=== PATIENT | female | born 1955 | race Caucasian/White ===

== ENCOUNTER → 2020-11-27 13:17 | Outpatient (CLI) | payer MEDICARE, SELFPAY ==
--- NOTE | ~2020-11-27 | MM_ITS ---
EXAMINATION: MM screening [facility] BI w kael HISTORY: Screening mammogram TECHNIQUE: Craniocaudal and mediolateral oblique 3-D tomosynthesis images were obtained and synthetic 2-D images were generated. CAD analysis was submitted and interpreted. COMPARISON: 12/20/2018, 10/01/2012 BREAST PARENCHYMAL COMPOSITION: There are scattered areas of fibroglandular density. FINDINGS: There is no evidence of suspicious mass, calcification, or architectural distortion to sugg est malignancy in either breast. There has been no suspicious interval change. IMPRESSION: 1. No mammographic evidence of malignancy. 2. Recommend routine screening mammography in one year. BI-RADS Category 1: Negative Reviewed, dictated and finalized at location A.
== END ==
PROVIDERS: PCP Family Medicine Adolescent Medicine; Visit Provider Family Medicine Adolescent Medicine
DX: Z12.31 Encounter for screening mammogram for malignant neoplasm of breast (principal)
CPT/HCPCS: 77063; 77067

== ENCOUNTER 2022-04-15 07:52 | Emergency (ER) | payer MEDICARE, SELFPAY ==
[2022-04-15] VITALS (19 sets, daily range): BP systolic 134–153; BP diastolic 65–85; PULSE 57–76; RESP 13–22; TEMP 36.6–36.7; O2SAT 93–100
--- NOTE | ~2022-04-15 | XR_ITS ---
XR chest 2V DATE: 04/15/2022 08:15 INDICATION: Midline chest pain. History of hypertension. TECHNIQUE: PA and lateral views COMPARISON: 12/07/2018 PA and lateral chest FINDINGS: Borderline heart size. No hilar or mediastinal enlargement. No pulmonary infiltrate or cons olidation, pleural effusion or pulmonary vascular congestion or pneumothorax. Calcified primary compl ex on the left consistent with old pulmonary granulomatous disease. Osteopenia. IMPRESSION: No active disease or significant change since 12/07/2018 Reviewed, dictated and finalized at location A.
--- NOTE | 2022-04-15 07:53 | ECG_ITS ---
Measurements Intervals [place] Rate: 72 P: 46 VT: 130 QRS: 5 QRSD: 89 T: 14 QT: 378 QTc: 416 Interpretive Statements SINUS RHYTHM MINIMAL ST DEPRESSION [0.025+ mV ST DEPRESSION] ABNORMAL ECG NO PREVIOUS ECG AVAILABLE FOR COMPARISON Electronically Signed On 04-15-2022 10:47:54 CDT by Johnie Aguilar M.D.
--- NOTE | 2022-04-15 08:01 | ED.CHESTPAIN ---
HPI - Chest Pain General Chief Complaint: Chest Pain Stated Complaint: chest pain, nauseated Time Seen by Provider: 04/15/22 07:54 History of Present Illness HPI narrative: 58-year-old female with a history of GERD presents here with midsternal chest pressure that seems to come up to her neck that started after she ate [place] food last night around 8 PM, accompanied by nausea, denies any difficulty breathing, no focal numbness or weakness. Feels similar to reflux except symptoms lasted all night. No family or personal history of heart problems. Related Data Allergies Allergy/AdvReac Type Severity Reaction Status Date / Time No Known Allergies Allergy Verified 04/15/22 08:04 Review of Systems Review of Systems: CONST: No fever. HEENT: No sore throat C/V: Chest pressure RESP: No difficulty breathing GI: Nausea, epigastric discomfort : No dysuria. M/S: No joint pain. SKIN: No rash. NEURO: [No headache or focal numbness or weakness] PSYCH: [No depression] [facility] Past Medical History Medical History (Updated 04/15/22 @ 11:53 by Tere Tabor MD) GERD (gastroesophageal reflux disease) Surgical History Surgical History (Updated 04/15/22 @ 11:52 by Tere Tabor MD) H/O endoscopy Exam Narrative: EXAMINATION OF ORGAN SYSTEMS/BODY AREAS: Constitutional: Vital signs per nursing GENERAL:Appears uncomfortable in bed HEAD: Normal with no signs of head trauma. EYES: EOMI, conjunctiva normal ENT: Hearing grossly intact LUNGS: Nonlabored breathing. HEART: [Regular rate and rhythm] ABD: [Soft], [mildly tender to palpation epigastric] EXT: Normal range of motion, normal pulses bilateral radial/DP SKIN: [No rashes or lesions.] NEURO: [Alert and oriented x 3. No gross focal sensory or strength deficits.] PSYCH: Normal affect Course Vital Signs Vital signs: Vital Signs Temperature 98.1 F 04/15/22 07:55 Pulse Rate 72 04/15/22 07:55 Respiratory Rate 20 04/15/22 07:55 Blood Pressure 150/85 H 04/15/22 07:55 Pulse Oximetry 99 04/15/22 07:55 Oxygen Delivery Room Air 04/15/22 07:55 Temperature 97.8 F 04/15/22 12:44 Pulse Rate 76 04/15/22 12:44 Respiratory Rate 20 04/15/22 12:44 Blood Pressure 144/77 H 04/15/22 12:44 Pulse Oximetry 94 04/15/22 12:44 Oxygen Delivery Room Air 04/15/22 07:55 MDM - Chest Pain MDM Narrative Medical decision making narrative: ED COURSE AND MEDICAL DECISION MAKIN-year-old female presenting with chest /epigastric pain, I suspect likely GI (gastritis vs PUD), though with her symptoms/risk factors, cardiac workup is initiated. EKG does show some minimal ST depressions in multiple leads; two troponin levels therefore obtained, and both are negative. She is treated with famotidine/zofran. On repeat evaluation, her symptoms resolving, she is no acute distress, I have lower concern for cardiac cause of her symptoms, especially with symptom onset after eating which is similar to her usual heartburn, and nonexertional discomfort, which improved with GI cocktail. I had a long discussion with the patient and with shared decision making, she is comfortable with outpatient management with her own GI doctor and cardiology. She was given clear return instructions by myself in person as well as on discharge paperwork. Procedures: Pulse oximetry interpretation - not hypoxic. EKG interpretation. Review of medical records. Lab Data Result diagrams: 04/15/22 08:05 04/15/22 08:05 Labs: Lab Results 04/15/22 04/15/22 04/15/22 Range/Units 08:05 08:05 08:05 WBC 9.2 (4.5-10.0) K/mm3 RBC 4.77 (4.2-5.4) M/mm3 Hgb 15.4 H (12.0-15.0) g/dL Hct 45.3 (37.0-47.0) % MCV 95.0 (80-100) fl MCH 32.3 (26-34) pg MCHC 34.0 (32-36) g/dl RDW 12.7 (11.5-14.5) % Plt Count 211 (150-375) k/mm3 MPV 9.3 (7.4-10.4) fl Immature Gran % (Auto) 0.2 (0-0.5) % Neut % (Auto) 79.6 H (45.5-73.1
[2022-04-15] MEDS: ONDANSETRON INJ 4 MG/2 ML VIAL IV PUSH (08:06)
[2022-04-15] MEDS: FAMOTIDINE 20 MG/2 ML VIAL IV PUSH (08:06)
[2022-04-15] MEDS: PANTOPRAZOLE SODIUM IV 40 MG VIAL IV PUSH (08:06)
[2022-04-15 08:10] LABS: Basophils Percent Auto 0.4 % (0.2-1.2); Eosinophils Percent Auto 0.4 % (0-4.4); Hematocrit 45.3 % (37.0-47.0); Hemoglobin 15.4 g/dL (12.0-15.0); Immature Granulocyte Absolute 0.02 K/mm3 (0.00-0.031); Immature Granulocyte Percent A 0.2 % (0-0.5); Lymphocytes Absolute Auto 1.18 K/mm3 (0.9-3.2); Lymphocytes Percent Auto 12.8 % (18.3-44.2); Mean Corpuscular Hemoglobin 32.3 pg (26-34); Mean Platelet Volume 9.3 fl (7.4-10.4); Monocytes Absolute Auto 0.6 K/mm3 (0.1-0.6); Monocytes Percent Auto 6.6 % (2.6-8.5); Neutrophils Absolute Auto 7.3 K/mm3 (1.3-6.7); Neutrophils Percent Auto 79.6 % (45.5-73.1); Platelet Count Result 211 k/mm3 (150-375); Red Blood Count 4.77 M/mm3 (4.2-5.4); Red Cell Distribution Width 12.7 % (11.5-14.5); White Blood Count 9.2 K/mm3 (4.5-10.0)
[2022-04-15 08:22] LABS: Alanine Aminotransferase 17 U/L (6-35); Albumin Level 4.8 g/dL (3.5-5.1); Alkaline Phosphatase 74 U/L (38-126); Anion Gap 9 mmol/L (8-16); Aspartate Amino Transferase 22 U/L (14-36); Bilirubin,Total 1.3 mg/dL (0.2-1.3); Blood Urea Nitrogen 10 mg/dL (7-17); Carbon Dioxide 29 mmol/L (22-30); Chloride 100 mmol/L (98-107); Estimated CRCL calculation 80 ml/min; Estimated Glomerular Filt Rate > 60; Glucose 121 mg/dL (65-110); Lipase 51 U/L (23-300); Potassium 3.9 mmol/L (3.4-5.0); Sodium 138 mmol/L (137-145)
[2022-04-15 08:26] LABS: INR 1.1; Prothrombin Time 13.7 Seconds (11.1-14.7)
[2022-04-15 08:27] LABS: Partial Thromboplastin Time 27.4 SECONDS (22.3-36.8)
[2022-04-15 08:33] LABS: Troponin I 0.033 ng/mL (0.000-0.034)
[2022-04-15 11:28] LABS: Troponin I 0.029 ng/mL (0.000-0.034)
== END 2022-04-15 12:44 | disposition home or self-care (01) ==
PROVIDERS: Emergency Provider Emergency Medicine; PCP Family Medicine Adolescent Medicine
DX: R07.89 Other chest pain (principal); K21.9 Gastro-esophageal reflux disease without esophagitis; R94.31 Abnormal electrocardiogram [ECG] [EKG]
CPT/HCPCS: 36415; 71046; 80053; 83690; 84484; 85025; 85610; 85730; 93005; 96374; 96375; 99284; C9113; J2405

== ENCOUNTER 2022-11-24 10:34 | Outpatient (CLI) | payer MEDICARE, SELFPAY ==
[2022-11-24 11:09] LABS: Alanine Aminotransferase 17 U/L (6-35); Albumin Level 4.3 g/dL (3.5-5.1); Alkaline Phosphatase 66 U/L (38-126); Anion Gap 7 mmol/L (8-16); Aspartate Amino Transferase 22 U/L (14-36); Bilirubin,Total 1.4 mg/dL (0.2-1.3); Blood Urea Nitrogen 14 mg/dL (7-17); Calcium 8.8 mg/dL (8.4-10.2); Carbon Dioxide 29 mmol/L (22-30); Chloride 104 mmol/L (98-107); Cholesterol 182 mg/dL (0-200); Estimated Glomerular Filt Rate > 60; Glucose 92 mg/dL (65-110); HDL Direct 71 mg/dL; Potassium 3.9 mmol/L (3.4-5.0); Sodium 140 mmol/L (137-145); Triglycerides 76 mg/dL (<150); Uric Acid 4.7 mg/dL (2.5-7.5)
[2022-11-24 11:20] LABS: LDL Cholesterol Direct 84 mg/dL
== END 2022-11-24 10:35 | disposition home or self-care (01) ==
PROVIDERS: PCP Family Medicine Adolescent Medicine; Visit Provider Physician Assistant
DX: M10.9 Gout, unspecified (principal); Z13.220 Encounter for screening for lipoid disorders; I12.9 Hypertensive chronic kidney disease with stage 1 through stage 4 chronic kidney disease, or unspecified chronic kidney disease; N18.30 Chronic kidney disease, stage 3 unspecified
CPT/HCPCS: 36415; 80053; 80061; 84550

== ENCOUNTER 2022-12-16 06:49 | Emergency (ER) | payer MEDICARE, SELFPAY ==
[2022-12-16 07:01] VITALS: BP 134/79; PULSE 59; RESP 18; TEMP 36.6; O2SAT 100
[2022-12-16] MEDS: KETOROLAC 30 MG/ML VIAL (*BKC) IM (08:11)
--- NOTE | 2022-12-16 08:25 | ED.GENADULT ---
HPI - General Adult General Chief complaint: Neck Pain/Injury Stated complaint: Neck pain Time Seen by Provider: 12/16/22 07:30 History of Present Illness HPI narrative: Patient is a 67-year-old female who presents to the ER with neck pain. Located over the right trapezius. Ongoing since yesterday. Has point tenderness. No known injury. Was sent home from work today. Reports this happens to her several times a year. She has been taking some baclofen without improvement. No focal weakness of her arm. She does occasionally get some tingling that will go into her arm. She reports usually this is improved with massage but her masseuse is currently booked. No fevers or chills or sweats. No redness. No additional concern. Pain worse with direct pressure, turning the head, and occasional movements of the arm. Related Data Home Medications Medication Instructions Recorded Confirmed biotin 5,000 mcg sublingual tablet 5,000 mcg sublingual DAILY 11/18/22 11/18/22 Allergies Allergy/AdvReac Type Severity Reaction Status Date / Time No Known Allergies Allergy Verified 11/18/22 14:52 Review of Systems Constitutional: Constitutional: Denies chills and Denies fever(s) Musculoskeletal: Musculoskeletal: Denies arthralgias, Denies joint swelling and Reports muscle cramps Integumentary/Breasts: Skin/Breast: Denies erythema and Denies rash Neurologic: Denies focal weakness and Denies numbness Comments: Right arm tingling intermittent PMFSH Past Medical History Medical History (Updated 12/16/22 @ 08:26 by Max Marie MD) GERD (gastroesophageal reflux disease) Surgical History Surgical History (Updated 11/18/22 @ 17:36 by Kathy Sheets, CHELSIE) H/O endoscopy History of foot surgery Bilateral - 1988 History of total knee arthroplasty Bilateral 2012 History of tubal ligation Family History Family History (Updated 11/18/22 @ 17:37 by Kathy Sheets, CHELSIE) Father Hypertension Mother , Age 51 Ovarian cancer Social History Social History (Updated 11/18/22 @ 17:36 by Kathy Sheets, CHELSIE) Smoking status: Former smoker Alcohol intake: current Alcohol use details: Beer a couple of nights per week. Occupation/Education: occupation Gender identity (if verbalized by the patient): Female Exam Narrative: GENERAL: Well-appearing, well-nourished, and in no acute distress. HEAD: Normocephalic, atraumatic. ENT: Mucous membranes moist. EXTREMITIES: Normal range of motion. No edema. Tender palpation of the right trapezius musculature with palpable knotting at location of maximal tenderness. SKIN: Warm, dry, no rash. NEURO: Alert and oriented x3. PSYCH: Normal mood and affect. Course Course Emergency Course: Discussed diagnosis and treatment plan with the patient. She verbalized understanding. 1 dose of Toradol here. Continue baclofen at home in conjunction with anti-inflammatories. Recommend massage and hydration. Vital Signs Vital signs: Vital Signs Temperature 97.8 F 12/16/22 07:01 Pulse Rate 59 L 12/16/22 07:01 Respiratory Rate 18 12/16/22 07:01 Blood Pressure 134/79 12/16/22 07:01 Pulse Oximetry 100 12/16/22 07:01 Temperature 97.8 F 12/16/22 07:01 Pulse Rate 59 L 12/16/22 07:01 Respiratory Rate 18 12/16/22 07:01 Blood Pressure 134/79 12/16/22 07:01 Pulse Oximetry 100 12/16/22 07:01 Medical Decision Making Vital Signs Vital Signs: Vital Signs Temperature 97.8 F 12/16/22 07:01 Pulse Rate 59 L 12/16/22 07:01 Respiratory Rate 18 12/16/22 07:01 Blood Pressure 134/79 12/16/22 07:01 Pulse Oximetry 100 12/16/22 07:01 Temperature 97.8 F 12/16/22 07:01 Pulse Rate 59 L 12/16/22 07:01 Respiratory Rate 18 12/16/22 07:01 Blood Pressure 134/79 12/16/22 07:01 Pulse Oximetry 100 12/16/22 07:01 Discharge Plan Discharge Clinical Impression: Strain of trapezius muscle Patient
== END 2022-12-16 08:55 | disposition home or self-care (01) ==
PROVIDERS: Emergency Provider Emergency Medicine; PCP Family Medicine Adolescent Medicine
DX: S46.811A Strain of other muscles, fascia and tendons at shoulder and upper arm level, right arm, initial encounter (principal); K21.9 Gastro-esophageal reflux disease without esophagitis; Z96.653 Presence of artificial knee joint, bilateral; Z87.891 Personal history of nicotine dependence; X58.XXXA Exposure to other specified factors, initial encounter
CPT/HCPCS: 96372; 99283; J1885

== ENCOUNTER 2023-02-24 10:35 | Outpatient (CLI) | payer MEDICARE, SELFPAY ==
--- NOTE | 2023-02-24 | ECG_ITS ---
Measurements Intervals [place] Rate: 63 P: 62 [place]: 107 QRS: 17 QRSD: 104 T: 32 QT: 405 QTc: 417 Interpretive Statements SINUS RHYTHM WITH SHORT [place] INTERVAL NONSPECIFIC ST ABNORMALITY ABNORMAL ECG COMPARED TO ECG 04/15/2022 07:59:16 NO SIGNIFICANT CHANGES Electronically Signed On 02-24-2023 12:02:06 CDT by Johnie Aguilar M.D.
[2023-02-24 11:44] LABS: Alanine Aminotransferase 17 U/L (6-35); Albumin Level 4.1 g/dL (3.5-5.1); Alkaline Phosphatase 53 U/L (38-126); Anion Gap 0 mmol/L (8-16); Aspartate Amino Transferase 24 U/L (14-36); Bilirubin,Total 1.2 mg/dL (0.2-1.3); Blood Urea Nitrogen 17 mg/dL (7-17); Calcium 9.2 mg/dL (8.4-10.2); Carbon Dioxide 34 mmol/L (22-30); Chloride 105 mmol/L (98-107); Estimated Glomerular Filt Rate > 60; Glucose 97 mg/dL (65-110); Potassium 4.4 mmol/L (3.4-5.0); Sodium 139 mmol/L (137-145)
== END 2023-02-24 10:36 | disposition home or self-care (01) ==
LOC: ANHLAB 10:38
PROVIDERS: PCP Family Medicine Adolescent Medicine; Visit Provider Podiatrist Foot & Ankle Surgery
DX: Z01.818 Encounter for other preprocedural examination (principal); R94.31 Abnormal electrocardiogram [ECG] [EKG]
CPT/HCPCS: 36415; 80053; 93005

== ENCOUNTER 2024-10-05 00:48 | Day surgery (SDC) | payer MEDICARE, SELFPAY ==
[2024-09-21 11:19] VITALS: BMI 27.4
--- OUTSIDE RECORDS SUMMARY | 2024-10-05 00:51 | XMS_ITS | Clinical Summary ---
Author Organization [facility] Address [address] [place] [id number] Care Team Providers Care Collar Stitcher Name Role Phone Thong Landaverde MD Primary Care Provider [phone] Social History Tobacco Use Types Packs/Day Years Used Date Smoking Tobacco: Never Assessed Comments Unknown Sex and Gender Information Value Date Recorded Sex Assigned at Not on file Legal Sex Female 8:08 PM CDT Gender Identity Not on file Sexual Orientation Not on file Plan of Treatment Health Maintenance Due Date Last Done Comments Colorectal Cancer Screening Colonoscopy (10 Years) 1953 Hepatitis C 1971 DTaP, Tdap and Td Vaccines ( 1 - Tdap) 1972 Mammogram Screening 1993 Zoster Vaccines (1 of 2) 2003 Dexa Scan (General) 2018 Pneumococcal Vaccine: 65+ Ye ars (1 of 1 - PCV) 2018 COVID-19 Vaccine ( - 2023-2 5 season) 2024 Influenza Adult (#1) 2024 RSV Immunization or 60+ Years (1 - 1-dose 75+ series) 2028 Meningococcal B Vaccine Aged Out No l onger eligible based on patient's age to complete this topic Meningococcal Vaccine Aged Out No machelle kyle eligible based on patient's age to complete this topic RSV Immunizations Under 20 Months Aged Out No longer eligible based on patient's age to complete this topic Care Teams Collar Stitcher Relationship Specialty Start Date End Date Thong Landaverde MD [address] [address] PCP - General 06/09/10
[2024-10-05 11:07] VITALS: BP 140/82; PULSE 140; RESP 16; TEMP 36.8; O2SAT 98
[2024-10-05] MEDS: LACTATED RINGERS 1,000 ML 150 ML IV CONT (11:18)
--- NOTE | 2024-10-05 11:32 | P.PNAN_ITS ---
Anes - Initial Pre Proc Eval Procedure: Operation Date: 10/05/24 12:30 Proposed Procedures p Esophagogastroduodenoscopy - Roshan Jones MD Date/Time: 10/05/24 11:32 Surgeon: Roshan Jones MD Pre Op Diagnosis: GERD Patient Data Age: 69 Gender: F Height: 1.68 m Weight: 80.3 kg Last Vital Signs Temp 36.8 C 10/05/24 11:07 Pulse 140 H 10/05/24 11:07 Resp 16 10/05/24 11:07 BP 140/82 10/05/24 11:07 Pulse Ox 98 10/05/24 11:07 O2 Del Method Room Air 10/05/24 11:07 Allergies Allergy/AdvReac Type Severity Reaction Status Date / Time No Known Allergies Allergy Verified 10/05/24 11:01 Home Medications ?Medication ?Instructions ?Recorded ?Confirmed ?Type losartan 50 mg-hydrochlorothiazide See Rx Instructions .Route 12/25/23 10/05/24 Rx 12.5 mg tablet .COMPLEX #30 tabs dicyclomine 10 mg capsule 10 mg PO BID PRN diarrhea #30 caps 08/02/24 09/21/24 Rx Patient hx anesthesia problems: none Family hx anesthesia problems: none Results Review: All pre-operative results and documents have been reviewed as part of the pre- operative evaluation. [facility] Past Medical History Medical History (Updated 10/05/24 @ 11:33 by Tam Hernandez MD) Hypertension Difficulty swallowing GERD (gastroesophageal reflux disease) Surgical History Surgical History History of total knee arthroplasty (2012) Bilateral 2012 History of foot surgery (1988) Bilateral - 1988 History of tubal ligation (1991) H/O endoscopy Family History Family History Father Hypertension Mother , Age 51 Ovarian cancer Social History Social History Smoking status: Former smoker Alcohol intake: current Alcohol use details: Beer a couple of nights per week. Substance use: current Substance use type: marijuana Other substance usage details: smokes Do You Feel Safe in your Home?: Yes Lack of Transportation: No Lack of Food: Never True Current Housing: I Have Housing Concerned About Future Housing: No Difficulty Paying Gas/Electric Bills: No Difficulty Paying for Meds: No Currently Unemployed: No Education: High School Diploma/GED Difficulty w/ Childcare or Family Care: No Occupation/Education: occupation Gender identity (if verbalized by the patient): Female Anes - Evponcho Final PreProcedure Day of Procedure 10/05/24 11:32 Patient weight: overweight Heart: regular rate and rhythm Lungs: clear to auscultation Airway: Mallampati scale class II Neurological: alert and oriented Last oral intake: >/= 8 hours ASA classification: II Emergent: no Anesthetic plan: proceed Anesthesia type and monitoring: general GIVS and standard monitoring Results Review: All pre-operative results and documents have been reviewed as part of the pre- operative evaluation. Informed Consent: The patient's anesthetic plan and its attendant risks and benefits were discussed with the patient/family/POA. Questions were solicited and answers provided to the satisfaction of the patient/family/POA.
--- NOTE | 2024-10-05 12:39 | PM.IMHP ---
H&P: HPI History of Present Illness Date/Time: 10/05/24 12:39 Chief Complaint: Dysphagia Narrative: the patient has a history of chronic GERD, and at least 15 years of intermittent dysphagia. She has undergone several sessions of endoscopic dilatation, approximately every 3 years. she is currently experiencing intermittent dysphagia to solid foods again. She is here for EGD. Review of Systems Review of Systems: All systems reviewed & are unremarkable except as noted in HPI and below PMFSH Past Medical History Medical History (Updated 10/05/24 @ 12:41 by Roshan Jones MD) Difficulty swallowing Hypertension GERD (gastroesophageal reflux disease) Surgical History Surgical History History of total knee arthroplasty (2012) Bilateral 2012 History of foot surgery (1988) Bilateral - 1988 History of tubal ligation (1991) H/O endoscopy Family History Family History Father Hypertension Mother , Age 51 Ovarian cancer Social History Social History Smoking status: Former smoker Alcohol intake: current Alcohol use details: Beer a couple of nights per week. Substance use: current Substance use type: marijuana Other substance usage details: smokes Do You Feel Safe in your Home?: Yes Lack of Transportation: No Lack of Food: Never True Current Housing: I Have Housing Concerned About Future Housing: No Difficulty Paying Gas/Electric Bills: No Difficulty Paying for Meds: No Currently Unemployed: No Education: High School Diploma/GED Difficulty w/ Childcare or Family Care: No Occupation/Education: occupation Gender identity (if verbalized by the patient): Female Meds Home Medications and Allergies Home Medications ?Medication ?Instructions ?Recorded ?Confirmed ?Type losartan 50 mg-hydrochlorothiazide See Rx Instructions .Route 12/25/23 10/05/24 Rx 12.5 mg tablet .COMPLEX #30 tabs dicyclomine 10 mg capsule 10 mg PO BID PRN diarrhea #30 caps 08/02/24 09/21/24 Rx Allergies Allergy/AdvReac Type Severity Reaction Status Date / Time No Known Allergies Allergy Verified 10/05/24 11:01 Vital Signs Vital Signs - 24 hr 10/05/24 11:07 Temperature 98.3 F Pulse Rate 140 H Respiratory Rate 16 Blood Pressure 140/82 Pulse Oximetry 98 Oxygen Delivery Room Air Exam Const: General: cooperative and healthy appearing Resp: Effort & Inspection: normal respiratory effort and able to speak in complete sentences Auscultation: clear to auscultation bilaterally Cardio: Rate: regular rate Rhythm: regular rhythm GI: Inspection: normal to inspection GI Palp: No No hepatosplenomegaly present Auscultation: normal bowel sounds Rectal Exam: deferred Skin: General skin exam: normal color Psych: Appearance: grossly normal Mental Status: mental status grossly normal Assessment and Plan Assessment and plan (1) GERD (gastroesophageal reflux disease): Code(s): K21.9 - Gastro-esophageal reflux disease without esophagitis Status: Acute (2) Difficulty swallowing: Code(s): R13.10 - Dysphagia, unspecified Status: Acute Assessment and Plan: The patient is deemed a good candidate for the procedure. differential diagnosis includes peptic stricture versus Schatzki ring. Consent signed. Will proceed. Will perform dilatation if needed.
[2024-10-05 13:02] VITALS: BP 138/82; PULSE 90; RESP 20; O2SAT 98
[2024-10-05 13:12] VITALS: BP 131/81; PULSE 69; RESP 20; O2SAT 100
[2024-10-05 13:22] VITALS: BP 134/79; PULSE 68; RESP 22; O2SAT 98
== END 2024-10-05 13:32 | disposition home or self-care (01) ==
PROVIDERS: PCP Family Medicine Adolescent Medicine; Referring Provider Nurse Practitioner Family; Visit Provider Internal Medicine Gastroenterology
PROC: 0DJ08ZZ Inspection of Upper Intestinal Tract, Via Natural or Artificial Opening Endoscopic (ICD-10-PCS; CPT 43249; principal; 2024-10-05 12:30)
DX: K22.2 Esophageal obstruction (principal); K21.9 Gastro-esophageal reflux disease without esophagitis; K44.9 Diaphragmatic hernia without obstruction or gangrene; I10 Essential (primary) hypertension; F12.90 Cannabis use, unspecified, uncomplicated; Z98.890 Other specified postprocedural states; Z98.51 Tubal ligation status; Z87.891 Personal history of nicotine dependence; Z80.41 Family history of malignant neoplasm of ovary
CPT/HCPCS: 43249; C1726; J7120

== ENCOUNTER 2025-03-27 12:02 | Outpatient (CLI) | payer MEDICARE, SELFPAY ==
--- OUTSIDE RECORDS SUMMARY | 2025-03-27 12:08 | XMS_ITS | Clinical Summary ---
Author Organization [facility] Address [address] [place] [address] Phone Care Team Providers Care Product Marketing Engineer Name Role Phone Unavailable Primary Care Provider Unavailabl e Allergies No known active allergies Medications amoxicillin-cla vulanate (AUGMENTIN) 875-125 mg tablet Take 1 Tablet by mouth every 12 hours for 10 days. Take all doses with food to minimize upset stomach/nause a. 20 Tablet 03/26/2025 8:09 PM CDT 03/26/2025 04/05/20 25 Active ondansetron (ZOFRAN ODT) 4 mg Tablet, Rapid Dissolve Dissolve 1 Tablet (4 mg) on top of tongue and swallow with saliva every 8 hours as needed for nausea/vomiti ng. 10 Tablet 03/26/2025 8:09 PM CDT 03/26/2025 Active Encounters Date Type Department Care Team Description 03/26/2025 2:19 PM CDT - 03/26/2025 8:14 PM CDT Emergency [facility] Emergency Department [address] [place] [address] Luis Armando Mejia MD Enteritis (Primary Dx) Discharge Disposition: Home or Self Care 03/26/2025 Travel from Last 3 Months Social History Tobacco Use Types Packs/Day Years Used Date Smoking Tobacco: Never Smokeless Tobacco: Never Tobacco Cessation:Counseling Given: Not Answered Alcohol Use Standard Drinks/Week Comments Yes 30 (1 standard drink = 0.6 oz pu re alcohol) Comments Unknown Sex and Gender Information Value Date Recorded Sex Assigned at Not on file Legal Sex Female 9:38 AM CDT Gender Identity Not on file Sexual Orientation Not on file Last Filed Vital Signs Vital Sign Reading Time Taken Comments Blood Pressure 106/82 03/26/2025 7:50 PM CDT Pulse 69 03/26/2025 7:50 PM CDT Temperature 36.2 C (97.2 F) 03/26/2025 1:07 PM CDT Respiratory Rate 14 03/26/2025 7:50 PM CDT Oxygen Saturation 98% 03/26/2025 7:50 PM CDT Inhaled Oxygen Concentration - - Weight 79.4 kg (175 lb) 03/26/2025 2:53 PM CDT Height 165.1 cm (5' 5) 03/26/2025 2:53 PM CDT Body Mass Index 29.12 03/26/2025 2:53 PM CDT Plan of Treatment Health Maintenance Due Date Last Done Comments DTAP/TDAP/TD VACCINES (1 - Tdap) 1972 BREAST CANCER SCREENING 1993 COLORECTAL SCREENING 1998 Colorectal Cancer Screening 1998 FIT-DNA Q 3 years 1998 FIT/FOBT Q 1 year 1998 Flex Sig/CT Colonography Q 5 years 1998 PNEUMOCOCCAL VACCINE 50+ YEARS (1 of 1 - PCV) 09/22/19 04 ZOSTER VACCINE (1 of 2) 2003 OSTEOPOROSIS SCREENING 2018 Medicare Advantage ([place]) Prev entative Visit/Annual Wellness Visit 08/30/2024 INFLUENZA VACCINE (#1) 2025 RSV VACCINE (60+ or ) (1 - 1-dose 75+ series) 2028 Procedures Procedure Name Priority Date/Time Associated Diagnosis Comments GI PATHOGEN PCR PANEL Stat 03/26/2025 8:[address] ABDOMEN PELVIS W CONTRAST Stat 03/26/2025 6:47 PM CDT EXTRA TUBE (URINE WOODARD) Stat 03/26/2025 5:48 PM CDT URINALYSIS W/REFLEX MICROSCOPIC Stat 03/26/2025 5:48 PM CDT ETHANOL LEVEL Stat 03/26/2025 2:14 PM CDT LIPASE Stat 03/26/2025 2:14 PM CDT TROPONIN 2 HR, 5TH GEN Timed Study 03/26/2025 2:14 PM CDT XR CHEST PA OR AP 1 VW Stat 03/26/2025 12:12 PM CDT EXTRA TUBE (BLUE) Stat 03/26/2025 10: 03 AM CDT EXTRA TUBE Stat 03/26/2025 10:03 AM CDT COMPREHENSIVE METABOLIC PANEL Stat 03/26/2025 10:03 AM CDT CBC WITH DIFFERENTIAL Stat 03/26/2025 10:03 AM CDT TROPONIN BASELINE, 5TH GEN Stat 03/26/2025 10:03 AM CDT EKG 12-LEAD Stat 03/26/2025 9:53 AM CDT from Last 3 Months Results * GI PATHOGEN PCR PANEL (03/26/2025 8:03 PM CDT) [facility] GI Pathogen PCR panel NOT DETECTED No nucleic acids detected. 03/26/2025 9:36 PM CDT [facility] Stool STOOL SPECIMEN / Unknown Collection / Unknown 03/26/2025 8:03 PM CDT 03/26/2025 8:06 PM CDT Narrative [facility] - 03/26/2025 9:36 PM CDT The Film Array GI Panel is a multiplexed nucleic acid detection test for 22 targets of bacteria, viruses, and parasites in stool that cause infectious diarrhea. Bacteria: Campylobacter C. difficile Plesiomonas shigelloides Salmonella Vibrio Vibrio cholerae Yersinia enterocolitica Enteroaggregative E. Coli (EAEC) Enteropathogenic E. Coli (EPEC) Enterotoxigenic E. Coli (ETEC) Shiga-like toxin-producing E. Coli (STEC) E. Coli O157 Shigella/Enteroinvasive E. Coli (EIEC) Viruses: Adenovirus F 40/41 Astrovirus Norovirus GI/GII Rotavirus A Sapovirus Parasites: Cryptosporidium Cyclospora cayetanensis Entamoeba histolytica Giardia duodenalis us Luis Armando Mejia MD MICROBIOLOGY - GENERAL ORDERABLES Final Result [facility] [id number] [place] [address] * CT ABDOMEN PELVIS W CONTRAST (03/26/2025 6:47 PM CDT) Anatomical Region Laterality Modality Abdomen Computed Tomogra phy 03/26/2025 5:27 PM CDT Impressions 03/26/2025 6:59 PM CDT IMPRESSION: 1. Wall thickening and adjacent stranding along loops of small bowel with fluid-filled loops of small bowel and colon likely represents enteritis. Small volume ascites. 2. Colonic diverticulosis. Uterine fibroids. Cholelithiasis. 3. Mild thickening distal esophagus may represent esophagitis. DICTATION LOCATION: Location 7 - [facility] 03/26/2025 6:59 PM CDT EXAMINATION: CT ABDOMEN PELVIS W CONTRAST DATE: 03/26/2025 6:54 PM HISTORY: Acute abdominal pain TECHNIQUE: Transaxial computed tomographic images of the abdomen and pelvis were obtained following the uneventful administration of 80 ml Isovue 370 according to standard protocol. The examination was performed with the adjustment of mA according to the patient size and/or the use of Iterative Reconstruction Technique. COMPARISON: None available. FINDINGS: Mild left lower lobe atelectasis. Heart is mildly enlarged. Mild wall thickening in the distal esophagus may represent esophagitis. The liver is normal. Gallstones are seen within otherwise normal gallbladder. Adrenal glands are normal. Renal cysts are seen. No hydronephrosis. Spleen and pancreas are normal. Celiac and superior mesenteric arteries are patent. Portal and splenic veins are patent. Small volume ascites. Urinary bladder is partially decompressed. Urinary fibroids are seen. No adnexal masses seen. Colonic diverticulosis is seen without evidence of diverticulitis. No gastrointestinal tract obstruction. Mild small bowel thickening is seen. Fluid-filled loops of small bowel and colon are seen. Mild stranding is seen along the mesentery. Appendix is normal. No free air. No abdominal pelvic lymphadenopathy. Multilevel degenerative changes are seen in the spine. No suspicious osseous lesion. No acute fracture. Degenerative changes are seen in the spine. Procedure Note Mary Chaney MD - 03/26/2025 EXAMINATION: CT ABDOMEN PELVIS W CONTRAST DATE: 03/26/2025 6:54 PM HISTORY: Acute abdominal pain TECHNIQUE: Transaxial computed tomographic images of the abdomen and pelvis were obtained following the uneventful administration of 80 ml Isovue 370 according to standard protocol. The examination was performed with the adjustment of mA according to the patient size and/or the use of Iterative Reconstruction Technique. COMPARISON: None available. FINDINGS: Mild left lower lobe atelectasis. Heart is mildly enlarged. Mild wall thickening in the distal esophagus may represent esophagitis. The liver is normal. Gallstones are seen within otherwise normal gallbladder. Adrenal glands are normal. Renal cysts are seen. No hydronephrosis. Spleen and pancreas are normal. Celiac and superior mesenteric arteries are patent. Portal and splenic veins are patent. Small volume ascites. Urinary bladder is partially decompressed. Urinary fibroids are seen. No adnexal masses seen. Colonic diverticulosis is seen without evidence of diverticulitis. No gastrointestinal tract obstruction. Mild small bowel thickening is seen. Fluid-filled loops of small bowel and colon are seen. Mild stranding is seen along the mesentery. Appendix is normal. No free air. No abdominal pelvic lymphadenopathy. Multilevel degenerative changes are seen in the spine. No suspicious osseous lesion. No acute fracture. Degenerative changes are seen in the spine. IMPRESSION: 1. Wall thickening and adjacent stranding along loops of small bowel with fluid-filled loops of small bowel and colon likely represents enteritis. Small volume ascites. 2. Colonic diverticulosis. Uterine fibroids. Cholelithiasis. 3. Mild thickening distal esophagus may represent esophagitis. DICTATION LOCATION: [address] Luis Armando Mejia MD CT ORDERABLES Final Result * EXTRA TUBE (URINE WOODARD) (03/26/2025 5:48 PM CDT) Urine URINE SPECIMEN OBTAINED BY CLEAN CATCH PROCEDURE / Unknown Collection / Unknown 03/26/2025 5:48 PM CDT 03/26/2025 5:58 PM CDT Luis Armando Mejia MD URINE ORDERABLES Final Result [facility] CLIA# [id number] [place] [address] * (ABNORMAL) URINALYSIS WITH REFLEX MICROSCOPIC (03/26/2025 5:48 PM CDT) COLOR UA Yellow Pale to Dark Yellow 03/26/2025 6:19 PM CDT [facility] CLARITY UA Clear Clear 03/26/2025 6:19 PM CDT [facility] SPECIFIC GRAVITY UA >1.035(H) 1.003 - 1.035 03/26/2025 6:19 PM CDT [facility] PH UA 5.0 5.0 - 8.0 03/26/2025 6:19 PM CDT [facility] LEUKOCYTE ESTERASE UA Negative Negative 03/26/2025 6:19 PM CDT [facility] NITRITE UA Negative Negative 03/26/2025 6:19 PM CDT [facility] PROTEIN UA Negative Negative 03/26/2025 6:19 PM CDT [facility] GLUCOSE UA Negative Negative 03/26/2025 6:19 PM CDT [facility] KETONES UA 2+(A) Negative 03/26/2025 6:19 PM CDT [facility] UROBILINOGEN UA Normal <2.0 mg/dL 6:19 PM CDT [facility] BILIRUBIN UA Negative Negative 03/26/2025 6:19 PM CDT [facility] BLOOD UA 2+(A) Negative 03/26/2025 6:19 PM CDT [facility] WBC UA 0-2 0 - 2 /hpf 03/26/2025 6:19 PM CDT [facility] RBC UA 11-25(A) 0 - 2 /hpf 03/26/2025 6:19 PM CDT [facility] BACTERIA UA Negative Negative /hpf 03/26/2025 6:19 PM CDT [facility] EPITHELIAL CELLS, URINE 0-5 0 - 5 /hpf 03/26/2025 6:19 PM CDT [facility] HYALINE CAST None Seen None Seen, 0-2 /lpf 03/26/2025 6:19 PM CDT [facility] Urine URINE SPECIMEN OBTAINED BY CLEAN CATCH PROCEDURE / Unknown Collection / Unknown 03/26/2025 5:48 PM CDT 03/26/2025 5:58 PM CDT Luis Armando Mejia MD URINE ORDERABLES Final Result [facility] [id number] [place] [address] * TROPONIN 2 HR, 5TH GEN (03/26/2025 2:14 PM CDT) TROPONIN T, 2 HR 5TH GEN <6 <=10 ng/L 03/26/2025 3:21 PM CDT [facility] Blood Venipuncture / Unknown 03/26/2025 2:14 PM CDT 03/26/2025 2:50 PM CDT Narrative [facility] - 03/26/2025 3:21 PM CDT Troponin Undetectable Delay in collection of timed specimen beyond recommended collection interval. Results must be interpreted in clinical context. Unable to calculate delta. Luis Armando Mejia MD CHEMISTRY ORDERABLES F inal Result [facility] [id number] [place] [address] * LIPASE (03/26/2025 2:14 PM CDT) LIPASE 19 13 - 60 U/L 03/26/2025 3:21 PM CDT [facility] Blood Venipuncture / Unknown 03/26/2025 2:14 PM CDT 03/26/2025 2:50 PM CDT Luis Armando Mejia MD CHEMISTRY ORDERABLES F inal Result Performing Organization Address [facility]/ZIP Co de Phone Number [facility] CLIA# [id number] [address] [place] [address] * ETHANOL LEVEL (03/26/2025 2:14 PM CDT) ETHANOL <10.10 No Ref Range Estab mg/dL 03/26/2025 3:21 PM CDT [facility] ETHANOL % <0.01 %w/v 03/26/2025 3:21 PM CDT [facility] Blood Venipuncture / Unknown 03/26/2025 2:14 PM CDT 03/26/2025 2:50 PM CDT Luis Armando Mejia MD CHEMISTRY ORDERABLES F inal Result Performing Organization Address [facility]/ZIP Co de Phone Number [facility]# [id number] [place] [address] * XR CHEST PA OR AP 1 VW (03/26/2025 12:12 PM CDT) Anatomical Region Laterality Modality Chest Computed Radiogr aphy 03/26/2025 12:1 3 PM CDT Impressions 03/26/2025 12:21 PM CDT FINDINGS/IMPRESSION: The lungs are clear without focal consolidation. There is no pleural effusion. No pneumothorax. The cardiomediastinal silhouette is normal. DICTATION LOCATION: Location [address] [place] [address] Narrative 03/26/2025 12:21 PM CDT EXAMINATION: XR CHEST PA OR AP 1 VW DATE: 03/26/2025 12:12 PM HISTORY: Chest Pain; See Reason for Exam COMPARISON: No prior study is available for comparison at the time of this dictation. Procedure Note Jarocho Stover MD - 03/26/2025 EXAMINATION: XR CHEST PA OR AP 1 VW DATE: 03/26/2025 12:12 PM HISTORY: Chest Pain; See Reason for Exam COMPARISON: No prior study is available for comparison at the time of this dictation. FINDINGS/IMPRESSION: The lungs are clear without focal consolidation. There is no pleural effusion. No pneumothorax. The cardiomediastinal silhouette is normal. DICTATION LOCATION: Location [address] [place] [address] Luis Armando Mejia MD DIAGNOSTIC IMAGING ORD ERABLES Final Result * EXTRA TUBE (BLUE) (03/26/2025 10:03 AM CDT) Blood Venipuncture / Unknown 03/26/2025 10:03 AM CDT 03/26/2025 10:16 AM CDT Luis Armando Mejia MD HEMATOLOGY ORDERABLES Final Result Performing Organization Address City/[facility]/ZIP Co de Phone Number [facility]# [id number] [place] [address] * TROPONIN BASELINE, 5TH GEN (03/26/2025 10:03 AM CDT) TROPONIN T, BASELINE 5TH GEN <6 <=10 ng/L 03/26/2025 11:35 AM CDT [facility] Blood Venipuncture / Unknown 03/26/2025 10:03 AM CDT 03/26/2025 10:19 AM CDT Narrative [facility] - 03/26/2025 11:35 AM CDT Troponin Undetectable Luis Armando Mejia MD CHEMISTRY ORDERABLES F inal Result Performing Organization Address City/[facility]/ZIP Co de Phone Number [facility] CLIA# [id number] [place] [address] * (ABNORMAL) CBC WITH DIFFERENTIAL (03/26/2025 10:03 AM CDT) [facility] WBC 12.4(H) 4.0 - 9.8 K/uL 03/26/2025 10:27 AM CDT [facility] RBC 5.33(H) 3.90 - 4.90 M/uL 03/26/2025 10:27 AM CDT [facility] HEMOGLOBIN 17.3(H) 11.8 - 14.8 g/dL 03/26/2025 10:27 AM CDT [facility] HEMATOCRIT 46.7(H) 35.5 - 44.0 % 03/26/2025 10:27 AM CDT [facility] MCV 87.6 82.0 - 99.0 fL 03/26/2025 10:27 AM CDT [facility] MCH 32.5 27.2 - 32.6 pg 03/26/2025 10:27 AM CDT [facility] MCHC 37.0(H) 31.5 - 35.5 g/dL 03/26/2025 10:27 AM CDT [facility] RDW 11.9 11.5 - 14.5 % 03/26/2025 10:27 AM CDT [facility] RDW-STDEV 38.3 37.1 - 48.7 fL 03/26/2025 10:27 AM CDT [facility] PLATELETS 287 140 - 350 K/uL 03/26/2025 10:27 AM CDT [facility] MPV 9.7 9.3 - 12.4 fL 03/26/2025 10:27 AM CDT [facility] NEUTROPHILS 84 % 03/26/2025 10:27 AM CDT [facility] LYMPHOCYTES 10 % 03/26/2025 10:27 AM CDT [facility] MONOCYTES 6 % 03/26/2025 10:27 AM CDT [facility] EOSINOPHILS 0 % 03/26/2025 10:27 AM CDT [facility] BASOPHILS 0 % 03/26/2025 10:27 AM CDT [facility] IMMATURE GRANULOCYTES 0 % 03/26/2025 10:27 AM CDT [facility] NEUTROPHIL ABSOLUTE 10.45(H) 1.90 - 7.00 K/uL 03/26/2025 10:27 AM CDT [facility] LYMPHOCYTE ABSOLUTE 1.20 0.70 - 4.50 K/uL 03/26/2025 10:27 AM CDT [facility] MONOCYTE ABSOLUTE 0.68 0.10 - 1.30 K/uL 03/26/2025 10:27 AM CDT [facility] EOSINOPHIL ABSOLUTE 0.03 0.00 - 0.70 K/uL 03/26/2025 10:27 AM CDT [facility] BASOPHILS ABSOLUTE 0.02 0.00 - 0.20 K/uL 03/26/2025 10:27 AM CDT [facility] IMMATURE GRANULOCYTES ABSOLUTE 0.05(H) 0.00 - 0.03 K/uL 03/26/2025 10:27 AM CDT [facility] Blood Venipuncture / Unknown 03/26/2025 10:03 AM CDT 03/26/2025 10:25 AM CDT Luis Armando Mejia MD HEMATOLOGY ORDERABLES Final Result [facility] CLIA# [id number] [place] [address] * (ABNORMAL) COMPREHENSIVE METABOLIC PANEL (03/26/2025 10:03 AM CDT) SODIUM 135(L) 136 - 145 mmol/L 03/26/2025 11:35 AM CDT [facility] POTASSIUM 3.7 3.4 - 5.1 mmol/L 03/26/2025 11:35 AM CDT [facility] CHLORIDE 97(L) 98 - 107 mmol/L 03/26/2025 11:35 AM CDT [facility] CO2 20(L) 22 - 29 mmol/L 03/26/2025 11:35 AM [facility] CALCIUM 10.0 8.6 - 10.4 mg/dL 03/26/2025 11:35 AM [facility] BUN 17 6 - 20 mg/dL 03/26/2025 11:35 AM [facility] CREATININE 0.64 0.51 - 0.95 mg/dL 03/26/2025 11:35 AM [facility] Comment:The GFR result is no t clinically significant on patients <18 or >70 years of age. GLUCOSE 141(H) 74 - 99 mg/dL 03/26/2025 11:35 AM [facility] TOTAL PROTEIN 7.4 6.3 - 8.7 g/dL 03/26/2025 11:35 AM [facility] ALBUMIN 4.4 3.5 - 5.2 g/dL 03/26/2025 11:35 AM [facility] BILIRUBIN TOTAL 2.8(H) 0.0 - 1.1 mg/dL 03/26/2025 11:35 AM [facility] ALKALINE PHOSPHATASE 67 40 - 150 U/L 03/26/2025 11:35 AM [facility] AST 22 0 - 33 U/L 03/26/2025 11:35 AM [facility] ALT 19 0 - 33 U/L 03/26/2025 11:35 AM [facility] GFR >60 mL/min/1.7 3 sq meter 03/26/2025 11:35 AM [facility] Comment:eGFR calculated with 2020 CKD-EPI equation. Vegetarian diet, extremely high or low muscle mass, and may affect results. Cystatin C with Glomerular Filtration Rate is a suitable alternative for these patients. ANION GAP 18(H) 8 - 16 mmol/L 03/26/2025 11:35 AM [facility] Blood Venipuncture / Unknown 03/26/2025 10:03 AM CDT 03/26/2025 10:19 AM CDT us Luis Armando Mejia MD CHEMISTRY ORDERABLES F inal Result [facility] CLIA# [id number] [address] [place] [address] * EKG 12-LEAD (03/26/2025 9:53 AM CDT) 03/26/2025 9:53 AM CDT Narrative INTERFACE SYSTEM - 03/26/2025 11:38 [place] [address] Test Date: 2025-03-26 Pat Name: KIARA MICHAEL Department: 92 Room: Gender: Female Clammer: CC : 1955 Requested By: Order Number: [id number] Reading MD: Isaiah Snow Measurements Intervals [place] Rate: 91 P: -19 SD: 116 QRS: -15 QRSD: 74 T: -9 QT: 346 QTc: 425 Interpretive Statements Normal sinus rhythm Inferior infarct, age undetermined Cannot rule out Anterior infarct, age undetermined Nonspecific ST changes Abnormal ECG No previous ECG available for comparison Electronically Signed On 03-26-2025 11:38:03 CDT by Isaiah Snow Procedure Note Isaiah Snow MD - 03/26/2025 [place] [address] Test Date: 2025-03-26 Pat Name: KIARA RODRIGUEZ Department: 92 Room: Gender: Female Clammer: CC : [id number] Requested By: Order Number: [id number] Reading : Isaiah Snow Measurements Intervals [place] Rate: 91 P: -19 SD: 116 QRS: -15 QRSD: 74 T: -9 QT: 346 QTc: 425 Interpretive Statements Normal sinus rhythm Inferior infarct, age undetermined Cannot rule out Anterior infarct, age undetermined Nonspecific ST changes Abnormal ECG No previous ECG available for comparison Electronically Signed On 03-26-2025 11:38:03 CDT by Isaiah Snow us Luis Armando Mejia MD ECG ORDERABLES Final Result INTERFACE SYSTEM Refer to clinic/hospital department from Last 3 Months Insurance [facility] [id number] RX [employer] Member Subscriber Plan / Payer (Ef fective 2018-Present) Name:Kiara Rodriguez Relation to Subscriber:Self Name:Kiara Rodriguez Payer ID:Not on file Group ID:[id number] Type:RX Medicare Part D Address: [address] [employer] [place] [employer] (INTERNAL) [facility]
--- OUTSIDE RECORDS SUMMARY | 2025-03-27 12:08 | XMS_ITS | Encounter Summary ---
Author Organization [facility] Address [address] [place] [address] Care Team Providers Care Fitter Up Name Role Phone Unavailable Primary Care Provider Unavailabl e Reason for Visit * Reason Comments Shortness of Breath Pt arrived to ED wit h complaint of diarrhea and shortness of breath/ chest pain for over 1 week. Diarrhea started on WednesdayVomiting about 5x Diarrhea non stopChest pain intermitted in upper abdomin areaDenies abdominal surgeries or cardiac hx Encounter Details Date Type Department Care Team (Late st Contact Info) Description 03/26/2025 2:19 PM CDT - 03/26/2025 8:14 PM CDT Emergency [facility] Emergency Department [address] [place] [address] [place] [address] [place] [address] Enteritis (Primary Dx) Discharge Disposition: Home or Self Care Social History Tobacco Use Types Packs/Day Years [...] on file Sexual Orientation Not on file documented as of this encounter Last Filed Vital Signs Vital Sign Reading [...] Mass Index 29.12 03/26/2025 2:53 PM CDT documented in this encounter Discharge Instructions * Discharge Instructions* Luis Armando Mejia MD - 03/26/2025 7:45 PM CDT Please follow up with your GI doctor tomorrow as scheduled. Return to the ER for any new concerningor worsening symptoms, or for any other concerns. documented in this encounter Medications at Time of Discharge amoxicillin-clav ulanate (AUGMENTIN) 875-125 mg tablet Take 1 Tablet by mouth every 12 hours for 10 days. Take all doses with food to minimize upset stomach/nausea . 20 Tablet 03/26/2025 8:09 PM CDT 03/26/2025 04/05/2025 ondansetron (ZOFRAN ODT) 4 mg Tablet, Rapid Dissolve Dissolve 1 Tablet (4 mg) on top of tongue and swallow with saliva every 8 hours as needed for nausea/vomitin g. 10 Tablet 03/26/2025 8:09 PM CDT 03/26/2025 documented as of this encounter Progress Notes * Joslyn Mcdonald, - 03/26/2025 5:35 PM CDT Computed Tomography Medication and Flush Protocol - Imaging Services [facility] THIS PROTOCOL IS IMPLEMENTED WHEN AN APPROVED PROVIDER ORDERS A CT SCAN WITH CONTRAST BY PAPER OR ELECTRONIC ORDER. ORDERS ARE ENTERED ???PER PROTOCOL OR STANDING - COSIGN REQUIRED.?? Enter the protocol in the patient's electronic health record using smartphrase:.[facility] Communication Orders: For ordered imaging procedures requiring intravenous access: Initiate a peripheral IV, if not already in place, and discontinue IV prior to discharge. Medication Orders: *Any exception to these contrast protocols must be approved by a Radiologist and documented in the EHR Progress notes. When multiple medications are listed with the comment ???OR?? them, select the first option until challenges from product availability make this option unavailable Local anesthetic for use to initiate IV: ADULT Lidocaine 4% topical cream (L.M.X.4) applied topically ONE TIME prior to IV catheter insertion PRN (L.M.X.4 % should be applied 15 minutes prior to procedure) PEDIATRIC Lidocaine 4% topical cream (L.M.X.4) applied topically ONE TIME prior to IV catheter insertion PRN (apply 30 minutes prior to procedure) Sucrose 24% (Squirts) given PO prior to IV catheter insertion (administer 1 - 2 minutes prior to procedure) OR Sucrose 24% (Tootsweet; Sweet-Ease) oral solution 0.2 mL oral (apply to tongue on pacifier or clean, gloved finger), ONE TIME 2 minutes prior to painful procedure. May repeat dose x1 PRN to complete procedure. Sodium chloride 0.9% (normal saline) flush up to 10 mLs PRN for IV evaluation, saline lock, or medication administration. Sodium chloride 0.9% (normal saline) bolus up to 200 mLs PRN for power injection IV evaluation and IV Contrast flush. For all invasive procedures: obtain Lidocaine 1% for intra-procedure administration. If Lidocaine 1% unavailable, may substitute Lidocaine 2%. Procedure Specific Medications: When multiple medications are listed with the comment ???OR?? them, select the first option until challenges from product availability make this option unavailable. CT ORAL CONTRAST PROTOCOLS FOR ADULTS Use Iopamidol 76% (Isovue 370) [370 mg/mL organically bound iodine] OR Iopamidol 61% (Isovue 300) [300 mg/mL organically bound iodine] OR Iohexol (Omnipaque) [240 mg/ml organically bound iodine] (SUBJECT TO AVAILABILITY) for CT scan unless patient has a documented allergy to contrast dye. If allergy present, use Barium Sulfate (Creamy Vanilla Smoothie Readi-Cat 2 OR EZ Paque) for procedure. If at any time the Legal Records Manager has a question about which option to administer, seek clarification from a Radiologist. Iopamidol 76% (Isovue 370) [370 mg/mL organically bound iodine]: 15ml added to 900mL of clear liquid of patient's choice. Preferred route is oral. May use nasoenteric tube if needed. Administer 900mLof the diluted Iopamidol (Isovue- 370), orally, one time only. Iopamidol 61% (Isovue 300) [300 mg/mL organically bound iodine]: 300mg/ml: 30ml added to 960mL of clear liquid of patient's choice. Preferred route is oral. May use nasoenteric tube if needed. Administer 960mL of the diluted Isovue 300, orally, one time only. Iohexol (Omnipaque) [240 mg/ml organically bound iodine]: 50ml added to 960mL of clear liquid of patient's choice. Preferred route is oral. May use nasoenteric tube if needed. (SUBJECT TO AVAILABILITY). Administer 960mL of the diluted Omipaque, orally, one time only. Barium Sulfate (Creamy Vanilla Smoothie Readi-Cat 2) oral suspension: Preferred route is oral. May use nasoenteric tube if needed. Administer 450mL of barium sulfate, orally, one time only. OR Barium Sulfate (EZ Paque /Vanilla Silq) 96% oral suspension: Preferred route is oral. May use nasoenteric tube if needed. Administer 900mL of barium sulfate, orally, one time only. Bariatric Patient: Post-Surgery to 1 year - 50 mL total volume. NO carbonated liquids lopamidol 61% (Isovue 300) [300 mg/mL organically bound iodine]: mixed with water. Draw 50 mL of mixed solution for patient. Preferred route is orally. May use nasoenteric tube if needed. OR lohexol (Omnipaque) 240 mg/mL [organically bound iodine]: mixed with water. Draw 50mL of mixed solution for patient. Preferred route is orally. May use nasoenteric tube if needed. (SUBJECT TO AVAILABILITY) After 1 year - no more than 236 mL (8oz) total volume. NO carbonated liquids. lopamidol 61% (Isovue 300) 300 mg/mL [organically bound iodine]: mixed with water OR lohexol (Omnipaque) 240 mg/mL organically bound iodine: mixed with water (SUBJECT TO AVAILABILITY) For Enterography, give patient 450ml Breeza, a flavored beverage. For Cystogram (CT Pelvis): Iopamidol 61% (Isovue 300) 300 mg/mL [organically bound iodine] 50mL, diluted with 250mL of sterileNS. Inject Isovue into 250mL bag of NS. Clamp bajwa catheter prior to instilling solution via catheter. Instill up to 300mL of Isovue and NS solution into bladder via catheter, one time CT ORAL CONTRAST PROTOCOLS FOR PEDIATRICS When multiple medications are listed with the comment ???OR?? them, select the first option until challenges from product availability make this option unavailable. Pediatrics = up to age 18 Pediatric Radiologist will approve of one of the following products selected for procedure. Barium Sulfate (Creamy Vanilla Smoothie Readi-Cat 2 OR EZ Paque 96% oral suspension: preferred route is oral. May use nasoenteric tube if needed. [place] to 3 months Administer up to 90mL of Barium Sulfate, orally, one time only 4 months to 1 year old Administer up to 240mL of Barium sulfate, orally, one time only 1 year old to 5 years old Administer up to 360mL of Barium sulfate, orally, one time only 5 years old to 10 years old Administer up to 480mL of Barium sulfate, orally, one time only Over 10 years old Administer up to 600mL of Barium sulfate, orally, one time only Iopamidol 76% (Isovue 370) [370 mg/mL organically bound iodine] oral solution OR Iohexol (Omnipaque) [240 mg/ml organically bound iodine]: oral solution (SUBJECT TO AVAILABILITY) Dilute 25mL of Iopamidol with 480mL of clear liquid of patient's choice. Administer the diluted solution per age as follows: Preferred route is orally. May use nasoenteric tube if needed. Send any remaining diluted Iopamidol (Isovue 370) OR Iohexol (Omnipaque) solution with the patient to CT. [place] Administer 45mL of diluted Iopamidol (Isovue 370) OR Iohexol (Omnipaque) oral solution, orally every 30 minutes x 2 doses. 1 month to 1 year old Administer 120mL of diluted Iopamidol (Isovue 370) OR Iohexol (Omnipaque) oral solution, orally every 30 min x 2 doses. 1 year old to 5 years old Administer 180mL of diluted Iopamidol (Isovue 370) OR Iohexol (Omnipaque)orally every 30 min x 2 doses. 5 years old to 10 years old Administer 240mL of diluted Iopamidol (Isovue 370) OR Iohexol (Omnipaque) orally every 30 min x 2 doses. Over 10 years old Administer 300mL of diluted Iopamidol (Isovue 370) OR Iohexol (Omnipaque) orally every 30 min x [address] RECTAL CONTRAST PROTOCOLS When multiple medications are listed with the comment ???OR?? them, select the first option until challenges from product availability make this option unavailable. ADULTS: Iopamidol 61% (Isovue 300) [300 mg/mL organically bound iodine]: Dilute 30mL of Isovue with 900mL of warm water in an enema bag. Administer the diluted solution rectally via gravity per patient's tolerance, up to 950mLs, one time only. OR Iohexol (Omnipaque) [240 mg/ml organically bound iodine]: Dilute 50mL of Omnipaque with 900mL of warm water in an enema bag. Administer the diluted solution rectally via gravity per patient's tolerance, up to 950mLs, one time only. (SUBJECT TO AVAILABILITY) CT IV CONTRAST PROTOCOLS When multiple medications are listed with the comment ???OR?? them, select the first option until challenges from product availability make this option unavailable. Multiple doses of iodine contrast within a 24-hour period are a risk factor for NELLIE and should be avoided if possible. Emergent or other unusual circumstances where multiple doses of contrast are required in a short interval time should prompt consideration by the referring professional and radiologist to discuss the risks and benefits of contrast media administration. ADULTS: (If patient is less than 55kg and confirm dose with radiologist) Iopamidol Injection 76% (Isovue 370) [370 mg/mL organically bound iodine]: Administer up to 2.2mL/kg (to MAX of 200mL) of Iopamidol 76%, intravenously, one time only. OR Iopamidol Injection 61% (Isovue 300) [300 mg/mL organically bound iodine]: Administer 2.2mL/kg of Iopamidol 61%, intravenously, one time only. If the exam has been completed before the entire dose has been administered, stop the injection. PEDIATRICS: Use weight-based dosing if patient is less than 55kg and confirm dose with radiologist. to 15 years old Administer up to 2.2mL/kg (to MAX of 80 mL) of Iopamidol Injection 76% (Isovue 370) [370 mg/mL organically bound iodine] intravenously, one time only. 15 years old and older Administer up to 2.2mL/kg (to MAX of 125mL) of Iopamidol Injection 76% (Isovue 370) [370 mg/mL organically bound iodine] intravenously, one time only. Initiating Department: Imaging Services - CT Approved by: P&T Committee 05.04.2024 Approved by: [facility] Committee 05.04.2024 Approved by: Logan Zhao MD 05.04.2024 Approved by: Umm Hicks RN [facility] 05.04.2024 Approved by: Ray Guadalupe [facility] 05.04.2024 documented in this encounter ED Notes * Shelton Borja RN - 03/26/2025 2:36 PM CDT RN unable to find stretcher for pt 1445 Stretcher found. * Luis Armando Mejia MD - 03/26/2025 9:40 AM CDT HISTORY OF PRESENT ILLNESS History of Present Illness This is a patient with a history of intermittent chest pain and gastrointestinal issues presenting with recent exacerbation of symptoms. She is accompanied by her friend. The patient reports experiencing chest pain last week, prompting her to visit her primary care physician at [facility]. Labs and a stress test were ordered but have not yet been completed. She has an appointment with a compatibility test engineer at [facility] tomorrow. The chest pain has been intermittent for several years. She underwent an EKG last week. She has not had any abdominal surgeries. On 03/24/2025, the patient began experiencing diarrhea and vomiting, which she believes is related to consuming corn on the cob. This is the third occurrence of illness following corn consumption, with this episode being more severe than the previous ones. She also experienced severe stomach pain, causing her to double over. She has not eaten or drunk anything since 03/23/2025. She reports no fever. [place], [place] and feeling unwell. She felt better after vomiting and using the bathroom a few times, but her condition worsened the following morning. She has not felt well since then. She has been monitoring her blood pressure at home. The patient experiences nausea upon standing or moving, and her friend suspects she may be dehydrated. Her friend notes that the patient has been vomiting frequently and had watery diarrhea 4 to 5 times today. She resumed taking losartan/hydrochlorothiazide 50/12.5 about 2 weeks ago. SOCIAL HISTORY She drinks alcohol daily, consuming approximately a six-pack per day, five days a week. She has nothad any withdrawal symptoms. PAST MEDICAL HISTORY REVIEWED MEDICAL: Patient has no past medical history on file. SURGICAL: Patient has no past surgical history on file. ALLERGIES Patient has no known allergies. PHYSICAL EXAM INITIAL VS BP: 126/76 (03/26/25 0942), Heart Rate: 90 bpm (03/26/25 09), Resp: 17 (03/26/25 09), Pulse: 79(03/26/25 1307), Temp: 97.5 ??F (36.4 ??C) (03/26/25 09), Temp src: Oral (03/26/25941), SpO2: 100 % (03/26/25 09), Height: 5' 5 (165.1 cm) (03/26/25 1453), Weight: 79.4 kg (175 lb) (03/26/25 1453), BMI (Calculated): (!) 29.13 (03/26/25 145) No LMP recorded. Blood pressure 118/75, pulse 72, temperature 97.2 ??F (36.2 ??C), temperature source Oral, resp. rate 17, height 5' 5 (1.651 m), weight 79.4 kg (175 lb), SpO2 100%. Physical Exam Vitals and nursing note reviewed. Constitutional: General: She is not in acute distress. Appearance: She is not ill-appearing or toxic-appearing. HENT: Head: Atraumatic. Mouth/Throat: Mouth: Mucous membranes are moist. Cardiovascular: Rate and Rhythm: Normal rate and regular rhythm. Pulmonary: Effort: Pulmonary effort is normal. No respiratory distress. Breath sounds: No wheezing or rales. Abdominal: General: There is no distension. Tenderness: There is no abdominal tenderness. Musculoskeletal: Cervical back: Normal range of motion. Skin: General: Skin is warm and dry. Neurological: General: No focal deficit present. Mental Status: She is alert and oriented to person, place, and time. Physical Exam DIAGNOSTICS LAB: CBC WITH DIFFERENTIAL - Abnormal Result Value WBC 12.4 (*) RBC 5.33 (*) HEMOGLOBIN 17.3 (*) HEMATOCRIT 46.7 (*) MCV 87.6 MCH 32.5 MCHC 37.0 (*) RDW 11.9 RDW-STDEV 38.3 PLATELETS 287 MPV 9.7 NEUTROPHILS 84 LYMPHOCYTES 10 MONOCYTES 6 EOSINOPHILS 0 BASOPHILS 0 IMMATURE GRANULOCYTES 0 NEUTROPHIL ABSOLUTE 10.45 (*) LYMPHOCYTE ABSOLUTE 1.20 MONOCYTE ABSOLUTE 0.68 EOSINOPHIL ABSOLUTE 0.03 BASOPHILS ABSOLUTE 0.02 IMMATURE GRANULOCYTES ABSOLUTE 0.05 (*) COMPREHENSIVE METABOLIC PANEL - Abnormal SODIUM 135 (*) POTASSIUM 3.7 CHLORIDE 97 (*) CO2 20 (*) CALCIUM 10.0 BUN 17 CREATININE 0.64 GLUCOSE 141 (*) TOTAL PROTEIN 7.4 ALBUMIN 4.4 BILIRUBIN TOTAL 2.8 (*) ALKALINE PHOSPHATASE 67 AST 22 ALT 19 GFR >60 ANION GAP 18 (*) URINALYSIS WITH REFLEX MICROSCOPIC - Abnormal COLOR UA Yellow CLARITY UA Clear SPECIFIC GRAVITY UA >1.035 (*) PH UA 5.0 LEUKOCYTE ESTERASE UA Negative NITRITE UA Negative PROTEIN UA Negative GLUCOSE UA Negative KETONES UA 2+ (*) UROBILINOGEN UA Normal BILIRUBIN UA Negative BLOOD UA 2+ (*) WBC UA 0-2 RBC UA 11-25 (*) BACTERIA UA Negative EPITHELIAL CELLS, URINE 0-5 HYALINE CAST None Seen TROPONIN BASELINE, 5TH GEN - Normal TROPONIN T, BASELINE 5TH GEN <6 TROPONIN 2 HR, 5TH GEN - Normal TROPONIN T, 2 HR 5TH GEN <6 LIPASE - Normal LIPASE 19 GI PATHOGEN PCR PANEL EXTRA TUBE EXTRA TUBE (BLUE) ETHANOL LEVEL ETHANOL <10.10 ETHANOL % <0.01 EXTRA TUBE (URINE WOODARD) TROPONIN 6 HR, 5TH GEN RADIOLOGY: CT ABDOMEN PELVIS W CONTRAST Radiologist Impression IMPRESSION: 1. Wall thickening and adjacent stranding along loops of small bowel with fluid-filled loops of small bowel and colon likely represents enteritis. Small volume ascites. 2. Colonic diverticulosis. Uterine fibroids. Cholelithiasis. 3. Mild thickening distal esophagus may represent esophagitis. DICTATION LOCATION: Location [address] [place] [address] XR CHEST PA OR AP 1 VW Radiologist Impression FINDINGS/IMPRESSION: The lungs are clear without focal consolidation. There is no pleural effusion. No pneumothorax. The cardiomediastinal silhouette is normal. DICTATION LOCATION: Location [address] [place] [address] EKG: PROCEDURES Procedures MEDICAL DECISION MAKING AND PLAN OF CARE Assessment & Plan I ED Course as of 03/26/251943Mar 26, 2025 1423 ECG shows normal sinus rhythm rate [address] and T wave abnormality [ZR] 1423 Chest x-ray shows no acute findings [ZR] ED Course User Index [ZR] Luis Armando Mejia MD Medical Decision Making Differential dx considered including but not limited to: AAA, dissection, mesenteric ischemia, perforated viscous, SBO, volvulus, appendicitis, cholecystitis, pancreatitis, diverticulitis, UTI, gonadal torsion The patient was unable to provide a stool sample in the ER. On reevaluation prior to discharge I discussed her test results. At this time she said she felt much better after IV fluids. She says I feel fine now and wished to go home. Suspect infectious versus inflammatory enteritis. She has a follow-up with GI tomorrow. Amount and/or Complexity of Data Reviewed Labs: ordered. Decision-making details documented in ED Course. Radiology: ordered. Decision-making details documented in ED Course. ECG/medicine tests: ordered and independent interpretation performed. Decision- making details documented in ED Course. Risk OTC drugs. Prescription drug management. Decision regarding hospitalization. Clinical Scoring & Consults Medications Administered During the ED Stay from 03/26/2025 0940 to 03/26/20251943 Date/Time Order Dose Route Action 03/26/2025 1000 CDT aspirin (ROSI CHEWABLE) chewable tablet 324 mg -- Oral Canceled Entry 03/26/2025 1000 CDT sodium chloride flush injection 10 mL -- IV Canceled Entry 03/26/2025 1445 CDT lactated ringers bolus solution 1,000 mL -- IV Canceled Entry 03/26/2025 1735 CDT iopamidoL (ISOVUE-370) 76% injection (drawn from multi-use bulk pack) 80 mL 80 mL IV Contrast Given . LAST VS BP: 118/75 (03/26/25 1850), Heart Rate: 72 bpm (03/26/25 1850), Resp: 17 (03/26/25 1850), Pulse: 72(03/26/25 1850), Temp: 97.2 ??F (36.2 ??C) (03/26/25 1307), Temp src: Oral (03/26/25 1307), SpO2: 100 % (03/26/251849) CLINICAL IMPRESSION Diagnosis None DISPOSITION, EDUCATION AND MEDICATION RECONCILIATION Medications reconciled. See after visit summary for patient education on discharged patients. documented in this encounter Miscellaneous Notes * ED Bed Hold Comment Note - Damon Reynolds, RN - 03/26/2025 2:19 PM CDT Bed: 2421 Expected date: 03/26/25 Expected time: 2:13 PM Means of arrival: Comments: Looking for bed documented in this encounter Plan of Treatment Not on file documented as of this encounter Procedures Procedure Name Priority Date/Time Associated Diagnosis Comments GI PATHOGEN PCR PANEL Stat 03/26/2025 8:[address] ABDOMEN PELVIS W CONTRAST Stat 03/26/2025 6:47 PM CDT EXTRA TUBE (URINE WOODARD) Stat 03/26/2025 5:48 PM CDT URINALYSIS W/REFLEX MICROSCOPIC Stat 03/26/2025 5:48 PM CDT TROPONIN 2 HR, 5TH GEN Timed Study 03/26/2025 2:14 PM CDT LIPASE Stat 03/26/2025 2:14 PM CDT ETHANOL LEVEL Stat 03/26/2025 2:14 PM CDT XR CHEST PA OR AP 1 VW Stat 03/26/2025 12:12 PM CDT EXTRA TUBE (BLUE) Stat 03/26/2025 10: 03 AM CDT EXTRA TUBE Stat 03/26/2025 10:03 AM CDT TROPONIN BASELINE, 5TH GEN Stat 03/26/2025 10:03 AM CDT CBC WITH DIFFERENTIAL Stat 03/26/2025 10:03 AM CDT COMPREHENSIVE METABOLIC PANEL Stat 03/26/2025 10:03 AM CDT EKG 12-LEAD Stat 03/26/2025 9:53 AM CDT documented in this encounter Results * GI PATHOGEN PCR PANEL (03/26/2025 8:03 PM CDT) [facility] GI Pathogen PCR panel NOT DETECTED No nucleic acids detected. 03/26/2025 9:36 PM CDT [facility] Stool STOOL SPECIMEN / Unknown Collection / Unknown 03/26/2025 8:03 PM CDT 03/26/2025 8:06 PM CDT [facility] - 03/26/2025 9:36 PM CDT The Film [...] Cryptosporidium Cyclospora cayetanensis Entamoeba histolytica Giardia duodenalis Luis Armando Mejia MD MICROBIOLOGY - GENERAL ORDERABLES Final Result [facility] - [facility] HELEN# [id number] [place] [address] * CT ABDOMEN PELVIS W CONTRAST (03/26/2025 [...] esophagus may represent esophagitis. DICTATION LOCATION: Location [address] [place] [address] 03/26/2025 6:59 PM CDT EXAMINATION: CT ABDOMEN [...] distal esophagus may represent esophagitis. DICTATION LOCATION: [address] [place] Luis Armando Mejia MD CT ORDERABLES Final Result * EXTRA TUBE (URINE WOODARD) (03/26/2025 5:48 PM CDT) Urine URINE SPECIMEN OBTAINED BY CLEAN CATCH PROCEDURE / Unknown Collection / Unknown 03/26/2025 5:48 PM CDT 03/26/2025 5:58 PM CDT Luis Armando Mejia MD URINE ORDERABLES Final Result [facility] CLIA# [id number] [place] [address] * (ABNORMAL) URINALYSIS WITH REFLEX MICROSCOPIC (03/26/2025 5:48 PM CDT) COLOR UA Yellow Pale to Dark Yellow 03/26/2025 6:19 PM CDT [facility] CLARITY UA Clear Clear 03/26/2025 6:19 PM CDT [facility] SPECIFIC GRAVITY UA >1.035(H) 1.003 - 1.035 03/26/2025 6:19 PM CDT [facility] PH UA 5.0 5.0 - 8.0 03/26/2025 6:19 PM CDT [facility] LEUKOCYTE ESTERASE UA Negative Negative 03/26/2025 6:19 PM CDT [facility] NITRITE UA Negative Negative 03/26/2025 6:19 PM CDT [facility] PROTEIN UA Negative Negative 03/26/2025 6:19 PM CDT [facility] GLUCOSE UA Negative Negative 03/26/2025 6:19 PM CDT [facility] KETONES UA 2+(A) Negative 03/26/2025 6:19 PM CDT [facility] UROBILINOGEN UA Normal <2.0 mg/dL 6:19 PM CDT [facility] BILIRUBIN UA Negative Negative 03/26/2025 6:19 PM CDT [facility] BLOOD UA 2+(A) Negative 03/26/2025 6:19 PM CDT [facility] WBC UA 0-2 0 - 2 /hpf 03/26/2025 6:19 PM CDT [facility] RBC UA 11-25(A) 0 - 2 /hpf 03/26/2025 6:19 PM CDT [facility] BACTERIA UA Negative Negative /hpf 03/26/2025 6:19 PM CDT [facility] EPITHELIAL CELLS, URINE 0-5 0 - 5 /hpf 03/26/2025 6:19 PM CDT [facility] HYALINE CAST None Seen None Seen, 0-2 /lpf 03/26/2025 6:19 PM CDT [facility] Urine URINE SPECIMEN OBTAINED BY CLEAN CATCH PROCEDURE / Unknown Collection / Unknown 03/26/2025 5:48 PM CDT 03/26/2025 5:58 PM CDT Luis Armando Mejia MD URINE ORDERABLES Final Result [facility] CLIA# [id number] [place] [address] * ETHANOL LEVEL (03/26/2025 2:14 PM CDT) ETHANOL <10.10 No Ref Range Estab mg/dL 03/26/2025 3:21 PM CDT [facility] ETHANOL % <0.01 %w/v 03/26/2025 3:21 PM CDT [facility] Blood Venipuncture / Unknown 03/26/2025 2:14 PM CDT 03/26/2025 2:50 PM CDT Luis Armando Mejia MD CHEMISTRY ORDERABLES F inal Result [facility] CLIA# [id number] [place] [address] * LIPASE (03/26/2025 2:14 PM CDT) LIPASE 19 13 - 60 U/L 03/26/2025 3:21 PM CDT [facility] Blood Venipuncture / Unknown 03/26/2025 2:14 PM CDT 03/26/2025 2:50 PM CDT Luis Armando Mejia MD CHEMISTRY ORDERABLES F inal Result Performing Organization Address [facility] Co de Phone Number [facility] CLIA# [id number] [place] [address] * TROPONIN 2 HR, 5TH GEN (03/26/2025 2:14 PM CDT) TROPONIN T, 2 HR 5TH GEN <6 <=10 ng/L 03/26/2025 3:21 PM CDT [facility] Blood Venipuncture / Unknown 03/26/2025 2:14 PM CDT 03/26/2025 2:50 PM CDT Narrative [facility] - 03/26/2025 3:21 PM CDT Troponin Undetectable Delay in collection of timed specimen beyond recommended collection interval. Results must be interpreted in clinical context. Unable to calculate delta. Luis Armando Mejia MD CHEMISTRY ORDERABLES F inal Result Performing Organization Address [facility] Co de Phone Number [facility] [id number] [place] [address] * XR CHEST PA OR AP 1 VW (03/26/2025 12:12 PM CDT) Anatomical Region Laterality Modality Chest Computed Radiogr aphy 03/26/2025 12:1 3 PM CDT Impressions 03/26/2025 12:21 PM CDT FINDINGS/IMPRESSION: The lungs are clear without focal consolidation. There is no pleural effusion. No pneumothorax. The cardiomediastinal silhouette is normal. DICTATION LOCATION: Location [address] [place] [address] Narrative 03/26/2025 12:21 PM CDT EXAMINATION: XR [...] cardiomediastinal silhouette is normal. DICTATION LOCATION: Location [address] [place] [address] Luis Armando Mejia MD DIAGNOSTIC IMAGING ORD ERABLES Final Result * EXTRA TUBE (BLUE) (03/26/2025 10:03 AM CDT) Blood Venipuncture / Unknown 03/26/2025 10:03 AM CDT 03/26/2025 10:16 AM CDT Luis Armando Mejia MD HEMATOLOGY ORDERABLES Final Result [facility] CLIA# [id number] [place] [address] * (ABNORMAL) COMPREHENSIVE METABOLIC PANEL (03/26/2025 10:03 AM CDT) SODIUM 135(L) 136 - 145 mmol/L 03/26/2025 11:35 AM CDT [facility] POTASSIUM 3.7 3.4 - 5.1 mmol/L 03/26/2025 11:35 AM CDT [facility] CHLORIDE 97(L) 98 - 107 mmol/L 03/26/2025 11:35 AM CDT [facility] CO2 20(L) 22 - 29 mmol/L 03/26/2025 11:35 AM CDT [facility] CALCIUM 10.0 8.6 - 10.4 mg/dL 03/26/2025 11:35 AM CDT [facility] BUN 17 6 - 20 mg/dL 03/26/2025 11:35 AM [facility] CREATININE 0.64 0.51 - 0.95 mg/dL 03/26/2025 11:35 AM [facility] Comment:The GFR result is no t clinically significant on patients <18 or >70 years of age. GLUCOSE 141(H) 74 - 99 mg/dL 03/26/2025 11:35 AM [facility] TOTAL PROTEIN 7.4 6.3 - 8.7 g/dL 03/26/2025 11:35 AM [facility] ALBUMIN 4.4 3.5 - 5.2 g/dL 03/26/2025 11:35 AM [facility] BILIRUBIN TOTAL 2.8(H) 0.0 - 1.1 mg/dL 03/26/2025 11:35 AM [facility] ALKALINE PHOSPHATASE 67 40 - 150 U/L 03/26/2025 11:35 AM [facility] AST 22 0 - 33 U/L 03/26/2025 11:35 AM [facility] ALT 19 0 - 33 U/L 03/26/2025 11:35 AM [facility] GFR >60 mL/min/1.7 3 sq meter 03/26/2025 11:35 AM [facility] Comment:eGFR calculated with 2020 CKD-EPI equation. Vegetarian diet, extremely high or low muscle mass, and may affect results. Cystatin C with Glomerular Filtration Rate is a suitable alternative for these patients. ANION GAP 18(H) 8 - 16 mmol/L 03/26/2025 11:35 AM [facility] Blood Venipuncture / Unknown 03/26/2025 10:03 AM CDT 03/26/2025 10:19 AM CDT us Luis Armando Mejia MD CHEMISTRY ORDERABLES F inal Result [facility] CLIA# [id number] [place] [address] * (ABNORMAL) CBC WITH DIFFERENTIAL (03/26/2025 10:03 AM CDT) [facility] Signature WBC 12.4(H) 4.0 - 9.8 K/uL 03/26/2025 10:27 AM CDT [facility] RBC 5.33(H) 3.90 - 4.90 M/uL 03/26/2025 10:27 AM CDT [facility] HEMOGLOBIN 17.3(H) 11.8 - 14.8 g/dL 03/26/2025 10:27 AM CDT [facility] HEMATOCRIT 46.7(H) 35.5 - 44.0 % 03/26/2025 10:27 AM CDT [facility] MCV 87.6 82.0 - 99.0 fL 03/26/2025 10:27 AM CDT [facility] [employer] [facility] MCH 32.5 27.2 - 32.6 pg 03/26/2025 10:27 AM CDT [facility] MCHC 37.0(H) 31.5 - 35.5 g/dL 03/26/2025 10:27 AM CDT [facility] RDW 11.9 11.5 - 14.5 % 03/26/2025 10:27 AM CDT [facility] [employer] [facility] RDW-STDEV 38.3 37.1 - 48.7 fL 03/26/2025 10:27 AM CDT [facility] PLATELETS 287 140 - 350 K/uL 03/26/2025 10:27 AM CDT [facility] MPV 9.7 9.3 - 12.4 fL 03/26/2025 10:27 AM CDT [facility] NEUTROPHILS 84 % 03/26/2025 10:27 AM CDT [facility] LYMPHOCYTES 10 % 03/26/2025 10:27 AM CDT [facility] MONOCYTES 6 % 03/26/2025 10:27 AM CDT [facility] EOSINOPHILS 0 % 03/26/2025 10:27 AM CDT [facility] BASOPHILS 0 % 03/26/2025 10:27 AM CDT [facility] IMMATURE GRANULOCYTES 0 % 03/26/2025 10:27 AM CDT [facility] NEUTROPHIL ABSOLUTE 10.45(H) 1.90 - 7.00 K/uL 03/26/2025 10:27 AM CDT [facility] LYMPHOCYTE ABSOLUTE 1.20 0.70 - 4.50 K/uL 03/26/2025 10:27 AM CDT [facility] MONOCYTE ABSOLUTE 0.68 0.10 - 1.30 K/uL 03/26/2025 10:27 AM CDT [facility] EOSINOPHIL ABSOLUTE 0.03 0.00 - 0.70 K/uL 03/26/2025 10:27 AM CDT [facility] BASOPHILS ABSOLUTE 0.02 0.00 - 0.20 K/uL 03/26/2025 10:27 AM CDT [facility] IMMATURE GRANULOCYTES ABSOLUTE 0.05(H) 0.00 - 0.03 K/uL 03/26/2025 10:27 AM CDT [facility] Blood Venipuncture / Unknown 03/26/2025 10:03 AM CDT 03/26/2025 10:25 AM CDT Luis Armando Mejia MD HEMATOLOGY ORDERABLES Final Result [facility] CLIA# [id number] [place] [address] * TROPONIN BASELINE, 5TH GEN (03/26/2025 10:03 AM CDT) TROPONIN T, BASELINE 5TH GEN <6 <=10 ng/L 03/26/2025 11:35 AM CDT [facility] [employer] [facility] Blood Venipuncture / Unknown 03/26/2025 10:03 AM CDT 03/26/2025 10:19 AM CDT Narrative [facility] - 03/26/2025 11:35 AM CDT Troponin Undetectable us Luis Armando Mejia MD CHEMISTRY ORDERABLES F inal Result [facility] CLIA# [id number] [address] [place] [address] * EKG 12-LEAD (03/26/2025 9:53 AM CDT) 03/26/2025 9:53 AM CDT Narrative INTERFACE SYSTEM - 03/26/2025 11:38 [place] [address] Test Date: 2025-03-26 Pat Name: MERCED TREJO Department: 92 Room: Gender: Female Process Checker: CC : 1955 Requested By: Order Number: [id number] Reading MD: Isaiah Snow Measurements Intervals [place] Rate: 91 P: -19 MI: 116 QRS: -15 QRSD: 74 T: -9 QT: 346 QTc: 425 Interpretive Statements Normal sinus rhythm Inferior infarct, age undetermined Cannot rule out Anterior infarct, age undetermined Nonspecific ST changes Abnormal ECG No previous ECG available for comparison Electronically Signed On 03-26-2025 11:38:03 CDT by Isaiah Snow Procedure Note Isaiah Snow MD - 03/26/2025 [place] [address] Test Date: 2025-03-26 Pat Name: MERCED TREJO Department: 92 Room: Gender: Female Process Checker: CC : 1955 Requested By: Order Number: [id number] Reading : Isaiah Snow Measurements Intervals [place] Rate: 91 P: -19 MI: 116 QRS: -15 QRSD: 74 T: -9 QT: 346 QTc: 425 Interpretive Statements Normal sinus rhythm Inferior infarct, age undetermined Cannot rule out Anterior infarct, age undetermined Nonspecific ST changes Abnormal ECG No previous ECG available for comparison Electronically Signed On 03-26-2025 11:38:03 CDT by Isaiah Snow Luis Armando Mejia MD ECG ORDERABLES Final Result INTERFACE SYSTEM Refer to clinic/hospital department documented in this encounter Visit Diagnoses Diagnosis Enteritis- Primary Other and unspecified noninfectious gastroenteritis and colitis documented in this encounter Administered Medications Inactive Administered Medications - up to 3 most recent administrations Medication Order MAR Action Action Date Dose Rate Site dextrose 5 % in water 250 mL flush bag 25 mL 25 mL, IV, SEE ADMIN INSTRUCTIONS, Starting on Wed03/26/25 at 0950, Until Wed03/26/25 at 2214, Routine iopamidoL (ISOVUE-370) 76% injection (drawn from multi-use bulk pack) 80 mL 80 mL, IV, INTRA-PROCEDURE ONCE, 1 dose, Starting on Wed03/26/25 at 1734, Until Wed03/26/25 at 1735, Routine Contrast Given 03/26/2025 5:35 PM CDT 80 mL sodium chloride 0.9 % flush bag 25 mL 25 mL, IV, SEE ADMIN INSTRUCTIONS, Starting on Wed03/26/25 at 0950, Until Wed03/26/25 at 2214, Routine sodium chloride flush injection 10 mL 10 mL, IV, EVERY 12 HOURS (BlD), First dose on Wed03/26/25 at 1000, Until Discontinued, Routine sodium chloride flush injection 10 mL 10 mL, IV, SEE ADMIN INSTRUCTIONS, Starting on Wed03/26/25 at 0950, Until Wed03/26/25 at 221, Routine documented in this encounter Active and Recently Administered Medications Times are shown in CDT. Scheduled Medication Order 03/24/2025 03/25/2025 03/26/2025 aspirin (ROSI CHEWABLE) chewable tablet 324 mg 324 mg, Oral, ONE TIME ONLY, 1 dose, On Wed03/26/25 at 1000, Routine 1000 (Canceled Entry - Provider: Shelton Borja RN) dextrose 5 % in water 250 mL flush bag 25 mL 25 mL, IV, SEE ADMIN INSTRUCTIONS, Starting on Wed03/26/25 at 0950, Until Wed03/26/25 at 2214, Routine iopamidoL (ISOVUE-370) 76% injection (drawn from multi-use bulk pack) 80 mL (COMPLETED) 80 mL, IV, INTRA-PROCEDURE ONCE, 1 dose, Starting on Wed03/26/25 at 1734, Until Wed03/26/25 at 1735, Routine 1735 (Contrast Given - Provider: Joslyn Mcdonald, RT) lactated ringers bolus solution 1,000 mL 1,000 mL, IV, ONE TIME ONLY, 1 dose, On Wed03/26/25 at 1445, at 2,000 mL/hr, Administer over 30 Minutes, Routine 1445 (Canceled Entry - Provider: Shelton Borja, [place]) sodium chloride 0.9 % flush bag 25 mL 25 mL, IV, SEE ADMIN INSTRUCTIONS, Starting on Wed03/26/25 at 0950, Until Wed03/26/25 at 2214, Routine sodium chloride flush injection 10 mL 10 mL, IV, EVERY 12 HOURS (BlD), First dose on Wed03/26/25 at 1000, Until Discontinued, Routine 1000 (Canceled Entry - Provider: Shelton Borja, [place])2100 (Canceled Entry - Provider: Shelton Borja, [place]) sodium chloride flush injection 10 mL 10 mL, IV, SEE ADMIN INSTRUCTIONS, Starting on Wed03/26/25 at 0950, Until Wed03/26/25 at 2214, Routine documented in this encounter Additional Health Concerns Infection Onset Date Last Indicated Resolved Time R/O GI Pathogen 03/26/2025 03/26/2025 03/26/2025 9 :36 PM CDT documented as of this encounter
--- OUTSIDE RECORDS SUMMARY | 2025-03-27 12:08 | XMS_ITS | Encounter Summary ---
[facility] Organization [email or web address] Address [address] [facility] Attn: Epic Prelude ADT LEOLA DSOUZA [id number] Care Team Providers Care [employer] Teacher Name Role Phone Unavailable Primary Care Provider Unavailabl e Encounter Details Date Type Department Care Team (Latest Contact Info) Description 03/26/2025 Travel Social History Tobacco Use Types Packs/Day Years Used Date Smoking Tobacco: Never Smokeless Tobacco: Never Alcohol Use Standard Drinks/Week Comments Yes 30 (1 standard drink = 0.6 oz pu re alcohol) Comments Unknown Sex and Gender Information Value Date Recorded Sex Assigned at Not on file Legal Sex Female 9:38 AM CDT Gender Identity Not on file Sexual Orientation Not on file documented as of this encounter Plan of Treatment Not on file documented as of this encounter Visit Diagnoses Not on filedocumented in this encounter Additional Health Concerns Infection Onset Date Last Indicated Resolved Time R/O GI Pathogen 03/26/2025 03/26/2025 03/26/2025 9 :36 PM CDT documented as of this encounter
--- OUTSIDE RECORDS SUMMARY | 2025-03-27 12:08 | XMS_ITS | Clinical Summary ---
Author Organization [facility] Address [address] [place] [address] Care Team Providers Care Fleet Maintenance Manager Name Role Phone Thong Landaverde MD Primary Care Provider [phone]- [phone] Social History Tobacco Use Types Packs/Day Years [...] 1 - Tdap) 1972 Mammogram Screening 1993 Pneumococcal Vaccine: 50+ Ye ars (1 of 1 - PCV) 2003 Zoster Vaccines (1 of 2) 2003 Dexa Scan (General) 2018 COVID-19 Vaccine ( - 2023-2 5 season) 2024 RSV Immunization or 60+ Years (1 [...] age to complete this topic Care Teams Fleet Maintenance Manager Relationship Specialty Start Date End Date Thong Landaverde MD [address] [place] [id number] PCP - General 06/09/10
[2025-03-27 12:37] LABS: Hemoglobin A1C 5.0 % (<5.7)
[2025-03-27 12:58] LABS: Alanine Aminotransferase 23 U/L (6-35); Albumin Level 4.1 g/dL (3.5-5.1); Alkaline Phosphatase 54 U/L (38-126); Anion Gap 9 mmol/L (4-12); Aspartate Amino Transferase 30 U/L (14-36); Bilirubin,Total 1.9 mg/dL (0.2-1.3); Blood Urea Nitrogen 16 mg/dL (7-17); Calcium 9.3 mg/dL (8.4-10.2); Carbon Dioxide 26 mmol/L (22-30); Chloride 100 mmol/L (98-107); Cholesterol 151 mg/dL (0-200); Estimated Glomerular Filt Rate > 60; Glucose 105 mg/dL (65-110); HDL Direct 52 mg/dL; Potassium 3.1 mmol/L (3.4-5.0); Sodium 135 mmol/L (137-145); Total Protein 7.1 g/dL (6.3-8.2); Triglycerides 102 mg/dL (<150)
== END 2025-03-27 12:03 | disposition home or self-care (01) ==
PROVIDERS: PCP Family Medicine Adolescent Medicine; Visit Provider Family Medicine
DX: R07.9 Chest pain, unspecified (principal); Z13.1 Encounter for screening for diabetes mellitus
CPT/HCPCS: 36415; 80053; 80061; 83036

== ENCOUNTER 2025-04-05 12:58 | Outpatient (CLI) | payer MEDICARE, SELFPAY ==
--- OUTSIDE RECORDS SUMMARY | 2025-04-05 13:05 | XMS_ITS | Clinical Summary ---
Author Organization [facility] Address [address] [place] [address] Care Team Providers Care Pump Servicer Helper Name Role Phone Thong Landaverde MD Primary Care Provider +1- [phone] Social History Tobacco Use Types Packs/Day Years [...] age to complete this topic Care Teams Pump Servicer Helper Relationship Specialty Start Date End Date Thong Landaverde MD [address] [place] [id number] PCP - General 06/09/10
--- OUTSIDE RECORDS SUMMARY | 2025-04-05 13:05 | XMS_ITS | Clinical Summary ---
Author Organization [facility] Address [address] [place] [address] Phone Care Team Providers Care [employer] Analyst Name Role Phone Unavailable Primary Care Provider [...] Encounters Date Type Department Care Team Description 03/27/2025 External Device Data ST[facility] ABSTRACTION Provider, Abstract 03/27/2025 External Device Data [facility] ABSTRACTION Provider, Abstract 03/27/2025 External Device Data [facility] ABSTRACTION Provider, Abstract 03/26/2025 2:19 PM CDT - 03/26/2025 8:14 PM CDT Emergency [facility] Emergency Department [address] [place] [address] Luis Armando Mejia MD Enteritis [...] (1 of 2) 2003 OSTEOPOROSIS SCREENING 2018 INFLUENZA VACCINE (#1) 2025 RSV VACCINE (60+ [...] PATHOGEN PCR PANEL (03/26/2025 8:03 PM CDT) [facility] GI Pathogen PCR panel NOT DETECTED No nucleic acids detected. 03/26/2025 9:36 PM CDT [facility] Stool STOOL SPECIMEN / Unknown Collection / Unknown 03/26/2025 8:03 PM CDT 03/26/2025 8:06 PM CDT [facility] - 03/26/2025 9:36 PM CDT The Film [...] MD MICROBIOLOGY - GENERAL ORDERABLES Final Result [facility] [id number] [id number] [place] [address] * CT ABDOMEN PELVIS W CONTRAST (03/26/2025 [...] esophagus may represent esophagitis. DICTATION LOCATION: Location [address] [place] [address] Narrative 03/26/2025 6:59 PM CDT EXAMINATION: CT ABDOMEN [...] esophagus may represent esophagitis. DICTATION LOCATION: Location [address] [place] [address] ORDERABLES Final Result * EXTRA TUBE (URINE WOODARD) (03/26/2025 5:48 PM CDT) Urine URINE SPECIMEN OBTAINED BY CLEAN CATCH PROCEDURE / Unknown Collection / Unknown 03/26/2025 5:48 PM CDT 03/26/2025 5:58 PM CDT Luis Armando Mejia MD URINE ORDERABLES Final Result [facility] CLIA# [id number] [place] [address] * (ABNORMAL) URINALYSIS WITH REFLEX MICROSCOPIC (03/26/2025 5:48 PM CDT) COLOR UA Yellow Pale to Dark Yellow 03/26/2025 6:19 PM CDT [facility] CLARITY UA Clear Clear 03/26/2025 6:19 PM CDT [facility] SPECIFIC GRAVITY UA >1.035(H) 1.003 - 1.035 03/26/2025 6:19 PM CDT [facility] PH UA 5.0 5.0 - 8.0 03/26/2025 6:19 PM CDT [facility] LEUKOCYTE ESTERASE UA Negative Negative 03/26/2025 6:19 PM CDT [facility] NITRITE UA Negative Negative 03/26/2025 6:19 PM CDT [facility] PROTEIN UA Negative Negative 03/26/2025 6:19 PM CDT [facility] GLUCOSE UA Negative Negative 03/26/2025 6:19 PM CDT [facility] KETONES UA 2+(A) Negative 03/26/2025 6:19 PM CDT [facility] UROBILINOGEN UA Normal <2.0 mg/dL 6:19 PM CDT [facility] BILIRUBIN UA Negative Negative 03/26/2025 6:19 PM CDT [facility] BLOOD UA 2+(A) Negative 03/26/2025 6:19 PM CDT [facility] WBC UA 0-2 0 - 2 /hpf 03/26/2025 6:19 PM CDT [facility] RBC UA 11-25(A) 0 - 2 /hpf 03/26/2025 6:19 PM CDT [facility] BACTERIA UA Negative Negative /hpf 03/26/2025 6:19 PM CDT [facility] EPITHELIAL CELLS, URINE 0-5 0 - 5 /hpf 03/26/2025 6:19 PM CDT [facility] HYALINE CAST None Seen None Seen, 0-2 /lpf 03/26/2025 6:19 PM CDT [facility] Urine URINE SPECIMEN OBTAINED BY CLEAN CATCH PROCEDURE / Unknown Collection / Unknown 03/26/2025 5:48 PM CDT 03/26/2025 5:58 PM CDT Luis Armando Mejia MD URINE ORDERABLES Final Result Performing Organization Address [facility]/ZIP Co de Phone Number [facility]# [id number] [place] [address] * TROPONIN 2 HR, 5TH GEN (03/26/2025 2:14 PM CDT) Pathologist [facility] TROPONIN T, 2 HR 5TH GEN <6 <=10 ng/L 03/26/2025 3:21 PM CDT [facility] Blood Venipuncture / Unknown 03/26/2025 2:14 PM CDT 03/26/2025 2:50 PM CDT Narrative [facility] - 03/26/2025 3:21 PM CDT Troponin Undetectable Delay in collection of timed specimen beyond recommended collection interval. Results must be interpreted in clinical context. Unable to calculate delta. Luis Armando Mejia MD CHEMISTRY ORDERABLES F inal Result [facility]# [id number] [place] [address] * LIPASE (03/26/2025 2:14 PM CDT) Pathologist [facility] LIPASE 19 13 - 60 U/L 03/26/2025 3:21 PM CDT [facility] Blood Venipuncture / Unknown 03/26/2025 2:14 PM CDT 03/26/2025 2:50 PM CDT Luis Armando Mejia MD CHEMISTRY ORDERABLES F inal Result Performing Organization Address City/[facility]/ZIP Co de Phone Number [facility]# [id number] [address] [place] [address] * ETHANOL LEVEL (03/26/2025 2:14 PM CDT) ETHANOL <10.10 No Ref Range Estab mg/dL 03/26/2025 3:21 PM CDT [facility] ETHANOL % <0.01 %w/v 03/26/2025 3:21 PM CDT [facility] Blood Venipuncture / Unknown 03/26/2025 2:14 PM CDT 03/26/2025 2:50 PM CDT Luis Armando Mejia MD CHEMISTRY ORDERABLES F inal Result Performing Organization Address [facility] Co de Phone Number [facility]# [id number] [place] [address] * XR CHEST PA OR AP 1 VW (03/26/2025 12:12 PM CDT) Anatomical Region Laterality Modality Chest Computed Radiogr aphy 03/26/2025 12:1 3 PM CDT Impressions 03/26/2025 12:21 PM CDT FINDINGS/IMPRESSION: The lungs are clear without focal consolidation. There is no pleural effusion. No pneumothorax. The cardiomediastinal silhouette is normal. DICTATION LOCATION: Location [address] [place] [address] Narrative 03/26/2025 12:21 PM CDT EXAMINATION: XR [...] cardiomediastinal silhouette is normal. DICTATION LOCATION: Location [address] [place] [address] Luis Armando Mejia MD DIAGNOSTIC IMAGING ORD ERABLES Final Result * EXTRA TUBE (BLUE) (03/26/2025 10:03 AM CDT) Blood Venipuncture / Unknown 03/26/2025 10:03 AM CDT 03/26/2025 10:16 AM CDT Luis Armando Mejia MD HEMATOLOGY ORDERABLES Final Result Performing Organization Address [facility]/ZIP Co de Phone Number [facility] CLIA# [id number] [place] [address] * TROPONIN BASELINE, 5TH GEN (03/26/2025 10:03 AM CDT) TROPONIN T, BASELINE 5TH GEN <6 <=10 ng/L 03/26/2025 11:35 AM CDT [facility] Blood Venipuncture / Unknown 03/26/2025 10:03 AM CDT 03/26/2025 10:19 AM CDT Narrative [facility] - 03/26/2025 11:35 AM CDT Troponin Undetectable Luis Armando Mejia MD CHEMISTRY ORDERABLES F inal Result Performing Organization Address City/[facility]/ZIP Co de Phone Number [id number] [place] [address] * (ABNORMAL) CBC WITH DIFFERENTIAL (03/26/2025 10:03 AM CDT) [facility] WBC 12.4(H) 4.0 - 9.8 K/uL 03/26/2025 10:27 AM CDT [facility] RBC 5.33(H) 3.90 - 4.90 M/uL 03/26/2025 10:27 AM CDT [facility] HEMOGLOBIN 17.3(H) 11.8 - 14.8 g/dL 03/26/2025 10:27 AM CDT [facility] HEMATOCRIT 46.7(H) 35.5 - 44.0 % 03/26/2025 10:27 AM CDT [facility] MCV 87.6 82.0 - 99.0 fL 03/26/2025 10:27 AM CDT [facility] MCH 32.5 27.2 - 32.6 pg 03/26/2025 10:27 AM CDT [facility] MCHC 37.0(H) 31.5 - 35.5 g/dL 03/26/2025 10:27 AM CDT [facility] RDW 11.9 11.5 - 14.5 % 03/26/2025 10:27 AM CDT [facility] RDW-STDEV 38.3 37.1 - 48.7 fL 03/26/2025 10:27 AM CDT [facility] PLATELETS 287 140 - 350 K/uL 03/26/2025 10:27 AM CDT [facility] MPV 9.7 9.3 - 12.4 fL 03/26/2025 10:27 AM CDT [facility] SERVICES [facility] NEUTROPHILS 84 % 03/26/2025 10:27 AM CDT [facility] LYMPHOCYTES 10 % 03/26/2025 10:27 AM CDT [facility] MONOCYTES 6 % 03/26/2025 10:27 AM CDT [facility] EOSINOPHILS 0 % 03/26/2025 10:27 AM CDT [facility] BASOPHILS 0 % 03/26/2025 10:27 AM CDT [facility] IMMATURE GRANULOCYTES 0 % 03/26/2025 10:27 AM CDT [facility] NEUTROPHIL ABSOLUTE 10.45(H) 1.90 - 7.00 K/uL 03/26/2025 10:27 AM CDT [facility] LYMPHOCYTE ABSOLUTE 1.20 0.70 - 4.50 K/uL 03/26/2025 10:27 AM CDT [facility] MONOCYTE ABSOLUTE 0.68 0.10 - 1.30 K/uL 03/26/2025 10:27 AM CDT [facility] SERVICES [facility] EOSINOPHIL ABSOLUTE 0.03 0.00 - 0.70 K/uL 03/26/2025 10:27 AM CDT [facility] BASOPHILS ABSOLUTE 0.02 0.00 - 0.20 K/uL 03/26/2025 10:27 AM CDT [facility] IMMATURE GRANULOCYTES ABSOLUTE 0.05(H) 0.00 - 0.03 K/uL 03/26/2025 10:27 AM CDT [facility] Blood Venipuncture / Unknown 03/26/2025 10:03 AM CDT 03/26/2025 10:25 AM CDT Luis Armando Mejia MD HEMATOLOGY ORDERABLES Final Result [facility] CLIA# [id number] [place] [address] * (ABNORMAL) COMPREHENSIVE METABOLIC PANEL (03/26/2025 10:03 AM CDT) SODIUM 135(L) 136 - 145 mmol/L 03/26/2025 11:35 AM CDT [facility] POTASSIUM 3.7 3.4 - 5.1 mmol/L 03/26/2025 11:35 AM CDT [facility] CHLORIDE 97(L) 98 - 107 mmol/L 03/26/2025 11:35 AM [facility] CO2 20(L) 22 - 29 mmol/L 03/26/2025 11:35 AM [facility] CALCIUM 10.0 8.6 - 10.4 mg/dL 03/26/2025 11:35 AM [facility] BUN 17 6 - 20 mg/dL 03/26/2025 11:35 AM [facility] CREATININE 0.64 0.51 - 0.95 mg/dL 03/26/2025 11:35 AM [facility] Comment:The GFR result is no t clinically significant on patients <18 or >70 years of age. GLUCOSE 141(H) 74 - 99 mg/dL 03/26/2025 11:35 AM [facility] TOTAL PROTEIN 7.4 6.3 - 8.7 g/dL 03/26/2025 11:35 AM [facility] ALBUMIN 4.4 3.5 - 5.2 g/dL 03/26/2025 11:35 AM [facility] BILIRUBIN TOTAL 2.8(H) 0.0 - 1.1 mg/dL 03/26/2025 11:35 AM [facility] ALKALINE PHOSPHATASE 67 40 - 150 U/L 03/26/2025 11:35 AM [facility] AST 22 0 - 33 U/L 03/26/2025 11:35 AM [facility] ALT 19 0 - 33 U/L 03/26/2025 11:35 AM [facility] GFR >60 mL/min/1.7 3 sq meter 03/26/2025 11:35 AM [facility] Comment:eGFR calculated with 2020 CKD-EPI equation. Vegetarian diet, extremely high or low muscle mass, and may affect results. Cystatin C with Glomerular Filtration Rate is a suitable alternative for these patients. ANION GAP 18(H) 8 - 16 mmol/L 03/26/2025 11:35 AM [facility] Blood Venipuncture / Unknown 03/26/2025 10:03 AM CDT 03/26/2025 10:19 AM CDT Luis Armando Mejia MD CHEMISTRY ORDERABLES F inal Result [facility]# [id number] [address] [place] [address] * EKG 12-LEAD (03/26/2025 9:53 AM CDT) 03/26/2025 9:53 AM CDT Narrative INTERFACE SYSTEM - 03/26/2025 11:38 [place] [address] Test Date: 2025-03-26 Pat Name: KIARA RODRIGUEZ Department: 92 Room: Gender: Female Quality Assurance Assessor: CC : 1955 Requested By: Order Number: [id number] Reading MD: Isaiah Snow Measurements Intervals [place] Rate: 91 P: -19 CO: 116 QRS: -15 QRSD: 74 T: -9 QT: 346 QTc: 425 Interpretive Statements Normal sinus rhythm Inferior infarct, age undetermined Cannot rule out Anterior infarct, age undetermined Nonspecific ST changes Abnormal ECG No previous ECG available for comparison Electronically Signed On 03-26-2025 11:38:03 CDT by Isaiah Snow Procedure Note Isaiah Snow MD - 03/26/2025 [place] [address] Test Date: 2025-03-26 Pat Name: KIARA RODRIGUEZ Department: 92 Room: Gender: Female Quality Assurance Assessor: CC : 1955 Requested By: Order Number: [id number] Reading MD: Isaiah Snow Measurements Intervals [place] Rate: 91 P: -19 CO: 116 QRS: -15 QRSD: 74 T: -9 [...] clinic/hospital department from Last 3 Months Insurance [facility] [id number] RX [employer] Member Subscriber Plan / Payer (Ef fective 2018-Present) Name:Kiara Rodriguez Relation to Subscriber:Self Name:Kiara Rodriguez Payer ID:Not on file Group ID:[id number] Type:RX Medicare Part D Address: [address] [employer] [place] [employer] (INTERNAL) [facility] [employer]
[2025-04-05 13:29] LABS: Alanine Aminotransferase 22 U/L (6-35); Albumin Level 3.9 g/dL (3.5-5.1); Alkaline Phosphatase 56 U/L (38-126); Anion Gap 5 mmol/L (4-12); Aspartate Amino Transferase 27 U/L (14-36); Bilirubin,Total 1.0 mg/dL (0.2-1.3); Blood Urea Nitrogen 8 mg/dL (7-17); Calcium 9.0 mg/dL (8.4-10.2); Carbon Dioxide 30 mmol/L (22-30); Chloride 102 mmol/L (98-107); Estimated Glomerular Filt Rate > 60; Glucose 90 mg/dL (65-110); Potassium 4.0 mmol/L (3.4-5.0); Sodium 137 mmol/L (137-145); Total Protein 6.7 g/dL (6.3-8.2)
== END 2025-04-05 12:59 | disposition home or self-care (01) ==
PROVIDERS: PCP Family Medicine Adolescent Medicine; Visit Provider Family Medicine
DX: E87.6 Hypokalemia (principal); R17 Unspecified jaundice
CPT/HCPCS: 36415; 80053

== ENCOUNTER 2025-04-09 07:58 | Outpatient (CLI) | payer MEDICARE, SELFPAY ==
--- NOTE | ~2025-04-09 | NM_ITS ---
EXAMINATION: NM tara stress w perfusion DATE: 04/09/2025 11:48 CDT INDICATION: Chest pain TECHNIQUE: Rest images were obtained following intravenous administration of 10.3 mCi Tc99m tetrofosm in (Myoview). The patient was infused intravenously with Lexiscan (regadenoson). Then, 32.7 mCi Tc99m tetrofosmin (Myoview) was administered intravenously, and stress images were obtained. Data was ben nstructed into short axis and horizontal and vertical long axis SPECT images. Gated SPECT images were also obtained. COMPARISON: No prior studies for comparison. . FINDINGS: There is no definite reversible or fixed perfusion abnormality to suggest ischemia or infar ction. There is no segmental wall motion abnormality. Left ventricular ejection fraction measures 7 5%. IMPRESSION: 1. No definite ischemia or infarct. 2. Normal left ventricular ejection fraction measuring 75%. Reviewed, dictated and finalized at location A.
--- OUTSIDE RECORDS SUMMARY | 2025-04-09 08:01 | XMS_ITS | Clinical Summary ---
Author Organization [facility] Address [address] [place] [address] Phone Care Team Providers Care Cribber Name Role Phone Unavailable Primary Care Provider Unavailabl e Allergies No known active allergies Medications ondansetron (ZOFRAN ODT) 4 mg Tablet, Rapid Dissolve Dissolve 1 Tablet (4 mg) on top of tongue and swallow with saliva every 8 hours as needed for nausea/vomiti ng. 10 Tablet 03/26/2025 8:09 PM CDT Active amoxicillin-cla vulanate (AUGMENTIN) 875-125 mg tablet Take 1 Tablet by mouth every 12 hours for 10 days. Take all doses with food to minimize upset stomach/nause a. 20 Tablet 03/26/2025 8:09 PM CDT 04/05/20 25 Encounters Date Type Department Care Team Description 03/27/2025 External Device Data [facility] ABSTRACTION Provider, Abstract 03/27/2025 External Device Data [facility] ABSTRACTION Provider, Abstract 03/27/2025 External Device Data [facility] ABSTRACTION Provider, Abstract 03/26/2025 2:19 PM CDT - 03/26/2025 8:14 PM CDT Emergency [facility] Emergency Department [address] [place] [address] Luis Armando Mejia MD Enteritis [...] PATHOGEN PCR PANEL (03/26/2025 8:03 PM CDT) [facility] GI Pathogen PCR panel NOT DETECTED No nucleic acids detected. 03/26/2025 9:36 PM CDT [facility] Stool STOOL SPECIMEN / Unknown Collection / Unknown 03/26/2025 8:03 PM CDT 03/26/2025 8:06 PM CDT [facility] - 03/26/2025 9:36 PM CDT [...] MD MICROBIOLOGY - GENERAL ORDERABLES Final Result [id number] [place] [address] * CT ABDOMEN PELVIS W CONTRAST (03/26/2025 [...] esophagus may represent esophagitis. DICTATION LOCATION: Location [address] [place] [address] Narrative 03/26/2025 6:59 PM CDT EXAMINATION: CT [...] esophagus may represent esophagitis. DICTATION LOCATION: Location [address] [place] [address] [address] ORDERABLES Final Result * EXTRA TUBE (URINE WOODARD) (03/26/2025 5:48 PM CDT) Urine URINE SPECIMEN OBTAINED BY CLEAN CATCH PROCEDURE / Unknown Collection / Unknown 03/26/2025 5:48 PM CDT 03/26/2025 5:58 PM CDT Luis Armando Mejia MD URINE ORDERABLES Final Result [facility] CLIA# [id number] [place] [address] * (ABNORMAL) URINALYSIS WITH REFLEX MICROSCOPIC (03/26/2025 5:48 PM CDT) COLOR UA Yellow Pale to Dark Yellow 03/26/2025 6:19 PM CDT [facility] CLARITY UA Clear Clear 03/26/2025 6:19 PM CDT [facility] SPECIFIC GRAVITY UA >1.035(H) 1.003 - 1.035 03/26/2025 6:19 PM CDT [facility] PH UA 5.0 5.0 - 8.0 03/26/2025 6:19 PM CDT [facility] LEUKOCYTE ESTERASE UA Negative Negative 03/26/2025 6:19 PM CDT [facility] NITRITE UA Negative Negative 03/26/2025 6:19 PM CDT [facility] PROTEIN UA Negative Negative 03/26/2025 6:19 PM CDT [facility] GLUCOSE UA Negative Negative 03/26/2025 6:19 PM CDT [facility] KETONES UA 2+(A) Negative 03/26/2025 6:19 PM CDT [facility] UROBILINOGEN UA Normal <2.0 mg/dL 6:19 PM CDT [facility] BILIRUBIN UA Negative Negative 03/26/2025 6:19 PM CDT [facility] BLOOD UA 2+(A) Negative 03/26/2025 6:19 PM CDT [facility] WBC UA 0-2 0 - 2 /hpf 03/26/2025 6:19 PM CDT [facility] RBC UA 11-25(A) 0 - 2 /hpf 03/26/2025 6:19 PM CDT [facility] BACTERIA UA Negative Negative /hpf 03/26/2025 6:19 PM CDT [facility] EPITHELIAL CELLS, URINE 0-5 0 - 5 /hpf 03/26/2025 6:19 PM CDT [facility] HYALINE CAST None Seen None Seen, 0-2 /lpf 03/26/2025 6:19 PM CDT [facility] Urine URINE SPECIMEN OBTAINED BY CLEAN CATCH PROCEDURE / Unknown Collection / Unknown 03/26/2025 5:48 PM CDT 03/26/2025 5:58 PM CDT Luis Armando Mejia MD URINE ORDERABLES Final Result Performing Organization Address [facility]/ZIP Co de Phone Number [facility]# [id number] [place] [address] * TROPONIN 2 HR, 5TH GEN (03/26/2025 2:14 PM CDT) Pathologist [facility] TROPONIN T, 2 HR 5TH GEN <6 <=10 ng/L 03/26/2025 3:21 PM CDT [facility] Blood Venipuncture / Unknown 03/26/2025 2:14 PM CDT 03/26/2025 2:50 PM CDT Narrative [facility] - 03/26/2025 3:21 PM CDT Troponin Undetectable Delay in collection of timed specimen beyond recommended collection interval. Results must be interpreted in clinical context. Unable to calculate delta. Luis Armando Mejia MD CHEMISTRY ORDERABLES F inal Result [facility] CLIA# [id number] [id number] [place] [address] * LIPASE (03/26/2025 2:14 PM CDT) Pathologist [facility] LIPASE 19 13 - 60 U/L 03/26/2025 3:21 PM CDT [facility] Blood Venipuncture / Unknown 03/26/2025 2:14 PM CDT 03/26/2025 2:50 PM CDT Luis Armando Mejia MD CHEMISTRY ORDERABLES F inal Result Performing Organization Address [facility]/ZIP Co de Phone Number [facility]# [id number] [place] [address] * ETHANOL LEVEL (03/26/2025 2:14 PM CDT) ETHANOL <10.10 No Ref Range Estab mg/dL 03/26/2025 3:21 PM CDT [facility] ETHANOL % <0.01 %w/v 03/26/2025 3:21 PM CDT [facility] Blood Venipuncture / Unknown 03/26/2025 2:14 PM CDT 03/26/2025 2:50 PM CDT Luis Armando Mejia MD CHEMISTRY ORDERABLES F inal Result Performing Organization Address [facility] Co de Phone Number [facility]# [id number] [place] [address] * XR CHEST PA OR AP 1 VW (03/26/2025 12:12 PM CDT) Anatomical Region Laterality Modality Chest Computed Radiogr aphy 03/26/2025 12:1 3 PM CDT Impressions 03/26/2025 12:21 PM CDT FINDINGS/IMPRESSION: The lungs are clear without focal consolidation. There is no pleural effusion. No pneumothorax. The cardiomediastinal silhouette is normal. DICTATION LOCATION: Location [address] [place] [address] Narrative 03/26/2025 12:21 PM CDT EXAMINATION: XR [...] cardiomediastinal silhouette is normal. DICTATION LOCATION: Location [address] [place] [address] Luis Armando Mejia MD DIAGNOSTIC IMAGING ORD ERABLES Final Result * EXTRA TUBE (BLUE) (03/26/2025 10:03 AM CDT) Blood Venipuncture / Unknown 03/26/2025 10:03 AM CDT 03/26/2025 10:16 AM CDT Luis Armando Mejia MD HEMATOLOGY ORDERABLES Final Result Performing Organization Address City/[facility]/ZIP Co de Phone Number [facility] CLIA# [id number] [place] [address] * TROPONIN BASELINE, 5TH GEN (03/26/2025 10:03 AM CDT) TROPONIN T, BASELINE 5TH GEN <6 <=10 ng/L 03/26/2025 11:35 AM CDT [facility] Blood Venipuncture / Unknown 03/26/2025 10:03 AM CDT 03/26/2025 10:19 AM CDT Narrative [facility] - 03/26/2025 11:35 AM CDT Troponin Undetectable Luis Armando Mejia MD CHEMISTRY ORDERABLES F inal Result Performing Organization Address City/[facility]/ZIP Co de Phone Number [facility] [employer] [facility] CLIA# [id number] [place] [address] * (ABNORMAL) CBC WITH DIFFERENTIAL (03/26/2025 10:03 AM CDT) [facility] WBC 12.4(H) 4.0 - 9.8 K/uL 03/26/2025 10:27 AM CDT [facility] RBC 5.33(H) 3.90 - 4.90 M/uL 03/26/2025 10:27 AM CDT [facility] HEMOGLOBIN 17.3(H) 11.8 - 14.8 g/dL 03/26/2025 10:27 AM CDT [facility] HEMATOCRIT 46.7(H) 35.5 - 44.0 % 03/26/2025 10:27 AM CDT [facility] MCV 87.6 82.0 - 99.0 fL 03/26/2025 10:27 AM CDT [facility] MCH 32.5 27.2 - 32.6 pg 03/26/2025 10:27 AM CDT [facility] MCHC 37.0(H) 31.5 - 35.5 g/dL 03/26/2025 10:27 AM CDT [facility] RDW 11.9 11.5 - 14.5 % 03/26/2025 10:27 AM CDT [facility] RDW-STDEV 38.3 37.1 - 48.7 fL 03/26/2025 10:27 AM CDT [facility] PLATELETS 287 140 - 350 K/uL 03/26/2025 10:27 AM CDT [facility] MPV 9.7 9.3 - 12.4 fL 03/26/2025 10:27 AM CDT [facility] NEUTROPHILS 84 % 03/26/2025 10:27 AM CDT [facility] LYMPHOCYTES 10 % 03/26/2025 10:27 AM CDT [facility] LABORATORY SERVICES [facility] MONOCYTES 6 % 03/26/2025 10:27 AM CDT [facility] EOSINOPHILS 0 % 03/26/2025 10:27 AM CDT [facility] BASOPHILS 0 % 03/26/2025 10:27 AM CDT [facility] IMMATURE GRANULOCYTES 0 % 03/26/2025 10:27 AM CDT [facility] NEUTROPHIL ABSOLUTE 10.45(H) 1.90 - 7.00 K/uL 03/26/2025 10:27 AM CDT [facility] LYMPHOCYTE ABSOLUTE 1.20 0.70 - 4.50 K/uL 03/26/2025 10:27 AM CDT [facility] MONOCYTE ABSOLUTE 0.68 0.10 - 1.30 K/uL 03/26/2025 10:27 AM CDT [facility] EOSINOPHIL ABSOLUTE 0.03 0.00 - 0.70 K/uL 03/26/2025 10:27 AM CDT [facility] BASOPHILS ABSOLUTE 0.02 0.00 - 0.20 K/uL 03/26/2025 10:27 AM CDT [facility] IMMATURE GRANULOCYTES ABSOLUTE 0.05(H) 0.00 - 0.03 K/uL 03/26/2025 10:27 AM CDT [facility] Blood Venipuncture / Unknown 03/26/2025 10:03 AM CDT 03/26/2025 10:25 AM CDT Luis Armando Mejia MD HEMATOLOGY ORDERABLES Final Result [facility] CLIA# [id number] [place] [address] * (ABNORMAL) COMPREHENSIVE METABOLIC PANEL (03/26/2025 10:03 AM CDT) SODIUM 135(L) 136 - 145 mmol/L 03/26/2025 11:35 AM CDT [facility] POTASSIUM 3.7 3.4 - 5.1 mmol/L 03/26/2025 11:35 AM CDT [facility] CHLORIDE 97(L) 98 - 107 mmol/L 03/26/2025 11:35 AM [facility] CO2 20(L) 22 - 29 mmol/L 03/26/2025 [...] Mejia MD CHEMISTRY ORDERABLES F inal Result [facility] SERVICES [facility]# [id number] [address] [place] [address] * EKG 12-LEAD (03/26/2025 9:53 AM CDT) 03/26/2025 9:53 AM CDT Narrative INTERFACE SYSTEM - 03/26/2025 11:38 [place] [address] Test Date: 2025-03-26 Pat Name: KIARA RODRIGUEZ Department: 92 Room: Gender: Female Supply Aide: CC : 1955 Requested By: Order Number: [id number] Reading MD: Isaiah Snow Measurements Intervals [place] Rate: 91 P: -19 AK: 116 QRS: -15 QRSD: 74 T: -9 QT: 346 QTc: 425 Interpretive Statements Normal sinus rhythm Inferior infarct, age undetermined Cannot rule out Anterior infarct, age undetermined Nonspecific ST changes Abnormal ECG No previous ECG available for comparison Electronically Signed On 03-26-2025 11:38:03 CDT by Isaiah Snow Procedure Note Isaiah Snow MD - 03/26/2025 [place] [address] Test Date: 2025-03-26 Pat Name: KIARA RODRIGUEZ Department: 92 Room: Gender: Female Supply Aide: CC : 1955 Requested By: Order Number: [id number] Reading MD: Isaiah Snow Measurements Intervals [place] Rate: 91 P: -19 AK: 116 QRS: -15 QRSD: 74 T: -9 [...] clinic/hospital department from Last 3 Months Insurance [facility] [id number] RX [employer] RX Member Subscriber Plan / Payer (Ef fective 2018-Present) Name:Kiara Rodriguez Relation to Subscriber:Self Name:Kiara Rodriguez Payer ID:Not on file Group ID:[id number] Type:RX Medicare Part D Address: [address] RX [employer] (INTERNAL) [facility]
--- OUTSIDE RECORDS SUMMARY | 2025-04-09 08:01 | XMS_ITS | Clinical Summary ---
Author Organization [facility] Address [address] [place] [address] Care Team Providers Care Music Executive Name Role Phone Thong Landaverde MD Primary Care Provider +1- [phone] Social History Tobacco Use Types Packs/Day Years [...] age to complete this topic Care Teams Music Executive Relationship Specialty Start Date End Date Thong Landaverde MD [address] [place] [address] PCP - General 06/09/10
--- NOTE | 2025-04-09 08:36 | EST_ITS ---
Patient Info Name: Merced Rodriguez Age: 69 years : 1955 Gender: Female Ht: 66 in Wt: 170 lbs BSA: 1.91 m2 HR: 57 bpm BP: 136 / 86 mmHg Exam Date: 04/09/2025 8:36 AM Patient Status: O Admit Date: 04/09/2025 Exam Type: CA stress tara w NM A regadenoson stress test was performed. Staff Referring Physician: Marley Razo Attending Provider: Marley Razo Exercise Technologist: Margaret Moore Exercise Physician: Donavon Null DO Summary 1. 1. Negative lexiscan stress test for ischemic ST changes by ECG criteria. 2. 2. Stable hemodynamics throughout the test. 3. 3. Nuclear scan to follow and will be reported separately. Please correlate with it. 4. 4. Patient informed of the above results. Protocol: Lexiscan Stress ECG Details Stage: REST Duration (min): 1 min : 7 sec HR (bpm): 57 SBP (mmHg): 136 DBP (mmHg): 86 Stage: REST Duration (min): 7 min : 46 sec HR (bpm): 65 SBP (mmHg): 136 DBP (mmHg): 86 Stage: STAGE 1 Duration (min): 1 min : 0 sec HR (bpm): 76 SBP (mmHg): 136 DBP (mmHg): 78 Stage: RECOVERY Duration (min): 1 min : 0 sec HR (bpm): 93 SBP (mmHg): 136 DBP (mmHg): 78 Stage: RECOVERY Duration (min): 2 min : 0 sec HR (bpm): 87 SBP (mmHg): 136 DBP (mmHg): 78 Stage: RECOVERY Duration (min): 3 min : 0 sec HR (bpm): 87 SBP (mmHg): 119 DBP (mmHg): 75 Stage: RECOVERY Duration (min): 3 min : 12 sec HR (bpm): 84 SBP (mmHg): 119 DBP (mmHg): 75 Rest HR: 65 bpm Peak HR: 93 bpm Rest Sys BP: 136 mmHg Peak Sys BP: 136 mmHg Max Pred HR: 149 bpm % Max Pred HR: 62 % Target HR: 127 bpm Max RPP: 12,648 bpm*mmHg Termination Reason: Completed protocol Cardiac Symptoms: Shortness of breath Total Time: 1 min : 0 sec Rest Bernard BP: 86 mmHg Peak Bernard BP: 78 mmHg Total Dose: 0.4 mg Resting ECG SINUS RHYTHM. Stress ECG No ST changes. Arrhythmias None. Report Signatures
== END 2025-04-09 07:59 | disposition home or self-care (01) ==
PROVIDERS: PCP Family Medicine Adolescent Medicine; Visit Provider Family Medicine
DX: R07.9 Chest pain, unspecified (principal)
CPT/HCPCS: 78452; 93017; A9502; J2785

== ENCOUNTER 2025-07-12 16:42 | Inpatient (IN) | payer MEDICARE, SELFPAY ==
[2025-07-12] VITALS (39 sets, daily range): BP systolic 90–145; BP diastolic 66–111; PULSE 92–182; RESP 16–36; TEMP 36.8–36.9; O2SAT 92–100; BMI 29.0
--- NOTE | ~2025-07-12 | XR_ITS ---
XR chest 1V portable INDICATION:sob . REFERENCE: 04/15/2022 FINDINGS: A single AP of the chest demonstrates enlarged heart. Perihilar and bilateral lower lobe airspace opacities with bilateral pleural effusions are noted. No pneumothorax. IMPRESSION: Cardiomegaly with pulmonary edema suggestive of congestive heart failure. Reviewed, dictated and finalized at location S. AURANT CASHIER
--- NOTE | ~2025-07-12 | CT_ITS ---
CTA chest PE protocol HISTORY:AFib, elevated dimer . COMPARISON: None. TECHNIQUE: Following the noncontrasted electrical controls technician, axial images of the thorax were obtained following infusion of 100 cc of Isovue 370. Post-processing on an independent workstation was performed to reconstruct MIP images for evaluation of the thoracic vasculature. FINDINGS: There is no pulmonary embolism, aortic dissection, or pericardial fluid. Aneurysmal dilatation of the ascending aorta measuring 4 cm.Heart is enlarged. Moderate right pleural effusion and small left pleural effusion is noted. There is groundglass opacities bilaterally. There is left lower lobe consolidation may represent atelectasis. No pneumothorax. There is no axillary, mediastinal or hilar adenopathy. Limited evaluation of the upper abdomen demonstrates no gross abnormalities. Review of bone windows demonstrates no osteoblastic or lytic lesions. IMPRESSION: There is no pulmonary embolism, aortic dissection, pericardial fluid.. Moderate right pleural effusion and small left pleural effusion with groundglass opacity bilaterally suggestive of pulmonary edema. Aneurysmal dilatation of the ascending aorta measuring [address] scans at this facility are performed using low dose modulation techniques as appropriate to perform exam including the following: automated exposure control; use of iterative reconstruction technique; adjustment of the mA and/or kV according to patient size (this includes techniques or standardized protocols for targeted exams where dose is matched to indication/reason for exam). Reviewed, dictated and finalized at location S. PER MACHINE OPERATOR IMPRESSION: There is no pulmonary embolism, aortic dissection, pericardial fluid.. Moderate right pleural effusion and small left pleural effusion with groundglas s opacity bilaterally suggestive of pulmonary edema. Aneurysmal dilatation of the ascending aorta measuring [address] scans at this facility are performed using low dose modulation techniqu es as appropriate to perform exam including the following: automated exposure c ontrol; use of iterative reconstruction technique; adjustment of the mA and/or kV according to patient size (this includes techniques or standardized protocol s for targeted exams where dose is matched to indication/reason for exam).
--- NOTE | 2025-07-12 16:43 | ECG_ITS ---
Test Date: 2025-07-12 17:03:16 Measurements Intervals [place] Rate: 178 P: 0 DE: 0 QRS: 29 QRSD: 83 T: 120 QT: 246 QTc: 423 Interpretive Statements ATRIAL FIBRILLATION WITH RAPID VENTRICULAR RESPONSE LOW QRS VOLTAGE [QRS DEFLECTION < 0.5/1.0 mV IN LIMB/CHEST LEADS] POOR R-WAVE PROGRESSION ABNORMAL ECG No previous ECG available for comparison Electronically Signed On 07-13-2025 13:00:24 FAMILY LAWY[employer] by John Jean M.D.
--- OUTSIDE RECORDS SUMMARY | 2025-07-12 16:44 | XMS_ITS | Clinical Summary ---
Author Organization [facility] Address [address] [place] [address] Phone Care Team Providers Care Safety Person Name Role Phone Unavailable Primary Care Provider Unavailabl e Allergies No known active allergies Medications ondansetron (ZOFRAN ODT) 4 mg Tablet, Rapid Dissolve Dissolve 1 Tablet (4 mg) on top of tongue and swallow with saliva every 8 hours as needed for nausea/vomiti ng. 10 Tablet 03/26/2025 8:09 PM CDT 03/26/2025 Active Encounters Date Type Department Care Team Description 07/03/2025 External Device Data [facility] ABSTRACTION Provider, Abstract 06/26/2025 External Device Data [facility] ABSTRACTION Provider, Abstract 06/26/2025 External Device Data [facility] ABSTRACTION Provider, Abstract 05/22/2025 External Device Data [facility] ABSTRACTION Provider, Abstract 05/22/2025 External Device Data [facility] ABSTRACTION Provider, Abstract 05/22/2025 External Device Data [facility] ABSTRACTION Provider, Abstract 05/15/2025 External Device Data [facility] ABSTRACTION Provider, Abstract 04/25/2025 External Device Data [facility] ABSTRACTION Provider, Abstract 04/24/2025 External Device Data [facility] ABSTRACTION Provider, Abstract 04/24/2025 External Device Data [facility] ABSTRACTION Provider, Abstract from Last 3 Months Social History Tobacco Use Types Packs/Day Years Used Date Smoking Tobacco: Never Smokeless Tobacco: Never Tobacco Cessation:Counseling Given: Not Answered Alcohol Use Standard Drinks/Week Comments Yes 30 (1 standard drink = 0.6 oz pu re alcohol) Feeling Safe Answer Date Recorded Are you in a relationship wi th someone who hurts you emotionally and/or physically? No 03/26/2025 Comments Unknown Sex and Gender Information Value [...] ) (1 - 1-dose 75+ series) 2028 Insurance [facility] [id number] RX [employer] RX Member Subscriber Plan / Payer (Ef fective 2018-Present) Name:Merced Rodriguez Relation to Subscriber:Self Name:Merced Rodriguez Payer ID:Not on file Group ID:[id number] Type:RX Medicare Part D [facility] [place] [employer] (INTERNAL) [facility]
--- OUTSIDE RECORDS SUMMARY | 2025-07-12 16:44 | XMS_ITS | Clinical Summary ---
Author Organization [facility] Address [address] [place] [address] Care Team Providers Care Airplane Electrician Name Role Phone hTong Landaverde MD Primary Care Provider +1- [phone] Social History Tobacco Use Types Packs/Day Years [...] Scan (General) 2018 COVID-19 Vaccine ( - 2024-2 6 season) 2025 Influenza Adult (#1) 2025 RSV Immunization or 60+ Years (1 - 1-dose 75+ series) 2028 Hepatitis A Vaccines Aged Out No long er eligible based on patient's age to complete this topic Meningococcal B Vaccine Aged Out No l onger eligible based on patient's age to complete this topic Meningococcal Vaccine Aged Out No machelle kyle eligible based on patient's age to complete this topic RSV Immunizations Under 20 Months Aged Out No longer eligible based on patient's age to complete this topic Care Teams Airplane Electrician Relationship Specialty Start Date End Date Thong Landaverde MD [address] [address] PCP - General 06/09/10
--- NOTE | 2025-07-12 16:47 | ED.ARRPALP ---
HPI - Arrhythmia/Palpitations General Chief Complaint: Arrhythmia/Palpitations <Sveta Zheng PA-C - Last Filed: 07/21/25 14:55> Stated Complaint: sent by PCP for a fib <Sveta Zheng PA-C - Last Filed: 07/21/25 14:55> Time Seen by Provider: 07/12/25 16:47 <Sveta Zheng PA-C - Last Filed: 07/21/25 14:55> Focused HPI: This is a 69-year-old female that presents to the emergency department for shortness of breath. Ongoing over the last several weeks. Reports she was seen by her PCP today and sent in for further evaluation of AFib with RVR GENERAL: Well-appearing, well-nourished, and in no acute distress. HEAD: Normocephalic, atraumatic. CHEST: Clear to auscultation. ?No respiratory distress. HEART: Irregularly irregular, tachycardic NEURO: ?Alert and oriented x3. Patient screened in triage and initial orders placed.? ?Additional care and disposition to be based upon?diagnostic testing and treatment. <Sveta Zheng PA-C - Last Filed: 07/21/25 14:55> History of Present Illness HPI narrative: I agree with the above HPI <Slim Mata MD - Last Filed: 07/12/25 22:49> Related Data Home Medications: Home Medications ?Medication ?Instructions ?Recorded ?Confirmed ?Last Taken ?Type aspirin 81 mg tablet 81 mg PO DAILY 03/20/25 07/12/25 07/12/25 History omeprazole 20 mg tablet,delayed 20 mg PO DAILY 03/20/25 07/12/25 07/12/25 History release <Sveta Zheng PA-C - Last Filed: 07/21/25 14:55> Allergies/Adverse Reactions: Allergies Allergy/AdvReac Type Severity Reaction Status Date / Time methylprednisolone Allergy Intermediate Hypotension Verified 07/12/25 22:28 <Sveta Zheng PA-C - Last Filed: 07/21/25 14:55> Review of Systems Review of Systems: All systems reviewed & are unremarkable except as noted in HPI and below <Slim Mata MD - Last Filed: 07/12/25 22:49> PMFSH Past Medical History Medical History: Medical History Alcohol use Marijuana use Ascending aortic aneurysm Atrial fibrillation Difficulty swallowing Chest pain Hypertension GERD (gastroesophageal reflux disease) <Sveta Zheng PA-C - Last Filed: 07/21/25 14:55> Surgical History Surgical History: Surgical History History of total knee arthroplasty (2012) Bilateral 2012 History of foot surgery (1988) Bilateral - 1988 History of tubal ligation (1991) H/O endoscopy <Sveta Zheng PA-C - Last Filed: 07/21/25 14:55> Family History Family History: Family History Father Hypertension Lung cancer Mother , Age 51 Ovarian cancer <Sveta Zheng PA-C - Last Filed: 07/21/25 14:55> Social History Social History: Social History Smoking packs per day: 0.5 Smoking cigarettes per day: 10.0 Years smoked: 2 Smoking pack-years: 1.00 Smoking status: Former smoker Tobacco type: cigarettes Alcohol intake: current Drinks per week: 32 Alcohol use details: Beer a couple of nights per week. Substance use: current Substance use type: marijuana Other substance usage details: smokes Do You Feel Safe in your Home?: Yes Lack of Transportation: No Lack of Food: Never True Current Housing: I Have Housing Concerned About Future Housing: No Difficulty Paying Gas/Electric Bills: No Difficulty Paying for Meds: No Currently Unemployed: No Education: High School Diploma/GED Difficulty w/ Childcare or Family Care: No Living arrangements: alone Occupation/Education: occupation Gender identity (if verbalized by the patient): Female Spiritual care concerns: No <Sveta Zheng PA-C - Last Filed: 07/21/25 14:55> Exam Narrative: APPEARANCE: Well appearing, no pain, no distress, well-nourished. HEAD: normocephalic, atraumatic. EYES: PERRLA/EOMI, conjunctivae clear. NOSE: Normal no drainage EARS:TMS clear with good light reflex. THROAT: Pharynx clear, no exudate. NECK: Supple. No adenopathy, no masses. RESPIRATORY: Airway patent, respirations nonlabored. Clear to auscultation bilaterally, no rales, rhonchi, wheezing. CARDIOVASCULAR: AFib with RVR ABDOMINAL: Soft, nontender, nondistended, normal bowel sounds MUSCULOSKELETAL: Moves all extremities. Strength/ROM intact, No edema, No calf tenderness. NEURO: Alert. Cranial nerves II through XII intact. Good gait. Good coordination SKIN: Warm, dry. Normal Color <Slim Mata MD - Last Filed: 07/12/25 22:49> Course Vital Signs Vital signs: Vital Signs Temperature 98.5 F 07/12/25 16:43 Pulse Rate 163 H 07/12/25 16:43 Respiratory Rate 22 H 07/12/25 16:43 Blood Pressure 145/111 H 07/12/25 16:43 Pulse Oximetry 99 07/12/25 16:43 Oxygen Delivery Room Air 07/12/25 16:43 Temperature 98.4 F 07/17/25 13:55 Pulse Rate 72 07/17/25 13:55 Respiratory Rate 20 07/17/25 13:55 Blood Pressure 99/65 L 07/17/25 13:55 Pulse Oximetry 95 07/17/25 13:55 Oxygen Delivery Room Air 07/16/25 20:00 Oxygen Flow Rate 4.0 07/16/25 11:15 <Sveta Zheng PA-C - Last Filed: 07/21/25 14:55> Vital Signs Temperature 98.5 F 07/12/25 16:43 Pulse Rate 163 H 07/12/25 16:43 Respiratory Rate 22 H 07/12/25 16:43 Blood Pressure 145/111 H 07/12/25 16:43 Pulse Oximetry 99 07/12/25 16:43 Oxygen Delivery Room Air 07/12/25 16:43 Temperature 98.4 F 07/17/25 13:55 Pulse Rate 72 07/17/25 13:55 Respiratory Rate 20 07/17/25 13:55 Blood Pressure 99/65 L 07/17/25 13:55 Pulse Oximetry 95 07/17/25 13:55 Oxygen Delivery Room Air 07/16/25 20:00 Oxygen Flow Rate 4.0 07/16/25 11:15 <Slim Mata MD - Last Filed: 07/12/25 22:49> MDM - Arrhythmia/Palpitations [facility] Narrative Medical decision making narrative: 69-year-old female presenting to the emergency department for evaluation for AFib with RVR. Patient's initial heart rate evaluation was AFib with a rate in the 170s. Patient was initially treated with 5 mg of IV Lopressor and this did bring her rate down to the 30s. Patient was then started on a L of lactated Ringer's and Cardizem bolus and infusion. Patient did have some lower extremity edema but this is only +1 pitting. Ultimately patient's chest x-ray did show evidence of pulmonary edema patient's proBNP was significantly elevated. Chest x-ray did show evidence of pulmonary edema. CTA was negative for pulmonary embolism. Patient's blood pressures were stable and IV fluids were held and patient was treated with a dose of IV Lasix. Patient's potassium and magnesium were within normal range. Case was discussed with the hospitalist. Due to the acuity of CHF leading to AFib for AFib leading to CHF hospitalist did request cardiology consult. Cardiology was consulted and they will see the patient. Patient family updated results of the workup and plan for admission. Patient was stable at time of transfer to the floor. Critical Care Procedure Note Authorized and Performed by: Slim Mata Total critical care time: Approximately 36 minutes Due to a high probability of clinically significant, life threatening deterioration, the patient required my highest level of preparedness to intervene emergently and I personally spent this critical care time directly and personally managing the patient. This critical care time included obtaining a history; examining the patient; pulse oximetry; ordering and review of studies; arranging urgent treatment with development of a management plan; evaluation of patient's response to treatment; frequent reassessment; and, discussions with other providers. This critical care time was performed to assess and manage the high probability of imminent, life-threatening deterioration that could result in multi-organ failure. It was exclusive of separately billable procedures and treating other patients and teaching time. Please see MDM section and the rest of the note for further information on patient assessment and treatment. <Sveta Zheng PA-C - Last Filed: 07/21/25 14:55> 69-year-old female presenting to the emergency department for evaluation for AFib with RVR. Patient's initial heart rate evaluation was AFib with a rate in the 70s. Patient was initially treated with 5 mg of IV Lopressor and this did bring her rate down to the 30s. Patient was then started on a L of lactated Ringer's and Cardizem bolus and infusion. Patient did have some lower extremity edema but this is only +1 pitting. Ultimately patient's chest x-ray did show evidence of pulmonary edema patient's proBNP was significantly elevated. Chest x-ray did show evidence of pulmonary edema. CTA was negative for pulmonary embolism. Patient's blood pressures were stable and IV fluids were held and patient was treated with a dose of IV Lasix. Patient's potassium and magnesium were within normal range. Case was discussed with the hospitalist. Due to the acuity of CHF leading to AFib for AFib leading to CHF hospitalist did request cardiology consult. Cardiology was consulted and they will see the patient. Patient family updated results of the workup and plan for admission. Patient was stable at time of transfer to the floor. Critical Care Procedure Note Authorized and Performed by: Slim Mata Total critical care time: Approximately 36 minutes Due to a high probability of clinically significant, life threatening deterioration, the patient required my highest level of preparedness to intervene emergently and I personally spent this critical care time directly and personally managing the patient. This critical care time included obtaining a history; examining the patient; pulse oximetry; ordering and review of studies; arranging urgent treatment with development of a management plan; evaluation of patient's response to treatment; frequent reassessment; and, discussions with other providers. This critical care time was performed to assess and manage the high probability of imminent, life-threatening deterioration that could result in multi-organ failure. It was exclusive of separately billable procedures and treating other patients and teaching time. Please see MDM section and the rest of the note for further information on patient assessment and treatment. <Slim Mata MD - Last Filed: 07/12/25 22:49> Differential Diagnosis Differential diagnosis: Likely palpitations, anxiety, sinus tachycardia, artial fibrillation, artial flutter, supraventricular tachycardia, ventricular tachycardia and WPW <Slim Mata MD - Last Filed: 07/12/25 22:49> Lab Data Attestation: I reviewed the patient's lab results. <Slim Mata MD - Last Filed: 07/12/25 22:49> Result diagrams: 07/13/25 03:40 07/17/25 05:52 <Sveta Zheng PA-C - Last Filed: 07/21/25 14:55> Labs: Lab Results 07/12/25 07/12/25 07/13/25 Range/Units 17:22 17:22 03:40 WBC 7.2 6.1 (4.5-10.0) K/mm3 RBC 4.63 4.24 (4.2-5.4) M/mm3 Hgb 14.6 13.3 (12.0-15.0) g/dL Hct 43.7 42.1 (37.0-47.0) % MCV 94.4 99.3 D (80-100) fl MCH 31.5 31.4 (26-34) pg MCHC 33.4 31.6 L (32-36) g/dl RDW 13.7 13.7 (11.5-14.5) % Plt Count 198 194 (150-375) k/mm3 MPV 9.7 10.0 (7.4-10.4) fl Immature Gran % (Auto) 0.3 0.2 (0-0.5) % Neut % (Auto) 64.1 62.1 (45.5-73.1) % Lymph % (Auto) 25.1 28.1 (18.3-44.2) % [place] % (Auto) 9.0 H 7.9 (2.6-8.5) % Eos % (Auto) 1.1 1.2 (0-4.4) % Baso % (Auto) 0.4 0.5 (0.2-1.2) % Lymph # (Auto) 1.81 1.71 (0.9-3.2) K/mm3 [place] # (Auto) 0.7 H 0.5 (0.1-0.6) K/mm3 Eos # (Auto) 0.1 0.1 (0-0.3) K/mm3 Baso # (Auto) 0.0 0.0 (0.0-0.1) K/mm3 Abs Immat Gran (auto) 0.02 0.01 (0.00-0.031) K/mm3 Absolute Neuts (auto) 4.6 3.8 (1.3-6.7) K/mm3 Absolute Nucleated RBC 0.000 0.000 (0.0-0.012) K/mm3 Nucleated RBC % 0.0 0.0 (0.0-0.2) % PT 14.5 (11.1-14.7) Seconds INR 1.1 APTT 26.9 (22.3-36.8) Seconds D-Dimer 1.21 H (<0.48) ug/mL Sodium 138 136 L (137-145) mmol/L Potassium 3.4 3.7 (3.4-5.0) mmol/L Chloride 105 104 (98-107) mmol/L Carbon Dioxide 24 25 (22-30) mmol/L Anion Gap 9 7 (4-12) mmol/L BUN 12 11 (7-17) mg/dL Creatinine 0.71 0.73 (0.7-1.0) mg/dL Estim Creat Clear Calc 68 68 ml/min Estimated GFR > 60 > 60 (59 - ) Glucose 106 97 (65-110) mg/dL Calcium 9.2 8.7 (8.4-10.2) mg/dL Magnesium 2.1 2.1 (1.6-2.3) mg/dL Total Bilirubin 2.4 H 2.2 H (0.2-1.3) mg/dL AST 99 H 108 H (14-36) U/L ALT 103 H 146 H (6-35) U/L Alkaline Phosphatase 63 68 (38-126) U/L Troponin I < 0.012 (0.000-0.034) ng/mL NT-Pro-B Natriuret Pep 4160 H Cancelled (19.9-100) pg/mL Total Protein 7.2 6.4 (6.3-8.2) g/dL Albumin 4.3 3.8 (3.5-5.1) g/dL Triglycerides 72 (<150) mg/dL Cholesterol 142 (0-200) mg/dL LDL Cholesterol Direct 66 mg/dL HDL Direct 52 mg/dL Lipase 61 (23-300) U/L TSH (Reflex) 1.430 (0.465-4.68) uIU/mL 07/14/25 Range/Units 03:36 WBC (4.5-10.0) K/mm3 RBC (4.2-5.4) M/mm3 Hgb (12.0-15.0) g/dL Hct (37.0-47.0) % MCV (80-100) fl MCH (26-34) pg MCHC (32-36) g/dl RDW (11.5-14.5) % Plt Count (150-375) k/mm3 MPV (7.4-10.4) fl Immature Gran % (Auto) (0-0.5) % Neut % (Auto) (45.5-73.1) % Lymph % (Auto) (18.3-44.2) % [place] % (Auto) (2.6-8.5) % Eos % (Auto) (0-4.4) % Baso % (Auto) (0.2-1.2) % Lymph # (Auto) (0.9-3.2) K/mm3 [place] # (Auto) (0.1-0.6) K/mm3 Eos # (Auto) (0-0.3) K/mm3 Baso # (Auto) (0.0-0.1) K/mm3 Abs Immat Gran (auto) (0.00-0.031) K/mm3 Absolute Neuts (auto) (1.3-6.7) K/mm3 Absolute Nucleated RBC (0.0-0.012) K/mm3 Nucleated RBC % (0.0-0.2) % PT (11.1-14.7) Seconds INR APTT (22.3-36.8) Seconds D-Dimer (<0.48) ug/mL Sodium 136 L (137-145) mmol/L Potassium 3.7 (3.4-5.0) mmol/L Chloride 106 (98-107) mmol/L Carbon Dioxide 27 (22-30) mmol/L Anion Gap 3 L (4-12) mmol/L BUN 14 (7-17) mg/dL Creatinine 0.74 (0.7-1.0) mg/dL Estim Creat Clear Calc 67 ml/min Estimated GFR > 60 (59 - ) Glucose 98 (65-110) mg/dL Calcium 8.7 (8.4-10.2) mg/dL Magnesium 2.1 (1.6-2.3) mg/dL Total Bilirubin (0.2-1.3) mg/dL AST (14-36) U/L ALT (6-35) U/L Alkaline Phosphatase (38-126) U/L Troponin I (0.000-0.034) ng/mL NT-Pro-B Natriuret Pep (19.9-100) pg/mL Total Protein (6.3-8.2) g/dL Albumin (3.5-5.1) g/dL Triglycerides (<150) mg/dL Cholesterol (0-200) mg/dL LDL Cholesterol Direct mg/dL HDL Direct mg/dL Lipase (23-300) U/L TSH (Reflex) (0.465-4.68) uIU/mL <Sveta Zheng PA-C - Last Filed: 07/21/25 14:55> Lab Results 07/12/25 07/12/25 07/13/25 Range/Units 17:22 17:22 03:40 WBC 7.2 6.1 (4.5-10.0) K/mm3 RBC 4.63 4.24 (4.2-5.4) M/mm3 Hgb 14.6 13.3 (12.0-15.0) g/dL Hct 43.7 42.1 (37.0-47.0) % MCV 94.4 99.3 D (80-100) fl MCH 31.5 31.4 (26-34) pg MCHC 33.4 31.6 L (32-36) g/dl RDW 13.7 13.7 (11.5-14.5) % Plt Count 198 194 (150-375) k/mm3 MPV 9.7 10.0 (7.4-10.4) fl Immature Gran % (Auto) 0.3 0.2 (0-0.5) % Neut % (Auto) 64.1 62.1 (45.5-73.1) % Lymph % (Auto) 25.1 28.1 (18.3-44.2) % [place] % (Auto) 9.0 H 7.9 (2.6-8.5) % Eos % (Auto) 1.1 1.2 (0-4.4) % Baso % (Auto) 0.4 0.5 (0.2-1.2) % Lymph # (Auto) 1.81 1.71 (0.9-3.2) K/mm3 [place] # (Auto) 0.7 H 0.5 (0.1-0.6) K/mm3 Eos # (Auto) 0.1 0.1 (0-0.3) K/mm3 Baso # (Auto) 0.0 0.0 (0.0-0.1) K/mm3 Abs Immat Gran (auto) 0.02 0.01 (0.00-0.031) K/mm3 Absolute Neuts (auto) 4.6 3.8 (1.3-6.7) K/mm3 Absolute Nucleated RBC 0.000 0.000 (0.0-0.012) K/mm3 Nucleated RBC % 0.0 0.0 (0.0-0.2) % PT 14.5 (11.1-14.7) Seconds INR 1.1 APTT 26.9 (22.3-36.8) Seconds D-Dimer 1.21 H (<0.48) ug/mL Sodium 138 136 L (137-145) mmol/L Potassium 3.4 3.7 (3.4-5.0) mmol/L Chloride 105 104 (98-107) mmol/L Carbon Dioxide 24 25 (22-30) mmol/L Anion Gap 9 7 (4-12) mmol/L BUN 12 11 (7-17) mg/dL Creatinine 0.71 0.73 (0.7-1.0) mg/dL Estim Creat Clear Calc 68 68 ml/min Estimated GFR > 60 > 60 (59 - ) Glucose 106 97 (65-110) mg/dL Calcium 9.2 8.7 (8.4-10.2) mg/dL Magnesium 2.1 2.1 (1.6-2.3) mg/dL Total Bilirubin 2.4 H 2.2 H (0.2-1.3) mg/dL AST 99 H 108 H (14-36) U/L ALT 103 H 146 H (6-35) U/L Alkaline Phosphatase 63 68 (38-126) U/L Troponin I < 0.012 (0.000-0.034) ng/mL NT-Pro-B Natriuret Pep 4160 H Cancelled (19.9-100) pg/mL Total Protein 7.2 6.4 (6.3-8.2) g/dL Albumin 4.3 3.8 (3.5-5.1) g/dL Triglycerides 72 (<150) mg/dL Cholesterol 142 (0-200) mg/dL LDL Cholesterol Direct 66 mg/dL HDL Direct 52 mg/dL Lipase 61 (23-300) U/L TSH (Reflex) 1.430 (0.465-4.68) uIU/mL 07/14/25 Range/Units 03:36 WBC (4.5-10.0) K/mm3 RBC (4.2-5.4) M/mm3 Hgb (12.0-15.0) g/dL Hct (37.0-47.0) % MCV (80-100) fl MCH (26-34) pg MCHC (32-36) g/dl RDW (11.5-14.5) % Plt Count (150-375) k/mm3 MPV (7.4-10.4) fl Immature Gran % (Auto) (0-0.5) % Neut % (Auto) (45.5-73.1) % Lymph % (Auto) (18.3-44.2) % [place] % (Auto) (2.6-8.5) % Eos % (Auto) (0-4.4) % Baso % (Auto) (0.2-1.2) % Lymph # (Auto) (0.9-3.2) K/mm3 [place] # (Auto) (0.1-0.6) K/mm3 Eos # (Auto) (0-0.3) K/mm3 Baso # (Auto) (0.0-0.1) K/mm3 Abs Immat Gran (auto) (0.00-0.031) K/mm3 Absolute Neuts (auto) (1.3-6.7) K/mm3 Absolute Nucleated RBC (0.0-0.012) K/mm3 Nucleated RBC % (0.0-0.2) % PT (11.1-14.7) Seconds INR APTT (22.3-36.8) Seconds D-Dimer (<0.48) ug/mL Sodium 136 L (137-145) mmol/L Potassium 3.7 (3.4-5.0) mmol/L Chloride 106 (98-107) mmol/L Carbon Dioxide 27 (22-30) mmol/L Anion Gap 3 L (4-12) mmol/L BUN 14 (7-17) mg/dL Creatinine 0.74 (0.7-1.0) mg/dL Estim Creat Clear Calc 67 ml/min Estimated GFR > 60 (59 - ) Glucose 98 (65-110) mg/dL Calcium 8.7 (8.4-10.2) mg/dL Magnesium 2.1 (1.6-2.3) mg/dL Total Bilirubin (0.2-1.3) mg/dL AST (14-36) U/L ALT (6-35) U/L Alkaline Phosphatase (38-126) U/L Troponin I (0.000-0.034) ng/mL NT-Pro-B Natriuret Pep (19.9-100) pg/mL Total Protein (6.3-8.2) g/dL Albumin (3.5-5.1) g/dL Triglycerides (<150) mg/dL Cholesterol (0-200) mg/dL LDL Cholesterol Direct mg/dL HDL Direct mg/dL Lipase (23-300) U/L TSH (Reflex) (0.465-4.68) uIU/mL <Slim Mata MD - Last Filed: 07/12/25 22:49> Imaging Data Attestation: I personally reviewed and interpreted this imaging study as follows: <Slim Mata MD - Last Filed: 07/12/25 22:49> My impression: X-ray: Pulmonary edema <Slim Mata MD - Last Filed: 07/12/25 22:49> Radiologist's impression: Impressions Chest X-Ray 07/12/25 17:10 IMPRESSION: Cardiomegaly with pulmonary edema suggestive of congestive heart failure. Chest CTA 07/12/25 19:01 IMPRESSION: There is no pulmonary embolism, aortic dissection, pericardial fluid.. Moderate right pleural effusion and small left pleural effusion with groundglass opacity bilaterally suggestive of pulmonary edema. Aneurysmal dilatation of the ascending aorta measuring [address] scans at this facility are performed using low dose modulation techniques as appropriate to perform exam including the following: automated exposure control; use of iterative reconstruction technique; adjustment of the mA and/or kV according to patient size (this includes techniques or standardized protocols for targeted exams where dose is matched to indication/reason for exam). <Slim Mata MD - Last Filed: 07/12/25 22:49> Discharge Plan Discharge Clinical Impression: Atrial fibrillation with rapid ventricular response CHF (congestive heart failure) Qualifiers: Heart failure type: unspecified Heart failure chronicity: unspecified Qualified Code(s): I50.9 - Heart failure, unspecified <Sveta Zheng PA-C - Last Filed: 07/21/25 14:55> Patient Disposition: Still a Patient <Sveta Zheng PA-C - Last Filed: 07/21/25 14:55> Condition: Stable <Sveta Zheng PA-C - Last Filed: 07/21/25 14:55>
[2025-07-12] MEDS: LACTATED RINGERS 1,000 ML 999 ML IV CONT (17:15)
[2025-07-12] MEDS: METOPROLOL TARTRATE INJ 5 MG/5 ML VIAL IV PUSH (17:15)
[2025-07-12 17:28] LABS: Hematocrit 43.7 % (37.0-47.0); Hemoglobin 14.6 g/dL (12.0-15.0); Immature Granulocyte Percent A 0.3 % (0-0.5); Lymphocytes Absolute Auto 1.81 K/mm3 (0.9-3.2); Mean Corpuscular HGB Conc 33.4 g/dl (32-36); Mean Corpuscular Hemoglobin 31.5 pg (26-34); Mean Corpuscular Volume 94.4 fl (80-100); Nucleated Red Blood Cells Absolute Auto 0.000 K/mm3 (0.0-0.012); Nucleated Red Blood Cells Perc 0.0 % (0.0-0.2); Platelet Count Result 198 k/mm3 (150-375); Red Blood Count 4.63 M/mm3 (4.2-5.4); White Blood Count 7.2 K/mm3 (4.5-10.0)
[2025-07-12 17:39] LABS: Alanine Aminotransferase 103 U/L (6-35); Albumin Level 4.3 g/dL (3.5-5.1); Alkaline Phosphatase 63 U/L (38-126); Anion Gap 9 mmol/L (4-12); Aspartate Amino Transferase 99 U/L (14-36); Bilirubin,Total 2.4 mg/dL (0.2-1.3); Blood Urea Nitrogen 12 mg/dL (7-17); Calcium 9.2 mg/dL (8.4-10.2); Carbon Dioxide 24 mmol/L (22-30); Chloride 105 mmol/L (98-107); Estimated CRCL calculation 68 ml/min; Estimated Glomerular Filt Rate > 60; Glucose 106 mg/dL (65-110); INR 1.1; Lipase 61 U/L (23-300); Magnesium 2.1 mg/dL (1.6-2.3); Potassium 3.4 mmol/L (3.4-5.0); Prothrombin Time 14.5 Seconds (11.1-14.7); Sodium 138 mmol/L (137-145); Total Protein 7.2 g/dL (6.3-8.2)
[2025-07-12 17:40] LABS: Partial Thromboplastin Time 26.9 Seconds (22.3-36.8)
[2025-07-12 17:51] LABS: NT Pro B Type Natriuretic Pept 4160 pg/mL (19.9-100); Troponin I < 0.012 ng/mL (0.000-0.034)
[2025-07-12 18:29] LABS: Thyroid Stimulating Hormone Reflex 1.430 uIU/mL (0.465-4.68)
[2025-07-12] MEDS: dilTIAZem 100 MG/100 ML 100 MG/100 ML BAG IV CONT (19:05)
[2025-07-12] MEDS: FUROSEMIDE INJ 40 MG/4 ML VIAL IV PUSH (20:15)
--- NOTE | 2025-07-12 20:51 | WPCEDHO ---
ED Hand Off Checklist All vitals saved:Y IV Site documented:Y All med administrations documented:Y Triage Note Triage Note to ED with SOB for a couple weeks 07/12/25 16:58 , PMD called and told her she thought that she was in AFIB Allergies methylprednisolone Allergy (Intermediate, Verified 07/12/25 16:49) Hypotension and SOB Family History (Last Reviewed 03/27/25 @ 11:14 by Marissa Oswald MA) Father Hypertension Mother Ovarian cancer Active Medications including assessments/comments Diltiazem HCl (Cardizem 100 Mg/100 Ml) 100 mg in 100 mls @ 10 mls/hr IV CONT .Q10H STA; Protocol Stop: 07/13/25 03:37 Last Titration: 07/12/25 20:41 Dose: 10 mg/hr, 10 mls/hr Documented By: NCI Infusion/Titration Document 07/12/25 20:41 NIC (Rec: 07/12/25 20:42 [facility] [id number]) Intake IV Site Peripheral Access Right Forearm Intake 8 Cumulative Intake ( 8 bag) Cumulative Intake ( 8 Rx) Container Volume 92 Waste Amount 0 Dosing Dose Rate 10 Infusion Rate 10 Cumulative Dose 8 Increase/Decrease Increased Elapsed Time Elapsed Time ( 1h 36m minutes) Diltiazem Infusion Assessment Document 07/12/25 20:41 NIC (Rec: 07/12/25 20:42 [facility] [id number]) Infusion Action Diltiazem Infusion Titrated/Rate Changed Action Pulse Pulse Rate (60-100) 155 H Blood Pressure Blood Pressure (100/ 125/91 H 60-140/90) Blood Pressure Mean 102 (mmHg) Admin: 07/12/25 19:05 Dose: 5 mg/hr, 5 mls/hr Documented By: KIANA Infusion/Titration Document 07/12/25 19:05 KIANA (Rec: 07/12/25 19:06 KIANA [id number]) Intake IV Site Peripheral Access Left Forearm Container Volume 100 Waste Amount 0 Dosing Dose Rate 5 Infusion Rate 5 Increase/Decrease Started Elapsed Time Elapsed Time ( 0m minutes) Diltiazem Infusion Assessment Document 07/12/25 19:05 KIANA (Rec: 07/12/25 19:06 KIANA [id number]) Infusion Action Diltiazem Infusion Initiated Action Pulse Pulse Rate (60-100) 140 H Blood Pressure Blood Pressure (100/ 131/75 60-140/90) Blood Pressure Mean 93 (mmHg) Administered/Completed Medications Discontinued Medications Diltiazem HCl (Diltiazem Hcl Inj 25 Mg/5 Ml Vial) 10 mg IV PUSH ONCE STA Stop: 07/12/25 17:39 Last Admin: 07/12/25 18:36 Dose: 10 mg Documented By: KIANA Diltiazem HCl (Diltiazem Hcl Inj 25 Mg/5 Ml Vial) 15 mg IV PUSH ONCE STA Stop: 07/12/25 18:11 Last Admin: 07/12/25 20:15 Dose: Not Given Documented By: NIC Non-Admin Reason: Order Discontinued Furosemide (Furosemide Inj 40 Mg/4 Ml Vial) 40 mg IV PUSH ONCE STA Stop: 07/12/25 19:15 Last Admin: 07/12/25 20:15 Dose: 40 mg Documented By: NIC Lactated Ringer's (Lr - Lactated Ringers Iv) 1,000 mls @ 999 mls/hr IV CONT .Q1H1M STA Stop: 07/12/25 18:10 Last Infusion: 07/12/25 18:39 Dose: Infused Documented By: Admin: 07/12/25 17:15 Dose: 999 mls/hr Documented By: KIANA Metoprolol Tartrate (Metoprolol Tartrate Inj 5 Mg/5 Ml Vial) 5 mg IV PUSH ONCE STA Stop: 07/12/25 17:11 Last Admin: 07/12/25 17:15 Dose: 5 mg Documented By: KIANA Interventions/Assessments Cardiac Monitoring Start: 07/12/25 16:43 Freq: Status: Active Protocol: Document 07/12/25 17:02 KIANA (Rec: 07/12/25 17:02 KIANA [id number]) Manager Developmental Assessment Manager Developmental Yes Applied Pulse Rate (60-100) 156 H IV / Saline Lock, Insert Start: 07/12/25 16:47 Freq: STAT Status: Active Protocol: Document 07/12/25 20:30 NCI (Rec: 07/12/25 20:30 [facility] [id number]) IV Assessment Peripheral Access Right Forearm IV Catheter Access Initiated IV Insertion Date 07/12/25 IV Insertion Time 20:30 Catheter Gauge 18 IV Insertion 1 Attempts Ultrasound Used for No Placement IV Site Assessment WNL IV Care and WNL Maintenance PA: Cardiovascular Assessment Start: 07/12/25 16:43 Freq: Status: Active Protocol: Document 07/12/25 16:59 AJW (Rec: 07/12/25 16:59 AJW [id number]) Cardiovascular Assessment Cardiovascular Dysrhythmias,Palpitations Symptoms Last Vital Signs Temperature 98.5 F 07/12/25 16:43 Pulse Rate 152 H 07/12/25 20:45 Respiratory Rate 25 H 07/12/25 20:45 Pulse Oximetry 92 07/12/25 20:45 Blood Pressure 116/83 07/12/25 20:45 Blood Pressure Mean 95 07/12/25 20:45 Oxygen Delivery Room Air 07/12/25 16:58 Weight 83.7 kg 07/12/25 16:58 Last Result - Abnormals Only [place] % (Auto) 9.0 % (2.6-8.5) H 07/12/25 17:22 [place] # (Auto) 0.7 K/mm3 (0.1-0.6) H 07/12/25 17:22 D-Dimer 1.21 ug/mL (<0.48) H 07/12/25 17:22 Total Bilirubin 2.4 mg/dL (0.2-1.3) H 07/12/25 17:22 AST 99 U/L (14-36) H 07/12/25 17:22 ALT 103 U/L (6-35) H 07/12/25 17:22 NT-Pro-B Natriuret Pep 4160 pg/mL (19.9-100) H 07/12/25 17:22 Most Recent Suicide Severity Rating Suicide Severity Rating NO RISK INDICATED 07/12/25 16:58
--- NOTE | 2025-07-12 20:58 | P.HP_ITS ---
H&P: HPI History of Present Illness Date/Time: 07/12/25 20:58 Chief Complaint: Shortness of breath for a few weeks Narrative: 69-year-old female with PMH hypertension, GERD, marijuana use, alcohol use disorder, presents to [facility] ER on 07/12/2025 complaining of shortness of breath for a few weeks. In the past she has had intermittent chest pain/shortness of breath, she has been taking aspirin. However, she recently had a stress test with [facility] cardiology group in [place]. 04/09/2025 Lexiscan/nuclear stress without abnormal findings. EF measured at 75%. On this occasion, she had no chest pain. She had a left foot surgery a few weeks prior, was given Solu-Medrol Dosepak for inflammation. Since then, she has had lower blood pressure and persistent shortness of breath. Unsure about her heart rate. She presented to her PCP to reports the symptoms and was told to go to the ER. She drove herself and currently has no shortness of breath. Denies fever, chest pain, syncope, nausea or vomiting, abdominal pain/diarrhea. She has not noticed leg swelling or weight gain. 6-8 alcoholic drinks 2-3 times per week. One mountain Dew per day. No tobacco/nicotine. Smokes marijuana. No history of acute bleeding events. It is reported in the ER her heart rate was in the 170s. EKG demonstrated AFib with RVR. No acute ST changes. She was given diltiazem 15 mg, 10 mg. Given 1 L normal saline bolus. Given metoprolol 5 mg IV x1. Then, start diltiazem GTT 10 milligrams/hour. Heart rate reduced to the 130s. Blood pressure low at 99/79 improving to 116/83. Cardiology consulted, further recommendations from the ER. WBC 7200, hemoglobin 14, potassium 3.4, replacing with KCl 40 mEq p.o.. Serum creatinine 0.71. INR 1.1. Mild transaminitis and elevated total bilirubin. BNP 4100, troponin negative x1. TSH 1.430. CTA chest negative for PE. Aneurysmal dilation of ascending aorta measuring 4 cm, moderate right pleural effusion, small left pleural effusion. Ground-glass opacities bilaterally. Subsequently, patient received Lasix 40 mg IV x1. Review of Systems Review of Systems: All systems reviewed & are unremarkable except as noted in HPI and below (Subjective) [facility] Past Medical History Medical History (Updated 07/12/25 @ 21:13 by Floresita Nevarez MD) Alcohol use Marijuana use Ascending aortic aneurysm Atrial fibrillation Difficulty swallowing Chest pain Hypertension GERD (gastroesophageal reflux disease) Surgical History Surgical History History of total knee arthroplasty (2012) Bilateral 2012 History of foot surgery (1988) Bilateral - 1988 History of tubal ligation (1991) H/O endoscopy Family History Family History Father Hypertension Mother , Age 51 Ovarian cancer Social History Social History Smoking status: Former smoker Alcohol intake: current Drinks per week: 10 Alcohol use details: Beer a couple of nights per week. Substance use: current Substance use type: marijuana Other substance usage details: smokes Do You Feel Safe in your Home?: Yes Lack of Transportation: No Lack of Food: Never True Current Housing: I Have Housing Concerned About Future Housing: No Difficulty Paying Gas/Electric Bills: No Difficulty Paying for Meds: No Currently Unemployed: No Education: High School Diploma/GED Difficulty w/ Childcare or Family Care: No Living arrangements: alone Occupation/Education: occupation Gender identity (if verbalized by the patient): Female Meds Home Medications and Allergies Home Medications ?Medication ?Instructions ?Recorded ?Confirmed ?Type aspirin 81 mg tablet 81 mg PO DAILY 03/20/2506/30 History losartan 50 mg-hydrochlorothiazide 1 tablet PO DAILY 9 0 days #90 tabs 03/20/25 07/12/25 Rx 12.5 mg tablet omeprazole 20 mg tablet,delayed 20 mg PO DAILY 5 07/12/25 History release Allergies Allergy/AdvReac Type Severity Reaction Status Date / Time methylprednisolone Allergy Intermediate Hypotension Verified 07/12/25 16:49 Vital Signs Vital Signs - 24 hr 07/12/25 16:43 07/12/25 16:55 07/12/25 16:56 Temperature 98.5 F Pulse Rate 163 H 144 H 146 H Respiratory Rate 22 H 18 28 H Blood Pressure 145/111 H 140/93 H Pulse Oximetry 99 97 95 Oxygen Delivery Room Air 11/13/25 16:58 07/12/25 17:00 07/12/25 17:01 Temperature Pulse Rate 182 H 157 H 172 H Respiratory Rate 27 H 25 H 20 Blood Pressure 140/93 H 138/107 H Pulse Oximetry 96 96 96 Oxygen Delivery Room Air 07/12/25 17:02 07/12/25 17:15 07/12/25 17:15 Temperature Pulse Rate 156 H 160 H 158 H Respiratory Rate 16 Blood Pressure Pulse Oximetry Oxygen Delivery 07/12/25 17:16 07/12/25 17:30 07/12/25 17:31 Temperature Pulse Rate 157 H 154 H 138 H Respiratory Rate 22 H 18 36 H Blood Pressure 118/103 H 111/83 Pulse Oximetry 95 95 95 Oxygen Delivery 07/12/25 17:45 07/12/25 17:46 07/12/25 18:00 Temperature Pulse Rate 138 H 144 H 135 H Respiratory Rate 23 H 27 H 20 Blood Pressure 109/87 Pulse Oximetry 96 99 Oxygen Delivery 07/12/25 18:01 07/12/25 18:05 07/12/25 18:15 Temperature Pulse Rate 141 H 145 H 122 H Respiratory Rate 20 20 21 H Blood Pressure 94/71 L 105/84 Pulse Oximetry 100 96 96 Oxygen Delivery 07/12/25 18:16 07/12/25 18:24 07/12/25 18:30 Temperature Pulse Rate 144 H 121 H 132 H Respiratory Rate 18 22 H 20 Blood Pressure 97/73 L 109/87 Pulse Oximetry 97 97 97 Oxygen Delivery 07/12/25 18:31 07/12/25 18:52 07/12/25 18:53 Temperature Pulse Rate 131 H 132 H 118 H Respiratory Rate 23 H 18 Blood Pressure 105/69 114/84 Pulse Oximetry 96 93 92 Oxygen Delivery 07/12/25 19:00 07/12/25 19:01 07/12/25 19:05 Temperature Pulse Rate 128 H 114 H 140 H Respiratory Rate 23 H 25 H Blood Pressure 131/75 131/75 Pulse Oximetry 94 95 Oxygen Delivery 07/12/25 19:16 07/12/25 19:30 07/12/25 19:45 Temperature Pulse Rate 141 H 122 H 116 H Respiratory Rate 24 H 20 22 H Blood Pressure 102/73 108/76 103/74 Pulse Oximetry 94 94 94 Oxygen Delivery 07/12/25 20:00 07/12/25 20:17 07/12/25 20:41 Temperature Pulse Rate 131 H 144 H 155 H Respiratory Rate 19 19 Blood Pressure 99/79 L 119/86 125/91 H Pulse Oximetry 94 96 Oxygen Delivery 07/12/25 20:42 07/12/25 20:45 Temperature Pulse Rate 148 H 152 H Respiratory Rate 23 H 25 H Blood Pressure 125/91 H 116/83 Pulse Oximetry 95 92 Oxygen Delivery Exam Const: General: comfortable and no acute distress Other: A&O x4 HENMT: Mouth: Yes moist mucous membranes Eyes: Pupils: Equal, round and reactive pupils present EOM: EOMs intact bilaterally Neck: Neck: supple Resp: Other: Right lower lung bhandari decreased breath sounds Cardio: Rate: tachycardic Rhythm: abnormal rhythm Heart sounds: no murmurs GI: Inspection: non-distended GI Palp: Yes Soft to palpation Auscultation: normal bowel sounds : External Female Exam: normal external appearance Neuro: Motor exam (neuro): 5/5 motor strength present throughout Sensory Exam: normal sensation Extrem: General: no edema H&P: Results Labs Labs: Short CBC 07/12/25 Range/Units 17:22 WBC 7.2 (4.5-10.0) K/mm3 Hgb 14.6 (12.0-15.0) g/dL Hct 43.7 (37.0-47.0) % Plt Count 198 (150-375) k/mm3 BMP 07/12/25 17:22 Sodium 138 Potassium 3.4 Chloride 105 Carbon Dioxide 24 BUN 12 Creatinine 0.71 Glucose 106 Calcium 9.2 Cardiac Enzymes 07/12/25 Range/Units 17:22 Troponin I < 0.012 (0.000-0.034) ng/mL Liver Function 07/12/25 Range/Units 17:22 Total Bilirubin 2.4 H (0.2-1.3) mg/dL AST 99 H (14-36) U/L ALT 103 H (6-35) U/L Alkaline Phosphatase 63 (38-126) U/L Albumin 4.3 (3.5-5.1) g/dL Assessment and Plan Assessment and plan (1) Alcohol use: Code(s): F10.90 - Alcohol use, unspecified, uncomplicated Status: Acute (2) Atrial fibrillation: Code(s): I48.91 - Unspecified atrial fibrillation Status: Acute (3) GERD (gastroesophageal reflux disease): Code(s): K21.9 - Gastro-esophageal reflux disease without esophagitis Status: Acute (4) Shortness of breath: Code(s): R06.02 - Shortness of breath Status: Acute (5) Marijuana use: Code(s): F12.90 - Cannabis use, unspecified, uncomplicated Status: Acute (6) Ascending aortic aneurysm: Code(s): I71.21 - Aneurysm of the ascending aorta, without rupture Status: Acute (7) Bilateral pleural effusion: Code(s): J90 - Pleural effusion, not elsewhere classified Status: Acute Plan 69-year-old female with PMH hypertension, GERD, marijuana use, alcohol use disorder, presents to [facility] ER on 07/12/2025 complaining of shortness of breath for a few weeks. In the past she has had intermittent chest pain/shortness of breath, she has been taking aspirin. However, she recently had a stress test with [facility] cardiology group in [place]. 04/09/2025 Lexiscan/nuclear stress without abnormal findings. EF measured at 75%. On this occasion, she had no chest pain. She had a left foot surgery a few weeks prior, was given Solu-Medrol Dosepak for inflammation. Since then, she has had lower blood pressure and persistent shortness of breath. Unsure about her heart rate. She presented to her PCP to reports the symptoms and was told to go to the ER. She drove herself and currently has no shortness of breath. Denies fever, chest pain, syncope, nausea or vomiting, abdominal pain/diarrhea. She has not noticed leg swelling or weight gain. 6-8 alcoholic drinks 2-3 times per week. One mountain Dew per day. No tobacco/nicotine. Smokes marijuana. No history of acute bleeding events. It is reported in the ER her heart rate was in the 170s. EKG demonstrated AFib with RVR. No acute ST changes. She was given diltiazem 15 mg, 10 mg. Given 1 L normal saline bolus. Given metoprolol 5 mg IV x1. Then, start diltiazem GTT 10 milligrams/hour. Heart rate reduced to the 130s. Blood pressure low at 99/79 improving to 116/83. Cardiology consulted, further recommendations from the ER. WBC 7200, hemoglobin 14, potassium 3.4, replacing with KCl 40 mEq p.o.. Serum creatinine 0.71. INR 1.1. Mild transaminitis and elevated total bilirubin. BNP 4100, troponin negative x1. TSH 1.430. CTA chest negative for PE. Aneurysmal dilation of ascending aorta measuring 4 cm, moderate right pleural effusion, small left pleural effusion. Ground-glass opacities bilaterally. Subsequently, patient received Lasix 40 mg IV x1. ----- Cardiology consulted. Potassium 3.4. Adding supplement. Keep potassium greater than 4, magnesium greater than 2. Continue diltiazem GTT at 10 milligrams/hour. Ordered TTE. Discontinue STAINED GLASS JOINER aspirin, start Lovenox ther apeutic dosing. Adverse effects, risk and benefits of medication discussed. Pleural effusions and elevated BNP likely due to tachycardia mediated cardiomyopathy. Follow volume status, received Lasix, control heart rate. Daily weights, intake/output (strict). Alcohol abuse counseling provided, marijuana use counseling provided greater than 10 minutes. Patient understood. Resume STAINED GLASS JOINER PPI. Ascending aortic aneurysm. Patient made aware. She reports her blood pressure is typically well controlled. Discontinue marijuana smoking. Trend LFTs which likely due to hepatic congestion. Once better, start atorvastatin. Follow-up with vascular in the outpatient setting ----- Patient wishes to be DNR. Discussion held the presence of her boyfriend while in the ER. Saline lock IV. Heart healthy diet. Lovenox Admit to IMU Greater than 75 minutes spent on [id number] time, coordination with clinician, counseling. Hospitalist [facility] Advance Care Plan I have confirmed that the patient's Advanced Care Plan is present, code status is documented, or surrogate decision maker is listed in patient medical record.: Yes Medication Reconciliation I have utilized all available resources to obtain, update and review the patients current medications (includes all prescriptions, OTC, herbals, cannabis, and nutritional supplements).: Yes
[2025-07-12] MEDS: POTASSIUM CHLORIDE 20 MEQ ER TABLET 40 MEQ PO (21:09)
[2025-07-12] MEDS: ENOXAPARIN 100 MG/ML SYRINGE 83 MG SUB-Q (21:37)
--- NOTE | 2025-07-12 22:26 | ADMGEN ---
This patient, Merced Rodriguez, was admitted to IMU Room 202-01. Patient/family oriented to hospital policies and general routines including ID bracelet, bed and alarms, visiting hours, pain management, procedures, bathroom and other care routines, personal items, smoking policy, room service/diet, and visiting hours. Information on how to activate the Rapid Response Team has been discussed. Patient/Family are encouraged to report perceived risks to care and to ask questions if they do not understand what they are told or what they should do.
[2025-07-12] MEDS: ONDANSETRON INJ 4 MG/2 ML VIAL IV PUSH (22:48)
[2025-07-12] MEDS: FOLIC ACID 1 MG TABLET PO (23:31)
[2025-07-12] MEDS: THIAMINE HCL 100 MG TABLET PO (23:31)
[2025-07-13] VITALS (20 sets, daily range): BP systolic 90–103; BP diastolic 43–77; PULSE 85–149; RESP 15–21; TEMP 36.6–36.7; O2SAT 90–96
--- NOTE | 2025-07-13 | ECHO_ITS ---
Patient Info Name: Merced Rodriguez Age: 69 years : 1955 Gender: Female Ht: 67 in Wt: 185 lbs BSA: 2.01 m2 HR: 121 bpm BP: 103 / 43 mmHg Heart Rhythm: Atrial Fibrillation Technical Quality: Good Exam Date: 07/13/2025 9:33 AM Patient Status: O Admit Date: 07/12/2025 Exam Type: CA echo doppler color flow Complete two-dimensional, color flow and Doppler transthoracic echocardiogram is performed. Staff Referring Physician: Slim Mata Hand Dry Cleaner: Andi Burns III Attending Provider: Floresita Nevarez Summary 1. Complete two-dimensional, color flow and Doppler transthoracic echocardiogram is performed. 2. tim. 3. Moderate concentric LVH with normal LV size and moderately depressed systolic function. 4. Severe left atrial enlargement. 5. Mild tricuspid regurgitation velocity indicates at least mild pulmonary hypertension. 6. Atrial fibrillation, study done during AF with RVR. Left Ventricle Left ventricular chamber dimension is normal. Left ventricular systolic function is moderately reduced, estimated at 30-35. There is moderate concentric increased left ventricular wall thickness. The left ventricular diastolic function is indeterminate. Right Ventricle Right ventricular chamber dimension is normal. Left Atria Left atrial chamber dimension is severely enlarged. Right Atria Right atrial chamber dimension is mildly enlarged. Aortic Valve The aortic valve is normal. Pulmonic Valve The pulmonic valve is not well visualized. Mitral Valve The mitral valve has normal leaflets. There is trace mitral valve regurgitation. Tricuspid Valve The tricuspid valve leaflets are normal. There is mild tricuspid valve regurgitation. Mild pulmonary hypertension, estimated pulmonary arterial systolic pressure is 44 mmHg. Pericardium/Pleural The pericardium appears normal. Aorta The aortic root size at the sinus of Valsalva is normal. Left Ventricular Outflow Tract Name Value Normal LVOT 2D LVOT Diameter 2.1 cm LVOT Doppler LVOT Peak Velocity 76 cm/s LVOT Peak Gradient 2 mmHg LVOT Mean Gradient 1 mmHg LVOT VTI 12 cm LVOT VTI/AV VTI Ratio 0.7 LVOT Stroke Volume 42 ml LVOT CO 4.5 l/min LVOT CI 2.3 l/min/m2 Pulmonic Valve Name Value Normal PV Doppler PV Peak Velocity 74 cm/s PV Peak Gradient 2 mmHg PV Mean Gradient 1 mmHg PV Regurgitation Doppler VA Peak End Diastolic Velocity 127 cm/s Mitral Valve Name Value Normal MV Doppler MV Peak Gradient 4 mmHg MV Mean Gradient 1 mmHg MV Area (Cont Eq VTI) 2.7 cm2 MV Regurgitation Doppler MR Peak Gradient 50 mmHg MV Diastolic Function MV E Peak Velocity 67 cm/s MV A Peak Velocity 27 cm/s MV E/A 2.5 MV Decel Time (PW) 111 ms MV Annular TDI MV E/e' (Septal) 11.0 MV E/e' (Lateral) 5.3 MV E/e' (Average) 8.2 Tricuspid Valve Name Value Normal TV Regurgitation Doppler TR Peak Velocity 291 cm/s TR Peak Gradient 34 mmHg Estimated PAP/RSVP RA Pressure 10 mmHg <=5 PA Systolic Pressure 44 mmHg <36 RV Systolic Pressure 44 mmHg <36 TV Annular TDI TV Lateral Judy s' Velocity 11.0 cm/s >=9.5 Aortic Valve Name Value Normal AV Doppler AV Peak Velocity 96 cm/s AV Peak Gradient 3 mmHg AV Mean Gradient 2 mmHg AV VTI 18 cm AV Area (Cont Eq VTI) 2.4 cm2 >=3.0 AV Area (Cont Eq Kevin) 2.8 cm2 AV DI (Kevin) 0.79 AV Regurgitation 2D LVOT Area 3.6 cm2 Ventricles Name Value Normal LV Dimensions 2D/MM IVS Diastolic Thickness (2D) 1.2 cm 0.6-1.0 LVID Diastole (2D) 4.3 cm 3.8-5.2 LVIW Diastolic Thickness (2D) 1.1 cm 0.6-0.9 LVID Systole (2D) 3.5 cm 2.2-3.5 LVOT Diameter 2.1 cm LV Mass (2D Cubed) 176.40 g 67.00-162.00 LV Mass Index (2D Cubed) 88 g/m2 43-95 Relative Wall Thickness (2D) 0.51 <=0.42 LV Fractional Shortening/Ejection Fraction 2D/MM LV Fractional Shortening (2D) 19 % 27-45 LV EF (2D Teichholz) 39 % LV Diastolic Volume (4C MOD) 59 ml LV EF (4C MOD) 32 % LV Diastolic Volume (2C MOD) 76 ml LV EF (2C MOD) 36 % LV Diastolic Volume (BP MOD) 67 ml 46-106 LV Diastolic Volume Index (BP MOD) 33 ml/m2 29-61 LV Systolic Volume (BP MOD) 45 ml 14-42 LV Systolic Volume Index (BP MOD) 22 ml/m2 8-24 LV EF (BP MOD) 33 % 54-74 LV Diastolic Length (4C) 5.9 cm LV Systolic Length (4C) 5.5 cm LV Stroke Volume (4C MOD) 18 ml Atria Name Value Normal LA Dimensions LA Volume (4C A-L) 105 ml LA Volume (BP A-L) 108 ml RA Dimensions RA Systolic Major [place] Length (4C) 5.5 cm 2.2-2.8 RA Area (4C) 23.1 cm2 <=18.0 Report Signatures
[2025-07-13] MEDS: dilTIAZem 100 MG/100 ML 100 MG/100 ML BAG 10 MG IV CONT (02:31)
[2025-07-13 04:16] LABS: Hematocrit 42.1 % (37.0-47.0); Hemoglobin 13.3 g/dL (12.0-15.0); Immature Granulocyte Percent A 0.2 % (0-0.5); Lymphocytes Absolute Auto 1.71 K/mm3 (0.9-3.2); Mean Corpuscular HGB Conc 31.6 g/dl (32-36); Mean Corpuscular Hemoglobin 31.4 pg (26-34); Mean Corpuscular Volume 99.3 fl (80-100); Nucleated Red Blood Cells Absolute Auto 0.000 K/mm3 (0.0-0.012); Nucleated Red Blood Cells Perc 0.0 % (0.0-0.2); Platelet Count Result 194 k/mm3 (150-375); Red Blood Count 4.24 M/mm3 (4.2-5.4); White Blood Count 6.1 K/mm3 (4.5-10.0)
[2025-07-13 04:31] LABS: Alanine Aminotransferase 146 U/L (6-35); Albumin Level 3.8 g/dL (3.5-5.1); Alkaline Phosphatase 68 U/L (38-126); Anion Gap 7 mmol/L (4-12); Aspartate Amino Transferase 108 U/L (14-36); Bilirubin,Total 2.2 mg/dL (0.2-1.3); Blood Urea Nitrogen 11 mg/dL (7-17); Calcium 8.7 mg/dL (8.4-10.2); Carbon Dioxide 25 mmol/L (22-30); Chloride 104 mmol/L (98-107); Cholesterol 142 mg/dL (0-200); Estimated CRCL calculation 68 ml/min; Estimated Glomerular Filt Rate > 60; Glucose 97 mg/dL (65-110); HDL Direct 52 mg/dL; Magnesium 2.1 mg/dL (1.6-2.3); Potassium 3.7 mmol/L (3.4-5.0); Sodium 136 mmol/L (137-145); Total Protein 6.4 g/dL (6.3-8.2); Triglycerides 72 mg/dL (<150)
[2025-07-13] MEDS: ENOXAPARIN 100 MG/ML SYRINGE 83 MG SUB-Q (08:55)
[2025-07-13] MEDS: MULTIVITAMINS THERAPEUTIC TAB (*BKC) 1 TABLET PO (08:56)
[2025-07-13] MEDS: PANTOPRAZOLE 40 MG TABLET PO (08:56)
[2025-07-13] MEDS: THIAMINE HCL 100 MG TABLET PO (08:56)
[2025-07-13] MEDS: FOLIC ACID 1 MG TABLET PO (08:56)
--- NOTE | 2025-07-13 10:35 | P.CONCA_ITS ---
Assessment and Plan Assessment and plan (1) Atrial fibrillation: Code(s): I48.91 - Unspecified atrial fibrillation Status: Acute (2) CHF (congestive heart failure): Code(s): I50.9 - Heart failure, unspecified Status: Acute Plan this is a 69-year-old lady with no significant previous cardiac history. She does have a previous history of excessive ethanol in ingestion which has improved in recent years. She enters the hospital with shortness of breath and appears to be the result of hemodynamic embarrassment as a result of atrial fibrillation. She was not in atrial fibrillation at the time of her recent nuclear stress test but we do not know the exact onset of this arrhythmia. At this time the appropriate recommendations are to treat her with diuretics for the pulmonary congestion, beta-blockers for heart rate control rather than IV diltiazem and start systemic anticoagulation orally. If she can be brought into a state of hemodynamic compensation then I would recommend discharge with plans toward considering cardioversion after 4-6 weeks of systemic anticoagulation. Will follow her through this hospitalization and adjust rate control medication as required. I will start with metoprolol succinate 50 mg daily. Her blood pressure is in the low-normal range so I would not continue her losartan at this time John Jean MD [facility] History of Present Illness History of Present Illness Consult date/time: 07/13/25 10:35 Reason For Visit: AFib with RVR, CHF Narrative: this is a 69-year-old lady I am seeing at the request of the hospitalist to assist with management of atrial fibrillation and congestive heart failure. She is not known to me prior to this consultation. Several years ago she saw my partner, Dr. Aguilar because of some atypical sounding chest pain. At that time she had a stress echo performed which was normal. She has no other previous cardiac history. She went to see her physician in the office yesterday because of a 2 to three-week history of increasing shortness of breath with activity culminating in shortness of breath at rest and with minimal activity. She was not having any chest pain she was not aware of tachycardia or palpitations or any other symptoms she declines any accumulating lower extremity edema or other distress. She was found in the office to be in atrial fibrillation with rapid response and was advised to go to the emergency room where she was evaluated and admitted. Her evaluation includes a chest x-ray that appears to show enlargement of the cardiac silhouette, bilateral effusions and some pulmonary congestion. She was placed on intravenous diltiazem which has improved her heart rate and she was given a dose of IV furosemide yesterday and has been placed on subcutaneous Lovenox. At the time of this consultation she appears to be comfortable watching television has no other distress or complaints. Review of Systems 2 Constitutional: Constitutional: Reports no additional constitutional complaints Eyes: Eyes: Reports no additional eye complaints ENT: Reports system reviewed and no additional complaints, except as documented Cardiovascular: Cardiovascular: Reports no additional cardiovascular complaints Respiratory: Respiratory: Reports no additional respiratory complaints Gastrointestinal: Gastrointestinal: Reports no additional gastrointestinal complaints Musculoskeletal: Musculoskeletal: Reports no additional musculoskeletal complaints Integumentary/Breasts: Skin/Breast: Reports system reviewed and no additional complaints, except as docu Neurologic: Reports system reviewed and no additional complaints, except as documented Endocrine: Endocrine: Reports no additional endocrine complaints Hematologic/Lymphatic: Hematologic/Lymphatic: Reports no additional hematologic/lymphatic complaints Allergic/Immunologic: Allergic/Immunologic: Reports no additional allergic/immunologic complaints [facility] Past Medical History Medical History (Updated 07/12/25 @ 22:49 by Slim Mata MD) Alcohol use Marijuana use Ascending aortic aneurysm Atrial fibrillation Difficulty swallowing Chest pain Hypertension GERD (gastroesophageal reflux disease) Surgical History Surgical History History of total knee arthroplasty (2012) Bilateral 2012 History of foot surgery (1988) Bilateral - 1988 History of tubal ligation (1991) H/O endoscopy Family History Family History (Updated 07/12/25 @ 22:30 by Janine Zuñiga RN) Father Hypertension Lung cancer Mother , Age 51 Ovarian cancer Social History Social History Smoking packs per day: 0.5 Smoking cigarettes per day: 10.0 Years smoked: 2 Smoking pack-years: 1.00 Smoking status: Former smoker Tobacco type: cigarettes Alcohol intake: current Drinks per week: 32 Alcohol use details: Beer a couple of nights per week. Substance use: current Substance use type: marijuana Other substance usage details: smokes Do You Feel Safe in your Home?: Yes Lack of Transportation: No Lack of Food: Never True Current Housing: I Have Housing Concerned About Future Housing: No Difficulty Paying Gas/Electric Bills: No Difficulty Paying for Meds: No Currently Unemployed: No Education: High School Diploma/GED Difficulty w/ Childcare or Family Care: No Living arrangements: alone Occupation/Education: occupation Gender identity (if verbalized by the patient): Female Spiritual care concerns: No Meds Home Medications and Allergies Home Medications ?Medication ?Instructions ?Recorded ?Confirmed ?Type aspirin 81 mg tablet 81 mg PO DAILY 03/20/2506/30 History losartan 50 mg-hydrochlorothiazide 1 tablet PO DAILY 9 0 days #90 tabs 03/20/25 07/12/25 Rx 12.5 mg tablet omeprazole 20 mg tablet,delayed 20 mg PO DAILY 5 07/12/25 History release Allergies Allergy/AdvReac Type Severity Reaction Status Date / Time methylprednisolone Allergy Intermediate Hypotension Verified 07/12/25 22:28 Vital Signs Vital Signs - 24 hr 07/12/25 16:43 07/12/25 16:55 07/12/25 16:56 Temperature 36.9 C Pulse Rate 163 H 144 H 146 H Respiratory Rate 22 H 18 28 H Blood Pressure 145/111 H 140/93 H Pulse Oximetry 99 97 95 Oxygen Delivery Room Air 07/12/25 16:58 07/12/25 17:00 07/12/25 17:01 Temperature Pulse Rate 182 H 157 H 172 H Respiratory Rate 27 H 25 H 20 Blood Pressure 140/93 H 138/107 H Pulse Oximetry 96 96 96 Oxygen Delivery Room Air 07/12/25 17:02 07/12/25 17:15 07/12/25 17:15 Temperature Pulse Rate 156 H 160 H 158 H Respiratory Rate 16 Blood Pressure Pulse Oximetry Oxygen Delivery 07/12/25 17:16 07/12/25 17:30 07/12/25 17:31 Temperature Pulse Rate 157 H 154 H 138 H Respiratory Rate 22 H 18 36 H Blood Pressure 118/103 H 111/83 Pulse Oximetry 95 95 95 Oxygen Delivery 07/12/25 17:45 07/12/25 17:46 07/12/25 18:00 Temperature Pulse Rate 138 H 144 H 135 H Respiratory Rate 23 H 27 H 20 Blood Pressure 109/87 Pulse Oximetry 96 99 Oxygen Delivery 07/12/25 18:01 07/12/25 18:05 07/12/25 18:15 Temperature Pulse Rate 141 H 145 H 122 H Respiratory Rate 20 20 21 H Blood Pressure 94/71 L 105/84 Pulse Oximetry 100 96 96 Oxygen Delivery 07/12/25 18:16 07/12/25 18:24 07/12/25 18:30 Temperature Pulse Rate 144 H 121 H 132 H Respiratory Rate 18 22 H 20 Blood Pressure 97/73 L 109/87 Pulse Oximetry 97 97 97 Oxygen Delivery 07/12/25 18:31 07/12/25 18:52 07/12/25 18:53 Temperature Pulse Rate 131 H 132 H 118 H Respiratory Rate 23 H 18 Blood Pressure 105/69 114/84 Pulse Oximetry 96 93 92 Oxygen Delivery 07/12/25 19:00 07/12/25 19:01 07/12/25 19:05 Temperature Pulse Rate 128 H 114 H 140 H Respiratory Rate 23 H 25 H Blood Pressure 131/75 131/75 Pulse Oximetry 94 95 Oxygen Delivery 07/12/25 19:16 07/12/25 19:30 07/12/25 19:45 Temperature Pulse Rate 141 H 122 H 116 H Respiratory Rate 24 H 20 22 H Blood Pressure 102/73 108/76 103/74 Pulse Oximetry 94 94 94 Oxygen Delivery 07/12/25 20:00 07/12/25 20:17 07/12/25 20:41 Temperature Pulse Rate 131 H 144 H 155 H Respiratory Rate 19 19 Blood Pressure 99/79 L 119/86 125/91 H Pulse Oximetry 94 96 Oxygen Delivery 07/12/25 20:42 07/12/25 20:45 07/12/25 21:10 Temperature Pulse Rate 148 H 152 H 140 H Respiratory Rate 23 H 25 H Blood Pressure 125/91 H 116/83 112/74 Pulse Oximetry 95 92 Oxygen Delivery 07/12/25 21:30 07/12/25 22:00 07/12/25 22:08 Temperature 36.8 C Pulse Rate 136 H 107 H 123 H Respiratory Rate 20 16 Blood Pressure 101/75 104/72 Pulse Oximetry 95 97 Oxygen Delivery 07/12/25 23:58 07/13/25 00:00 07/13/25 00:00 Temperature 36.8 C Pulse Rate 92 103 H Respiratory Rate 16 Blood Pressure 90/66 L Pulse Oximetry 94 Oxygen Delivery Room Air 07/13/25 00:00 07/13/25 02:00 07/13/25 02:00 Temperature Pulse Rate 92 112 H 116 H Respiratory Rate Blood Pressure 90/66 L 93/62 L Pulse Oximetry Oxygen Delivery 07/13/25 02:30 07/13/25 02:31 07/13/25 04:00 Temperature Pulse Rate 105 H 105 H Respiratory Rate Blood Pressure 92/69 L 92/69 L Pulse Oximetry Oxygen Delivery Room Air 07/13/25 04:00 07/13/25 04:00 07/13/25 04:00 Temperature 36.7 C Pulse Rate 124 H 122 H 122 H Respiratory Rate 16 Blood Pressure 103/43 L 103/43 L Pulse Oximetry 92 Oxygen Delivery 07/13/25 06:00 07/13/25 06:00 07/13/25 06:00 Temperature Pulse Rate 121 H 132 H 132 H Respiratory Rate 16 Blood Pressure 96/62 L 96/62 L Pulse Oximetry 90 Oxygen Delivery 07/13/25 07:54 Temperature 36.7 C Pulse Rate 123 H Respiratory Rate 15 Blood Pressure 95/60 L Pulse Oximetry 95 Oxygen Delivery Exam 2 Const: General: comfortable and no acute distress Other: Pleasant overweight lady, comfortable in no distress with IV diltiazem running HENMT: Mouth: Yes moist mucous membranes Eyes: Sclera: sclerae normal Neck: Neck: supple and no JVD Resp: Effort & Inspection: normal respiratory effort Other: mild basilar crackles noted Cardio: Rate: regular rate Rhythm: abnormal rhythm irregularly irregular GI: GI Palp: Yes Soft to palpation Auscultation: normal bowel sounds Skin: General skin exam: normal color Neuro: Other: alert and oriented x3 Extrem: General: normal to inspection Results Labs and Meds 07/13/25 03:40 07/13/25 03:40 Lab results: Cardiac Enzymes 07/12/25 07/13/25 Range/Units 17:22 03:40 AST 99 H 108 H (14-36) U/L Troponin I < 0.012 (0.000-0.034) ng/mL Coagulation 07/12/25 Range/Units 17:22 PT 14.5 (11.1-14.7) Seconds APTT 26.9 (22.3-36.8) Seconds Lipids 07/13/25 Range/Units 03:40 Triglycerides 72 (<150) mg/dL Cholesterol 142 (0-200) mg/dL CBC 07/12/25 07/13/25 Range/Units 17:22 03:40 WBC 7.2 6.1 (4.5-10.0) K/mm3 RBC 4.63 4.24 (4.2-5.4) M/mm3 Hgb 14.6 13.3 (12.0-15.0) g/dL Hct 43.7 42.1 (37.0-47.0) % Plt Count 198 194 (150-375) k/mm3 Lymph # (Auto) 1.81 1.71 (0.9-3.2) K/mm3 [place] # (Auto) 0.7 H 0.5 (0.1-0.6) K/mm3 Eos # (Auto) 0.1 0.1 (0-0.3) K/mm3 Baso # (Auto) 0.0 0.0 (0.0-0.1) K/mm3 Comprehensive Metabolic Panel 07/12/25 07/13/25 Range/Units 17:22 03:40 Sodium 138 136 L (137-145) mmol/L Potassium 3.4 3.7 (3.4-5.0) mmol/L Chloride 105 104 (98-107) mmol/L Carbon Dioxide 24 25 (22-30) mmol/L BUN 12 11 (7-17) mg/dL Creatinine 0.71 0.73 (0.7-1.0) mg/dL Glucose 106 97 (65-110) mg/dL Calcium 9.2 8.7 (8.4-10.2) mg/dL AST 99 H 108 H (14-36) U/L ALT 103 H 146 H (6-35) U/L Alkaline Phosphatase 63 68 (38-126) U/L Total Protein 7.2 6.4 (6.3-8.2) g/dL Albumin 4.3 3.8 (3.5-5.1) g/dL Intake and Output 07/12/25 07/13/25 07/13/25 23:59 07:59 15:59 Intake Total 1012.8 362.0 240 Output Total 800 Balance 1012.8 -438.0 240 Intake: IV 1012.8 122.0 Lactated Ringers 1,000 ml @ 999 1000 mls/hr IV CONT .Q1H1M STA Rx#: [id number] dilTIAZem 100 MG/100 ML 100 mg 12.8 122.0 In 100 ml @ 10 MG/HR 10 mls/hr IV CONT .Q10H [facility] Rx#:[id number] Oral 240 240 Output: Urine 800 Patient Weight 07/13/25 23:59 Weight 84 kg
[2025-07-13] MEDS: METOPROLOL SUCCINATE EXT REL 50 MG TABCR PO (11:12)
--- NOTE | 2025-07-13 11:30 | P.PNIM_ITS ---
Progress Note: A&P Assessment and Plan (1) Atrial fibrillation with rapid ventricular response: Code(s): I48.91 - Unspecified atrial fibrillation Status: Acute Plan AFib with RVR Suspected acute CHF -new onset, unclear etiology. Atrial fibrillation is listed on medical history, may not be new -TSH within normal limits, will replace electrolytes as needed potassium greater than 4, magnesium greater than 2 -potassium 3.7 given 40 mEq KCL -appreciate cardiology consultation: Recommendation change diltiazem drip to p.o. metoprolol, anticoagulation Xarelto, diuresis with Lasix 20 mg -echocardiogram pending -CHADS2 Vasc 3 Chronic conditions -history of alcohol use: Will monitor with CIWA protocol, patient drinks 6-8 alcoholic drinks 2-3 times weekly -GERD: Omeprazole -hypertension: Held home losartan, hydrochlorothiazide while we start rate controlling medications -AAA: Monitor outpatient Diet: Heart healthy DVT prophylaxis: Starting Xarelto Code status: DNR Disposition: Home in 1-3 days Time Spent With Patient Time: 35 minutes Subjective Date/time seen: 07/13/25 11:30 Interval history: Patient seen examined. She is admitted with new onset atrial fibrillation with RVR. She was placed on diltiazem drip overnight. Patient seen by Cardiology this morning quit change patient to metoprolol succinate 50 mg daily, diabetics changed to Lasix 20 mg daily, started on anticoagulation Xarelto. We will continue monitor patient patient denies fever, chills, nausea vomiting and diarrhea. Review of Systems Review of Systems: 10 point ROS complete, negative other th an what is specified in HPI. Exam Narrative: - GENERAL: Pleasant woman in No acute d istress. Well-nourished. - EYES: EOMI. Anicteric. - HENT: Moist mucous membranes. - LUNGS: Clear to auscultation bilateral ly, no wheezing, rhonchi, or rales. - CARDIOVASCULAR: Tachycardic - ABDOMEN: Soft, non-tender and non-dist ended. No palpable masses. - EXTREMITIES: No edema. Peripheral puls es 2+. - NEUROLOGIC: No focal neurological defi cits. CN II-XII grossly intact. - PSYCHIATRIC: Awake, Alert and oriented x 3. Appropriate mood and affect. - SKIN: No rashes or lesions. Warm. - LYMPH: No cervical lymphadenopathy. Objective Data Vital Signs Vital Signs: Vital Signs - 24 hr 11/13/25 16:43 07/12/25 16:55 07/12/25 16:56 Temperature 36.9 C Pulse Rate 163 H 144 H 146 H Respiratory Rate 22 H 18 28 H Blood Pressure 145/111 H 140/93 H Pulse Oximetry 99 97 95 Oxygen Delivery Room Air 07/12/25 16:58 07/12/25 17:00 07/12/25 17:01 Temperature Pulse Rate 182 H 157 H 172 H Respiratory Rate 27 H 25 H 20 Blood Pressure 140/93 H 138/107 H Pulse Oximetry 96 96 96 Oxygen Delivery Room Air 07/12/25 17:02 07/12/25 17:15 07/12/25 17:15 Temperature Pulse Rate 156 H 160 H 158 H Respiratory Rate 16 Blood Pressure Pulse Oximetry Oxygen Delivery 07/12/25 17:16 07/12/25 17:30 07/12/25 17:31 Temperature Pulse Rate 157 H 154 H 138 H Respiratory Rate 22 H 18 36 H Blood Pressure 118/103 H 111/83 Pulse Oximetry 95 95 95 Oxygen Delivery 07/12/25 17:45 07/12/25 17:46 07/12/25 18:00 Temperature Pulse Rate 138 H 144 H 135 H Respiratory Rate 23 H 27 H 20 Blood Pressure 109/87 Pulse Oximetry 96 99 Oxygen Delivery 07/12/25 18:01 07/12/25 18:05 07/12/25 18:15 Temperature Pulse Rate 141 H 145 H 122 H Respiratory Rate 20 20 21 H Blood Pressure 94/71 L 105/84 Pulse Oximetry 100 96 96 Oxygen Delivery 07/12/25 18:16 07/12/25 18:24 07/12/25 18:30 Temperature Pulse Rate 144 H 121 H 132 H Respiratory Rate 18 22 H 20 Blood Pressure 97/73 L 109/87 Pulse Oximetry 97 97 97 Oxygen Delivery 07/12/25 18:31 07/12/25 18:52 07/12/25 18:53 Temperature Pulse Rate 131 H 132 H 118 H Respiratory Rate 23 H 18 Blood Pressure 105/69 114/84 Pulse Oximetry 96 93 92 Oxygen Delivery 07/12/25 19:00 07/12/25 19:01 07/12/25 19:05 Temperature Pulse Rate 128 H 114 H 140 H Respiratory Rate 23 H 25 H Blood Pressure 131/75 131/75 Pulse Oximetry 94 95 Oxygen Delivery 07/12/25 19:16 07/12/25 19:30 07/12/25 19:45 Temperature Pulse Rate 141 H 122 H 116 H Respiratory Rate 24 H 20 22 H Blood Pressure 102/73 108/76 103/74 Pulse Oximetry 94 94 94 Oxygen Delivery 07/12/25 20:00 07/12/25 20:17 07/12/25 20:41 Temperature Pulse Rate 131 H 144 H 155 H Respiratory Rate 19 19 Blood Pressure 99/79 L 119/86 125/91 H Pulse Oximetry 94 96 Oxygen Delivery 07/12/25 20:42 07/12/25 20:45 07/12/25 21:10 Temperature Pulse Rate 148 H 152 H 140 H Respiratory Rate 23 H 25 H Blood Pressure 125/91 H 116/83 112/74 Pulse Oximetry 95 92 Oxygen Delivery 07/12/25 21:30 07/12/25 22:00 07/12/25 22:08 Temperature 36.8 C Pulse Rate 136 H 107 H 123 H Respiratory Rate 20 16 Blood Pressure 101/75 104/72 Pulse Oximetry 95 97 Oxygen Delivery 07/12/25 23:58 07/13/25 00:00 07/13/25 00:00 Temperature 36.8 C Pulse Rate 92 103 H Respiratory Rate 16 Blood Pressure 90/66 L Pulse Oximetry 94 Oxygen Delivery Room Air 07/13/25 00:00 07/13/25 02:00 07/13/25 02:00 Temperature Pulse Rate 92 112 H 116 H Respiratory Rate Blood Pressure 90/66 L 93/62 L Pulse Oximetry Oxygen Delivery 07/13/25 02:30 07/13/25 02:31 07/13/25 04:00 Temperature Pulse Rate 105 H 105 H Respiratory Rate Blood Pressure 92/69 L 92/69 L Pulse Oximetry Oxygen Delivery Room Air 07/13/25 04:00 07/13/25 04:00 07/13/25 04:00 Temperature 36.7 C Pulse Rate 124 H 122 H 122 H Respiratory Rate 16 Blood Pressure 103/43 L 103/43 L Pulse Oximetry 92 Oxygen Delivery 07/13/25 06:00 07/13/25 06:00 07/13/25 06:00 Temperature Pulse Rate 121 H 132 H 132 H Respiratory Rate 16 Blood Pressure 96/62 L 96/62 L Pulse Oximetry 90 Oxygen Delivery 07/13/25 07:54 07/13/25 08:00 07/13/25 08:00 Temperature 36.7 C Pulse Rate 123 H 123 H Respiratory Rate 15 Blood Pressure 95/60 L 95/60 L Pulse Oximetry 95 Oxygen Delivery Room Air 07/13/25 08:00 07/13/25 10:00 07/13/25 10:00 Temperature Pulse Rate 128 H 129 H 129 H Respiratory Rate Blood Pressure 90/62 L 90/62 L Pulse Oximetry Oxygen Delivery 07/13/25 10:00 07/13/25 11:29 Temperature 36.7 C Pulse Rate 129 H 128 H Respiratory Rate 17 Blood Pressure 101/77 Pulse Oximetry 93 Oxygen Delivery Intake/Output Intake/Output: Intake & Output 07/10/25 07/11/25 07/12/25 07/13/25 23:59 23:59 23:59 23:59 Intake Total 1012.8 642.0 Output Total 800 Balance 1012.8 -158.0 Meds/Results Medications: Active Medications Generic Name Dose Route Start Last Admin Trade Name Freq PRN Reason Stop Dose Admin Folic Acid 1 mg 07/12/25 22:50 07/13/25 08:56 Folic Acid 1 Mg Tablet PO 1 mg DAILY [facility] Administration Furosemide 20 mg 07/14/25 09:00 Furosemide 20 Mg Tablet PO DAILY JASVIR Metoprolol Succinate 50 mg 07/13/25 10:35 07/13/25 11:12 Metoprolol Succinate Ext Rel 50 Mg Tabcr PO 50 mg QAM [facility] Administration Multivitamins Therapeutic 1 tablet 07/13/25 09:00 07/13/25 08:56 Multivitamins Therapeutic Tab (*Bkc) PO 1 tablet QAM [facility] Administration Ondansetron HCl 4 mg 07/12/25 20:09 07/12/25 22:48 Ondansetron Inj 4 Mg/2 Ml Vial IV PUSH 4 mg Q4H PRN Administration Nausea Pantoprazole Sodium 40 mg 07/13/25 09:00 07/13/25 08:56 Pantoprazole 40 Mg Tablet PO 40 mg QAM [facility] Administration Perflutren Lipid Microsphere 0 ml 07/12/25 19:58 Perflutren Lipid Microspheres 1.5 Ml Vial Diluted To 10 Ml Total Volume IV PUSH 07/15/25 19:59 ONCE PRN adequate visualization Protocol Rivaroxaban 20 mg 07/13/25 17:00 Rivaroxaban 20 Mg Tablet PO DAILY@1700 [facility] Thiamine HCl 100 mg 07/12/25 22:50 07/13/25 08:56 Thiamine Hcl 100 Mg Tablet PO 100 mg QAM [facility] Administration Radiology Results: ITS Impressions Chest X-Ray 07/12/25 17:10 IMPRESSION: Cardiomegaly with pulmonary edema suggestive of congestive heart failure. Chest CTA 07/12/25 19:01 IMPRESSION: There is no pulmonary embolism, aortic dissection, pericardial fluid.. Moderate right pleural effusion and small left pleural effusion with groundglass opacity bilaterally suggestive of pulmonary edema. Aneurysmal dilatation of the ascending aorta measuring [address] scans at this facility are performed using low dose modulation techniques as appropriate to perform exam including the following: automated exposure control; use of iterative reconstruction technique; adjustment of the mA and/or kV according to patient size (this includes techniques or standardized protocols for targeted exams where dose is matched to indication/reason for exam). Labs Labs: Laboratory Results - last 24 hr 07/12/25 07/12/25 07/13/25 17:22 17:22 03:40 WBC 7.2 6.1 RBC 4.63 4.24 Hgb 14.6 13.3 Hct 43.7 42.1 MCV 94.4 99.3 D MCH 31.5 31.4 MCHC 33.4 31.6 L RDW 13.7 13.7 Plt Count 198 194 MPV 9.7 10.0 Immature Gran % (Auto) 0.3 0.2 Neut % (Auto) 64.1 62.1 Lymph % (Auto) 25.1 28.1 [place] % (Auto) 9.0 H 7.9 Eos % (Auto) 1.1 1.2 Baso % (Auto) 0.4 0.5 Lymph # (Auto) 1.81 1.71 [place] # (Auto) 0.7 H 0.5 Eos # (Auto) 0.1 0.1 Baso # (Auto) 0.0 0.0 Abs Immat Gran (auto) 0.02 0.01 Absolute Neuts (auto) 4.6 3.8 Absolute Nucleated RBC 0.000 0.000 Nucleated RBC % 0.0 0.0 PT 14.5 INR 1.1 APTT 26.9 D-Dimer 1.21 H Sodium 138 136 L Potassium 3.4 3.7 Chloride 105 104 Carbon Dioxide 24 25 Anion Gap 9 7 BUN 12 11 Creatinine 0.71 0.73 Estim Creat Clear Calc 68 68 Estimated GFR > 60 > 60 Glucose 106 97 Calcium 9.2 8.7 Magnesium 2.1 2.1 Total Bilirubin 2.4 H 2.2 H AST 99 H 108 H ALT 103 H 146 H Alkaline Phosphatase 63 68 Troponin I < 0.012 NT-Pro-B Natriuret Pep 4160 H Cancelled Total Protein 7.2 6.4 Albumin 4.3 3.8 Triglycerides 72 Cholesterol 142 LDL Cholesterol Direct 66 HDL Direct 52 Lipase 61 TSH (Reflex) 1.430
[2025-07-13] MEDS: RIVAROXABAN 20 MG TABLET PO (16:46)
[2025-07-14] VITALS (28 sets, daily range): BP systolic 102–125; BP diastolic 64–84; PULSE 114–154; RESP 16–21; TEMP 36.4–36.8; O2SAT 93–96
[2025-07-14 04:15] LABS: Anion Gap 3 mmol/L (4-12); Blood Urea Nitrogen 14 mg/dL (7-17); Calcium 8.7 mg/dL (8.4-10.2); Carbon Dioxide 27 mmol/L (22-30); Chloride 106 mmol/L (98-107); Estimated CRCL calculation 67 ml/min; Estimated Glomerular Filt Rate > 60; Glucose 98 mg/dL (65-110); Magnesium 2.1 mg/dL (1.6-2.3); Potassium 3.7 mmol/L (3.4-5.0); Sodium 136 mmol/L (137-145)
--- NOTE | 2025-07-14 09:06 | PM.PNCARD ---
Progress Note: A&P Assessment and Plan (1) Atrial fibrillation: Code(s): I48.91 - Unspecified atrial fibrillation Status: Acute Assessment and Plan: Patient with atrial fibrillation with RVR unknown duration-paroxysmal versus persistent in the setting of excessive alcohol consumption. TSH within normal limits. Heart rate remains elevated. Given patient's LV systolic dysfunction, protestant of rhythm control would be appropriate. Patient has already been initiated on beta-steven, and anticoagulation with rivaroxaban. We will plan on KATINA guided DC cardioversion during this hospitalization if patient remains in AFib. (2) CHF (congestive heart failure): Code(s): I50.9 - Heart failure, unspecified Status: Acute Assessment and Plan: CHF with reduced ejection fraction, EF reported to be 30-35%. - Will attempt to restore sinus rhythm during this hospitalization. - Continue gentle diuresis - guideline directed medical treatment for CHF with reduced ejection fraction -patient is already on beta-steven. add SGLT2i. Unable to use ARNI and MRA at present due to relatively low blood pressure. - Recent MPI negative for ischemia. - patient reports excessive alcohol consumption. She was advised to stop alcohol use. Patient was brought eyes understanding. Time Spent With Patient Time with patient: Greater than 35 minutes Subjective Date/time seen: 07/14/25 09:06 Interval history: 07/14/2025- Patient sitting up in the bed. Reports improvement in dyspnea. No chest pain. No palpitations at this time. on telemetry, patient remains in atrial fibrillation with RVR with heart rate in 120s 140s. Review of Systems Review of Systems: General: Negative for fever, chills, fatigue Psychological: Negative for anxiety, depression Ophthalmic: negative for loss of vision ENT: Negative for epistaxis, headaches Allergy and immunology: Negative for hives, nasal congestion Hematologic and lymphatic: Negative for overt bleeding problems Endocrine: Negative for hot flashes, palpitations Respiratory: Negative for cough, hemoptysis Cardiovascular: Negative for chest pain, Dyspnea improved Gastrointestinal: Negative for abdominal pain, nausea, vomiting, hematochezia Musculoskeletal: Negative for myalgia, joint pains Neurological: Negative for weakness Dermatological: Negative for rash, skin discoloration Exam Narrative: PHYSICAL EXAMINATION: GENERAL: Alert, oriented, no acute distress MENTAL STATUS: affect appropriate to mood EYES: Extraocular movements intact, no pallor EARS: External ears appear normal, hearing grossly normal NOSE: Normal and patent, no discharge MOUTH: Mucous membranes moist, tongue normal NECK: Supple, no JVD CHEST: Good respiratory effort, clear to auscultation HEART: tachycardia, irregularly irregular rhythm ABDOMEN: Soft, nontender NEUROLOGICAL: Alert, oriented, normal speech, no gross motor deficits MUSCULOSKELETAL: No major deformity, no amputation EXTREMITIES: trace pedal edema, no clubbing, no cyanosis SKIN: no rash on the exposed area, no cyanosis PSYCHIATRIC: Normal mood, appropriate affect Objective Data Vital Signs Vital Signs: Vital Signs - 24 hr 07/13/25 10:00 07/13/25 10:00 07/13/25 10:00 Temperature Pulse Rate 129 H 129 H 129 H Pulse Rate [Apical Monitor] Respiratory Rate Blood Pressure 90/62 L 90/62 L Pulse Oximetry Oxygen Delivery 07/13/25 11:29 07/13/25 12:00 07/13/25 12:00 Temperature 36.7 C Pulse Rate 128 H 85 Pulse Rate [Apical Monitor] Respiratory Rate 17 Blood Pressure 101/77 Pulse Oximetry 93 Oxygen Delivery Room Air 07/13/25 15:49 07/13/25 16:00 07/13/25 16:00 Temperature 36.7 C Pulse Rate 141 H 142 H Pulse Rate [Apical Monitor] Respiratory Rate 20 Blood Pressure 103/68 Pulse Oximetry 96 Oxygen Delivery Room Air 07/13/25 18:00 07/13/25 19:53 07/13/25 19:59 Temperature 36.7 C Pulse Rate 128 H 130 H 130 H Pulse Rate [Apical Monitor] Respiratory Rate 21 H 21 H Blood Pressure 103/70 Pulse Oximetry 95 95 Oxygen Delivery Room Air 07/13/25 19:59 07/13/25 20:00 07/13/25 20:45 Temperature Pulse Rate 149 H Pulse Rate [Apical Monitor] 130 H Respiratory Rate Blood Pressure 103/70 Pulse Oximetry 96 Oxygen Delivery Room Air 07/13/25 22:00 07/13/25 23:51 07/14/25 00:00 Temperature 36.6 C Pulse Rate 121 H 140 H 138 H Pulse Rate [Apical Monitor] Respiratory Rate 20 Blood Pressure 102/77 Pulse Oximetry 94 Oxygen Delivery 07/14/25 00:08 07/14/25 00:08 07/14/25 02:00 Temperature Pulse Rate 140 H 131 H Pulse Rate [Apical Monitor] 140 H Respiratory Rate 20 Blood Pressure 102/77 Pulse Oximetry 94 Oxygen Delivery Room Air 07/14/25 04:00 07/14/25 04:00 07/14/25 04:00 Temperature 36.4 C L Pulse Rate 144 H 144 H Pulse Rate [Apical Monitor] 144 H Respiratory Rate 18 18 Blood Pressure 108/70 108/70 Pulse Oximetry 95 95 Oxygen Delivery Room Air 07/14/25 04:00 07/14/25 05:32 07/14/25 07:46 Temperature 36.4 C Pulse Rate 137 H 126 H 154 H Pulse Rate [Apical Monitor] Respiratory Rate 18 Blood Pressure 107/68 Pulse Oximetry 93 Oxygen Delivery Intake/Output Intake/Output: Intake & Output 07/11/25 07/12/25 07/13/25 07/14/25 23:59 23:59 23:59 23:59 Intake Total 1012.8 1122.0 473 Output Total 802 400 Balance 1012.8 320.0 73 Meds/Results Medications: Active Medications Generic Name Dose Route Start Last Admin Trade Name Freq PRN Reason Stop Dose Admin Folic Acid 1 mg 07/12/25 22:50 07/13/25 08:56 Folic Acid 1 Mg Tablet PO 1 mg DAILY JASVIR Administration Furosemide 20 mg 07/14/25 09:00 Furosemide 20 Mg Tablet PO DAILY JASVIR Metoprolol Succinate 50 mg 07/13/25 10:35 07/13/25 11:12 Metoprolol Succinate Ext Rel 50 Mg Tabcr PO 50 mg QAM JASVIR Administration Multivitamins Therapeutic 1 tablet 07/13/25 09:00 07/13/25 08:56 Multivitamins Therapeutic Tab (*Bkc) PO 1 tablet QAM JASVIR Administration Ondansetron HCl 4 mg 07/12/25 20:09 07/12/25 22:48 Ondansetron Inj 4 Mg/2 Ml Vial IV PUSH 4 mg Q4H PRN Administration Nausea Pantoprazole Sodium 40 mg 07/13/25 09:00 07/13/25 08:56 Pantoprazole 40 Mg Tablet PO 40 mg QAM JASVIR Administration Perflutren Lipid Microsphere 0 ml 07/12/25 19:58 Perflutren Lipid Microspheres 1.5 Ml Vial Diluted To 10 Ml Total Volume IV PUSH 07/15/25 19:59 ONCE PRN adequate visualization Protocol Rivaroxaban 20 mg 07/13/25 17:00 07/13/25 16:46 Rivaroxaban 20 Mg Tablet PO 20 mg DAILY@1700 [facility] Administration Thiamine HCl 100 mg 07/12/25 22:50 07/13/25 08:56 Thiamine Hcl 100 Mg Tablet PO 100 mg QAM [facility] Administration Radiology Results: ITS Impressions Chest X-Ray 07/12/25 17:10 IMPRESSION: Cardiomegaly with pulmonary edema suggestive of congestive heart failure. Chest CTA 07/12/25 19:01 IMPRESSION: There is no pulmonary embolism, aortic dissection, pericardial fluid.. Moderate right pleural effusion and small left pleural effusion with groundglass opacity bilaterally suggestive of pulmonary edema. Aneurysmal dilatation of the ascending aorta measuring [address] scans at this facility are performed using low dose modulation techniques as appropriate to perform exam including the following: automated exposure control; use of iterative reconstruction technique; adjustment of the mA and/or kV according to patient size (this includes techniques or standardized protocols for targeted exams where dose is matched to indication/reason for exam). Labs Labs: Laboratory Results - last 24 hr 07/14/25 03:36 Sodium 136 L Potassium 3.7 Chloride 106 Carbon Dioxide 27 Anion Gap 3 L BUN 14 Creatinine 0.74 Estim Creat Clear Calc 67 Estimated GFR > 60 Glucose 98 Calcium 8.7 Magnesium 2.1
--- NOTE | 2025-07-14 09:19 | PM.IMPN ---
Progress Note: A&P Assessment and Plan (1) Atrial fibrillation with rapid ventricular response: Code(s): I48.91 - Unspecified atrial fibrillation Status: Acute Plan AFib with RVR Heart failure reduced ejection fraction -new onset, unclear etiology. Atrial fibrillation is listed on medical history, may not be new -TSH within normal limits, will replace electrolytes as needed potassium greater than 4, magnesium greater than 2 -potassium 3.7, giving 40 mEq KCL -mag 2.1 -appreciate cardiology consultation: Recommendation change diltiazem drip to p.o. metoprolol, anticoagulation Xarelto, diuresis with Lasix 20 mg. Patient heart rate not under control with the metoprolol, plan for KATINA cardioversion -echocardiogram 07/13: EF 30 35%, indeterminate diastolic function -CHADS2 Vasc 3, started on xarelto -starting Jardiance for the low EF Chronic conditions -history of alcohol use: Will monitor with CIWA protocol, patient drinks 6-8 alcoholic drinks 2-3 times weekly -GERD: Omeprazole -hypertension: Held home losartan, hydrochlorothiazide while we start rate controlling medications -AAA: Monitor outpatient Diet: Heart healthy DVT prophylaxis: continue Xarelto Code status: DNR Disposition: Home in 1-3 days, pending HR control Time Spent With Patient Time: 35 minutes Subjective Date/time seen: 07/14/25 09:19 Interval history: Patient seen and examined. She is asymptomatic however heart rate going up to 150 with AFib with RVR. Cardiology is recommending a KATINA cardioversion. Patient denies fever, chills, nausea, vomiting, lightheadedness, dizziness, chest pain, shortness of breath. Review of Systems Review of Systems: 10 point ROS complete, negative other than what is specified in HPI. All systems reviewed & are unremarkable except as noted in HPI and below Exam Narrative: - GENERAL: Pleasant woman in No acute distress. Well-nourished. - EYES: EOMI. Anicteric. - HENT: Moist mucous membranes. Hearing aids - LUNGS: Clear to auscultation bilaterally, no wheezing, rhonchi, or rales. - CARDIOVASCULAR: Tachycardic, irregular - ABDOMEN: Soft, non-tender and non-distended. No palpable masses. - EXTREMITIES: No edema. Peripheral pulses 2+. - NEUROLOGIC: No focal neurological deficits. CN II-XII grossly intact. - PSYCHIATRIC: Awake, Alert and oriented x 3. Appropriate mood and affect. - SKIN: No rashes or lesions. Warm. - LYMPH: No cervical lymphadenopathy. Objective Data Vital Signs Vital Signs: Vital Signs - 24 hr 07/13/25 10:00 07/13/25 10:00 07/13/25 10:00 Temperature Pulse Rate 129 H 129 H 129 H Pulse Rate [Apical Monitor] Respiratory Rate Blood Pressure 90/62 L 90/62 L Pulse Oximetry Oxygen Delivery 07/13/25 11:29 07/13/25 12:00 07/13/25 12:00 Temperature 36.7 C Pulse Rate 128 H 85 Pulse Rate [Apical Monitor] Respiratory Rate 17 Blood Pressure 101/77 Pulse Oximetry 93 Oxygen Delivery Room Air 07/13/25 15:49 07/13/25 16:00 07/13/25 16:00 Temperature 36.7 C Pulse Rate 141 H 142 H Pulse Rate [Apical Monitor] Respiratory Rate 20 Blood Pressure 103/68 Pulse Oximetry 96 Oxygen Delivery Room Air 07/13/25 18:00 07/13/25 19:53 07/13/25 19:59 Temperature 36.7 C Pulse Rate 128 H 130 H 130 H Pulse Rate [Apical Monitor] Respiratory Rate 21 H 21 H Blood Pressure 103/70 Pulse Oximetry 95 95 Oxygen Delivery Room Air 07/13/25 19:59 07/13/25 20:00 07/13/25 20:45 Temperature Pulse Rate 149 H Pulse Rate [Apical Monitor] 130 H Respiratory Rate Blood Pressure 103/70 Pulse Oximetry 96 Oxygen Delivery Room Air 07/13/25 22:00 07/13/25 23:51 07/14/25 00:00 Temperature 36.6 C Pulse Rate 121 H 140 H 138 H Pulse Rate [Apical Monitor] Respiratory Rate 20 Blood Pressure 102/77 Pulse Oximetry 94 Oxygen Delivery 07/14/25 00:08 07/14/25 00:08 07/14/25 02:00 Temperature Pulse Rate 140 H 131 H Pulse Rate [Apical Monitor] 140 H Respiratory Rate 20 Blood Pressure 102/77 Pulse Oximetry 94 Oxygen Delivery Room Air 07/14/25 04:00 07/14/25 04:00 07/14/25 04:00 Temperature 36.4 C L Pulse Rate 144 H 144 H Pulse Rate [Apical Monitor] 144 H Respiratory Rate 18 18 Blood Pressure 108/70 108/70 Pulse Oximetry 95 95 Oxygen Delivery Room Air 07/14/25 04:00 07/14/25 05:32 07/14/25 07:46 Temperature 36.4 C Pulse Rate 137 H 126 H 154 H Pulse Rate [Apical Monitor] Respiratory Rate 18 Blood Pressure 107/68 Pulse Oximetry 93 Oxygen Delivery Intake/Output Intake/Output: Intake & Output 07/11/25 07/12/25 07/13/25 07/14/25 23:59 23:59 23:59 23:59 Intake Total 1012.8 1122.0 473 Output Total 802 500 Balance 1012.8 320.0 -27 Meds/Results Medications: Active Medications Generic Name Dose Route Start Last Admin Trade Name Freq PRN Reason Stop Dose Admin Folic Acid 1 mg 07/12/25 22:50 07/13/25 08:56 Folic Acid 1 Mg Tablet PO 1 mg DAILY JASVIR Administration Furosemide 20 mg 07/14/25 09:00 Furosemide 20 Mg Tablet PO DAILY JASVIR Metoprolol Succinate 50 mg 07/13/25 10:35 07/13/25 11:12 Metoprolol Succinate Ext Rel 50 Mg Tabcr PO 50 mg QAM [facility] Administration Multivitamins Therapeutic 1 tablet 07/13/25 09:00 07/13/25 08:56 Multivitamins Therapeutic Tab (*Bkc) PO 1 tablet QAM [facility] Administration Ondansetron HCl 4 mg 07/12/25 20:09 07/12/25 22:48 Ondansetron Inj 4 Mg/2 Ml Vial IV PUSH 4 mg Q4H PRN Administration Nausea Pantoprazole Sodium 40 mg 07/13/25 09:00 07/13/25 08:56 Pantoprazole 40 Mg Tablet PO 40 mg QAM JASVIR Administration Perflutren Lipid Microsphere 0 ml 07/12/25 19:58 Perflutren Lipid Microspheres 1.5 Ml Vial Diluted To 10 Ml Total Volume IV PUSH 07/15/25 19:59 ONCE PRN adequate visualization Protocol Rivaroxaban 20 mg 07/13/25 17:00 07/13/25 16:46 Rivaroxaban 20 Mg Tablet PO 20 mg DAILY@1700 JASVIR Administration Thiamine HCl 100 mg 07/12/25 22:50 07/13/25 08:56 Thiamine Hcl 100 Mg Tablet PO 100 mg QAM JASVIR Administration Radiology Results: ITS Impressions Chest X-Ray 07/12/25 17:10 IMPRESSION: Cardiomegaly with pulmonary edema suggestive of congestive heart failure. Chest CTA 07/12/25 19:01 IMPRESSION: There is no pulmonary embolism, aortic dissection, pericardial fluid.. Moderate right pleural effusion and small left pleural effusion with groundglass opacity bilaterally suggestive of pulmonary edema. Aneurysmal dilatation of the ascending aorta measuring [address] scans at this facility are performed using low dose modulation techniques as appropriate to perform exam including the following: automated exposure control; use of iterative reconstruction technique; adjustment of the mA and/or kV according to patient size (this includes techniques or standardized protocols for targeted exams where dose is matched to indication/reason for exam). Labs Labs: Laboratory Results - last 24 hr 07/14/25 03:36 Sodium 136 L Potassium 3.7 Chloride 106 Carbon Dioxide 27 Anion Gap 3 L BUN 14 Creatinine 0.74 Estim Creat Clear Calc 67 Estimated GFR > 60 Glucose 98 Calcium 8.7 Magnesium 2.1
[2025-07-14] MEDS: METOPROLOL SUCCINATE EXT REL 50 MG TABCR PO (09:42)
[2025-07-14] MEDS: FOLIC ACID 1 MG TABLET PO (09:42)
[2025-07-14] MEDS: EMPAGLIFLOZIN 10 MG TABLET PO (09:43)
[2025-07-14] MEDS: MULTIVITAMINS THERAPEUTIC TAB (*BKC) 1 TABLET PO (09:43)
[2025-07-14] MEDS: THIAMINE HCL 100 MG TABLET PO (09:43)
[2025-07-14] MEDS: PANTOPRAZOLE 40 MG TABLET PO (09:43)
[2025-07-14] MEDS: FUROSEMIDE 20 MG TABLET PO (09:54)
[2025-07-14] MEDS: POTASSIUM CHLORIDE 20 MEQ ER TABLET 40 MEQ PO (09:55)
--- NOTE | 2025-07-14 11:04 | PC.NURSE ---
On 07/14/25, the student, [ Sarah Childs ], provided care and completed [facility] documentation on this patient. I have reviewed the student's documentation and agree with the findings.
--- NOTE | 2025-07-14 13:01 | WNDPHOTO ---
PHOTO ONLY - See Nursing Notes and/ or assessments for documentation.
--- NOTE | 2025-07-14 13:07 | PC.NURSE ---
When assessing the patient, the IV site appeared swollen and pink. PT denies pain. Notified Pharmacy and Dr Carney. Will treat with warm compresses and elevation. If worsening, received order to notify Dr Carney. Removed excess fluid from IV and removed IV. Photo taken and site is circled to monitor.
[2025-07-14] MEDS: RIVAROXABAN 20 MG TABLET PO (17:02)
[2025-07-14] MEDS: ONDANSETRON INJ 4 MG/2 ML VIAL IV PUSH (17:02)
[2025-07-15] VITALS (24 sets, daily range): BP systolic 96–113; BP diastolic 62–90; PULSE 107–151; RESP 12–22; TEMP 36.3–36.7; O2SAT 94–97
[2025-07-15 07:01] LABS: Anion Gap 8 mmol/L (4-12); Blood Urea Nitrogen 15 mg/dL (7-17); Calcium 8.9 mg/dL (8.4-10.2); Carbon Dioxide 19 mmol/L (22-30); Chloride 107 mmol/L (98-107); Estimated CRCL calculation 67 ml/min; Estimated Glomerular Filt Rate > 60; Glucose 105 mg/dL (65-110); Magnesium 2.3 mg/dL (1.6-2.3); Potassium 4.2 mmol/L (3.4-5.0); Sodium 134 mmol/L (137-145)
[2025-07-15] MEDS: METOPROLOL SUCCINATE EXT REL 50 MG TABCR PO (08:07)
[2025-07-15] MEDS: FUROSEMIDE 20 MG TABLET PO (08:08)
[2025-07-15] MEDS: MULTIVITAMINS THERAPEUTIC TAB (*BKC) 1 TABLET PO (08:08)
[2025-07-15] MEDS: EMPAGLIFLOZIN 10 MG TABLET PO (08:08)
[2025-07-15] MEDS: FOLIC ACID 1 MG TABLET PO (08:08)
[2025-07-15] MEDS: THIAMINE HCL 100 MG TABLET PO (08:08)
[2025-07-15] MEDS: PANTOPRAZOLE 40 MG TABLET PO (08:08)
--- NOTE | 2025-07-15 09:13 | P.PNCA_ITS ---
Progress Note: A&P Assessment and Plan (1) Atrial fibrillation: Code(s): I48.91 - Unspecified atrial fibrillation Status: Acute Assessment and Plan: Patient with atrial fibrillation with RVR unknown duration-paroxysmal versus persistent in the setting of excessive alcohol consumption. TSH within normal limits. Patient has remained in AFib with RVR despite beta-steven and amiodarone. Given patient's LV systolic dysfunction, christian of rhythm control would be appropriate. Patient has already been initiated on anticoagulation with rivaroxaban. After discussing benefits, risks and alternatives, patient is willing to proceed with KATINA guided DC cardioversion tomorrow. Keep NPO from midnight. Staff informed about plans for KATINA guided cardioversion tomorrow. Patient has transaminitis with elevated AST and ALT, probably due to excess alcohol intake plus minus hepatic congestion from CHF. Plan on using amiodarone for short-term basis to facilitate cardioversion. Continue to monitor liver e nzymes. (2) CHF (congestive heart failure): Code(s): I50.9 - Heart failure, unspecified Status: Acute Assessment and Plan: CHF with reduced ejection fraction, EF reported to be 30-35%. - Will attempt to restore sinus rhythm during this hospitalization. - Continue gentle diuresis - guideline directed medical treatment for CHF with reduced ejection fraction - patient is already on beta-steven. SGLT2i added yesterday. Unable to use ARNI and MRA at present due to relatively low blood pressure, and current need for AV malik blocking agents. - Recent MPI negative for ischemia. - patient reports excessive alcohol consumption. She was advised to stop alcohol use. Patient was brought eyes understanding. -outpatient follow-up after hospital discharge. Subjective Date/time seen: 07/15/25 09:13 Interval history: 07/14/2025- Patient sitting up in the bed. Reports improvement in dyspnea. No chest pain. No palpitations at this time. on telemetry, patient remains in atrial fibrillation with RVR with heart rate in 120s 140s. 07/15/2025-patient lying on the bed, denies any symptoms of chest pain or pratima rtness of breath. She was initiated on amiodarone IV yesterday. On telemetry, she has remained in AFib with RVR. Review of Systems Review of Systems: General: Negative for fever, chills, fatigue Psychological: Negative for anxiety, depression Ophthalmic: negative for loss of vision ENT: Negative for epistaxis, headaches Allergy and immunology: Negative for hives, nasal congestion Hematologic and lymphatic: Negative for overt bleeding problems Endocrine: Negative for hot flashes, palpitations Respiratory: Negative for cough, hemoptysis Cardiovascular: Negative for chest pain, Dyspnea improved Gastrointestinal: Negative for abdominal pain, nausea, vomiting, hematochezia Musculoskeletal: Negative for myalgia, joint pains Neurological: Negative for weakness Dermatological: Negative for rash, skin discoloration Exam Narrative: PHYSICAL EXAMINATION: GENERAL: Alert, oriented, no acute distress MENTAL STATUS: affect appropriate to mood EYES: Extraocular movements intact, no pallor EARS: External ears appear normal, hearing grossly normal NOSE: Normal and patent, no discharge MOUTH: Mucous membranes moist, tongue normal NECK: Supple, no JVD CHEST: Good respiratory effort, clear to auscultation HEART: tachycardia, irregularly irregular rhythm ABDOMEN: Soft, nontender NEUROLOGICAL: Alert, oriented, normal speech, no gross motor deficits MUSCULOSKELETAL: No major deformity, no amputation EXTREMITIES: trace pedal edema, no clubbing, no cyanosis SKIN: no rash on the exposed area, no cyanosis PSYCHIATRIC: Normal mood, appropriate affect Objective Data Vital Signs Vital Signs: Vital Signs - 24 hr 07/14/25 09:29 07/14/25 09:35 07/14/25 09:42 Temperature Pulse Rate 150 H 142 H 142 H Respiratory Rate Blood Pressure Pulse Oximetry Oxygen Delivery Room Air 07/14/25 10:00 07/14/25 10:12 07/14/25 10:28 Temperature Pulse Rate 116 H 147 H 143 H Respiratory Rate Blood Pressure 117/64 117/64 Pulse Oximetry Oxygen Delivery 07/14/25 11:51 07/14/25 12:00 07/14/25 12:00 Temperature 36.6 C Pulse Rate 123 H 125 H 122 H Respiratory Rate 16 Blood Pressure 109/81 Pulse Oximetry 96 Oxygen Delivery Room Air 07/14/25 12:00 07/14/25 13:53 07/14/25 14:00 Temperature 36.8 C Pulse Rate 125 H 125 H 123 H Respiratory Rate 20 Blood Pressure 109/81 106/81 106/81 Pulse Oximetry 95 Oxygen Delivery 07/14/25 14:03 07/14/25 15:48 07/14/25 16:00 Temperature 36.5 C Pulse Rate 114 H 129 H 116 H Respiratory Rate 20 Blood Pressure 115/71 Pulse Oximetry 96 Oxygen Delivery Room Air 07/14/25 16:00 07/14/25 16:06 07/14/25 17:01 Temperature Pulse Rate 136 H 136 H 143 H Respiratory Rate Blood Pressure 115/71 Pulse Oximetry Oxygen Delivery 07/14/25 18:00 07/14/25 18:21 07/14/25 19:22 Temperature Pulse Rate 126 H 145 H 140 H Respiratory Rate Blood Pressure 114/81 125/67 Pulse Oximetry Oxygen Delivery 07/14/25 19:22 07/14/25 19:34 07/14/25 20:00 Temperature 36.6 C Pulse Rate 140 H 140 H 140 H Respiratory Rate 21 H 21 H Blood Pressure 125/67 125/67 Pulse Oximetry 93 93 Oxygen Delivery Room Air 07/14/25 20:00 07/14/25 20:00 07/14/25 21:31 Temperature Pulse Rate 140 H 133 H Respiratory Rate Blood Pressure 125/67 Pulse Oximetry 95 Oxygen Delivery Room Air 07/14/25 22:00 07/14/25 22:00 07/14/25 22:00 Temperature Pulse Rate 134 H 134 H 134 H Respiratory Rate Blood Pressure 114/84 114/84 Pulse Oximetry Oxygen Delivery 07/15/25 00:00 07/15/25 00:00 07/15/25 00:00 Temperature 36.3 C L Pulse Rate 131 H 131 H 131 H Respiratory Rate 19 19 Blood Pressure 113/79 113/79 Pulse Oximetry 94 94 Oxygen Delivery Room Air 07/15/25 00:00 07/15/25 02:00 07/15/25 02:00 Temperature Pulse Rate 124 H 125 H 125 H Respiratory Rate Blood Pressure 100/64 100/64 Pulse Oximetry Oxygen Delivery 07/15/25 02:00 07/15/25 03:37 07/15/25 03:49 Temperature 36.6 C Pulse Rate 125 H 128 H 128 H Respiratory Rate 18 18 Blood Pressure 106/83 Pulse Oximetry 95 95 Oxygen Delivery Room Air 07/15/25 03:49 07/15/25 04:00 07/15/25 05:36 Temperature Pulse Rate 128 H 123 H 116 H Respiratory Rate Blood Pressure 106/83 Pulse Oximetry Oxygen Delivery 07/15/25 05:45 07/15/25 05:45 07/15/25 05:45 Temperature Pulse Rate 124 H 124 H 124 H Respiratory Rate Blood Pressure 108/71 108/71 108/71 Pulse Oximetry Oxygen Delivery 07/15/25 07:25 07/15/25 08:07 Temperature 36.6 C Pulse Rate 134 H 137 H Respiratory Rate 12 Blood Pressure 111/77 Pulse Oximetry 95 Oxygen Delivery Intake/Output Intake/Output: Intake & Output 07/12/25 07/13/25 07/14/25 07/15/25 23:59 23:59 23:59 23:59 Intake Total 1012.8 1122.0 1566.0 335.0 Output Total 802 2000 260 Balance 1012.8 320.0 -434.0 75.0 Meds/Results Medications: Active Medications Generic Name Dose Route Start Last Admin Trade Name Freq PRN Reason Stop Dose Admin Empagliflozin 10 mg 07/14/25 09:25 07/15/25 08:08 Empagliflozin 10 Mg Tablet PO 10 mg DAILY JASVIR Administration Folic Acid 1 mg 07/12/25 22:50 07/15/25 08:08 Folic Acid 1 Mg Tablet PO 1 mg DAILY JASVIR Administration Furosemide 20 mg 07/14/25 09:00 07/15/25 08:08 Furosemide 20 Mg Tablet PO 20 mg DAILY JASVIR Administration Amiodarone HCl/Dextrose 360 mg in 200 mls @ 16.667 mls/hr 07/14/25 15:40 07/15/25 05:45 Nexterone 360 Mg/D5w 200 Ml IV CONT 0.5 mg/min .Q12H JASVIR 16.67 mls/hr 0.5 MG/MIN Administration Metoprolol Succinate 50 mg 07/13/25 10:35 07/15/25 08:07 Metoprolol Succinate Ext Rel 50 Mg Tabcr PO 50 mg QAM JASVIR Administration Multivitamins Therapeutic 1 tablet 07/13/25 09:00 07/15/25 08:08 Multivitamins Therapeutic Tab (*Bkc) PO 1 tablet QAM JASVIR Administration Ondansetron HCl 4 mg 07/12/25 20:09 07/14/25 17:02 Ondansetron Inj 4 Mg/2 Ml Vial IV PUSH 4 mg Q4H PRN Administration Nausea Pantoprazole Sodium 40 mg 07/13/25 09:00 07/15/25 08:08 Pantoprazole 40 Mg Tablet PO 40 mg QAM JASVIR Administration Perflutren Lipid Microsphere 0 ml 07/12/25 19:58 Perflutren Lipid Microspheres 1.5 Ml Vial Diluted To 10 Ml Total Volume IV PUSH 07/15/25 19:59 ONCE PRN adequate visualization Protocol Rivaroxaban 20 mg 07/13/25 17:00 07/14/25 17:02 Rivaroxaban 20 Mg Tablet PO 20 mg DAILY@1700 JASVIR Administration Thiamine HCl 100 mg 07/12/25 22:50 07/15/25 08:08 Thiamine Hcl 100 Mg Tablet PO 100 mg QAM JASVIR Administration Radiology Results: ITS Impressions Chest X-Ray 07/12/25 17:10 IMPRESSION: Cardiomegaly with pulmonary edema suggestive of congestive heart failure. Chest CTA 07/12/25 19:01 IMPRESSION: There is no pulmonary embolism, aortic dissection, pericardial fluid.. Moderate right pleural effusion and small left pleural effusion with groundglass opacity bilaterally suggestive of pulmonary edema. Aneurysmal dilatation of the ascending aorta measuring [address] scans at this facility are performed using low dose modulation techniques as appropriate to perform exam including the following: automated exposure control; use of iterative reconstruction technique; adjustment of the mA and/or kV according to patient size (this includes techniques or standardized protocols for targeted exams where dose is matched to indication/reason for exam). Labs Labs: Laboratory Results - last 24 hr 07/15/25 04:09 Sodium 134 L Potassium 4.2 Chloride 107 Carbon Dioxide 19 L Anion Gap 8 BUN 15 Creatinine 0.76 Estim Creat Clear Calc 67 Estimated GFR > 60 Glucose 105 Calcium 8.9 Magnesium 2.3
--- NOTE | 2025-07-15 12:50 | P.PNIM_ITS ---
Progress Note: A&P Assessment and Plan (1) Atrial fibrillation with rapid ventricular response: Code(s): I48.91 - Unspecified atrial fibrillation Status: Acute Plan AFib with RVR Heart failure reduced ejection fraction -new onset, unclear etiology. Atrial fibrillation is listed on medical history, may not be new -TSH within normal limits, will replace electrolytes as needed potassium greater than 4, magnesium greater than 2 -potassium 4.2, replacing as needed -mag 2.3, replacing as needed -appreciate cardiology consultation: Recommendation p.o. metoprolol, anticoagulation Xarelto, diuresis with Lasix 20 mg. Patient heart rate not under control with the metoprolol and amiodarone drip, plan for KATINA cardioversion tomorrow -echocardiogram 07/13: EF 30-35%, indeterminate diastolic function -CHADS2 Vasc 3, started on xarelto -continue Jardiance for the low EF Chronic conditions -history of alcohol use: Will monitor with CIWA protocol, patient drinks 6-8 alcoholic drinks 2-3 times weekly -GERD: Omeprazole -hypertension: Held home losartan, hydrochlorothiazide while we start rate controlling medications -AAA: Monitor outpatient Diet: Heart healthy, NPO midnight for KATINA cardioversion tomorrow DVT prophylaxis: continue Xarelto Code status: DNR Disposition: Home in 2-3 days, pending HR control Time Spent With Patient Time: 35 minutes Subjective Date/time seen: 07/15/25 12:50 Interval history: Patient seen examined. She is asymptomatic. Despite being on amiodarone drip heart rate still significant elevated 122 with blood pressure borderline at 96/72. She will likely need a cardioversion. Deferring to junior oracle dba. Plan for cardioversion tomorrow Review of Systems Review of Systems: 10 point ROS complete, negative other th an what is specified in HPI. All systems reviewed & are unremarkable except as noted in HPI and below Exam Narrative: - GENERAL: Pleasant woman in No acute d istress. Well-nourished. - EYES: EOMI. Anicteric. - HENT: Moist mucous membranes. Hearing aids - LUNGS: Clear to auscultation bilateral ly, no wheezing, rhonchi, or rales. - CARDIOVASCULAR: Tachycardic, irregula r - ABDOMEN: Soft, non-tender and non-dist ended. No palpable masses. - EXTREMITIES: No peripheral edema. Xuan pheral pulses 2+. - NEUROLOGIC: No focal neurological defi cits. CN II-XII grossly intact. - PSYCHIATRIC: Awake, Alert and oriented x 3. Appropriate mood and affect. - SKIN: No rashes or lesions. Warm. - LYMPH: No cervical lymphadenopathy. Objective Data Vital Signs Vital Signs: Vital Signs - 24 hr 07/14/25 13:53 07/14/25 14:00 07/14/25 14:03 Temperature 36.8 C Pulse Rate 125 H 123 H 114 H Respiratory Rate 20 Blood Pressure 106/81 106/81 Pulse Oximetry 95 Oxygen Delivery 07/14/25 15:48 07/14/25 16:00 07/14/25 16:00 Temperature 36.5 C Pulse Rate 129 H 116 H 136 H Respiratory Rate 20 Blood Pressure 115/71 115/71 Pulse Oximetry 96 Oxygen Delivery Room Air 07/14/25 16:06 07/14/25 17:01 07/14/25 18:00 Temperature Pulse Rate 136 H 143 H 126 H Respiratory Rate Blood Pressure 114/81 Pulse Oximetry Oxygen Delivery 07/14/25 18:21 07/14/25 19:22 07/14/25 19:22 Temperature Pulse Rate 145 H 140 H 140 H Respiratory Rate Blood Pressure 125/67 125/67 Pulse Oximetry Oxygen Delivery 07/14/25 19:34 07/14/25 20:00 07/14/25 20:00 Temperature 36.6 C Pulse Rate 140 H 140 H 140 H Respiratory Rate 21 H 21 H Blood Pressure 125/67 125/67 Pulse Oximetry 93 93 Oxygen Delivery Room Air 07/14/25 20:00 07/14/25 21:31 07/14/25 22:00 Temperature Pulse Rate 133 H 134 H Respiratory Rate Blood Pressure 114/84 Pulse Oximetry 95 Oxygen Delivery Room Air 07/14/25 22:00 07/14/25 22:00 07/15/25 00:00 Temperature 36.3 C L Pulse Rate 134 H 134 H 131 H Respiratory Rate 19 Blood Pressure 114/84 113/79 Pulse Oximetry 94 Oxygen Delivery 07/15/25 00:00 07/15/25 00:00 07/15/25 00:00 Temperature Pulse Rate 131 H 131 H 124 H Respiratory Rate 19 Blood Pressure 113/79 Pulse Oximetry 94 Oxygen Delivery Room Air 07/15/25 02:00 07/15/25 02:00 07/15/25 02:00 Temperature Pulse Rate 125 H 125 H 125 H Respiratory Rate Blood Pressure 100/64 100/64 Pulse Oximetry Oxygen Delivery 07/15/25 03:37 07/15/25 03:49 07/15/25 03:49 Temperature 36.6 C Pulse Rate 128 H 128 H 128 H Respiratory Rate 18 18 Blood Pressure 106/83 106/83 Pulse Oximetry 95 95 Oxygen Delivery Room Air 07/15/25 04:00 07/15/25 05:36 07/15/25 05:45 Temperature Pulse Rate 123 H 116 H 124 H Respiratory Rate Blood Pressure 108/71 Pulse Oximetry Oxygen Delivery 07/15/25 05:45 07/15/25 05:45 07/15/25 07:25 Temperature 36.6 C Pulse Rate 124 H 124 H 134 H Respiratory Rate 12 Blood Pressure 108/71 108/71 111/77 Pulse Oximetry 95 Oxygen Delivery 07/15/25 08:00 07/15/25 08:07 07/15/25 09:55 Temperature Pulse Rate 126 H 137 H 137 H Respiratory Rate Blood Pressure 113/90 Pulse Oximetry Oxygen Delivery 07/15/25 10:00 07/15/25 11:40 Temperature 36.7 C Pulse Rate 135 H 122 H Respiratory Rate 14 Blood Pressure 96/72 L Pulse Oximetry 97 Oxygen Delivery Intake/Output Intake/Output: Intake & Output 07/12/25 07/13/25 07/14/25 07/15/25 23:59 23:59 23:59 23:59 Intake Total 1012.8 1122.0 1566.0 335.0 Output Total 802 2000 960 Balance 1012.8 320.0 -434.0 -625.0 Meds/Results Medications: Active Medications Generic Name Dose Route Start Last Admin Trade Name Freq PRN Reason Stop Dose Admin Empagliflozin 10 mg 07/14/25 09:25 07/15/25 08:08 Empagliflozin 10 Mg Tablet PO 10 mg DAILY JASVIR Administration Folic Acid 1 mg 07/12/25 22:50 07/15/25 08:08 Folic Acid 1 Mg Tablet PO 1 mg DAILY AJSVIR Administration Furosemide 20 mg 07/14/25 09:00 07/15/25 08:08 Furosemide 20 Mg Tablet PO 20 mg DAILY JASVIR Administration Amiodarone HCl/Dextrose 360 mg in 200 mls @ 16.667 mls/hr 07/14/25 15:40 07/15/25 05:45 Nexterone 360 Mg/D5w 200 Ml IV CONT 0.5 mg/min .Q12H JASVIR 16.67 mls/hr 0.5 MG/MIN Administration Metoprolol Succinate 50 mg 07/13/25 10:35 07/15/25 08:07 Metoprolol Succinate Ext Rel 50 Mg Tabcr PO 50 mg QAM [facility] Administration Multivitamins Therapeutic 1 tablet 07/13/25 09:00 07/15/25 08:08 Multivitamins Therapeutic Tab (*Bkc) PO 1 tablet QAM [facility] Administration Ondansetron HCl 4 mg 07/12/25 20:09 07/14/25 17:02 Ondansetron Inj 4 Mg/2 Ml Vial IV PUSH 4 mg Q4H PRN Administration Nausea Pantoprazole Sodium 40 mg 07/13/25 09:00 07/15/25 08:08 Pantoprazole 40 Mg Tablet PO 40 mg QAM [facility] Administration Perflutren Lipid Microsphere 0 ml 07/12/25 19:58 Perflutren Lipid Microspheres 1.5 Ml Vial Diluted To 10 Ml Total Volume IV PUSH 07/15/25 19:59 ONCE PRN adequate visualization Protocol Rivaroxaban 20 mg 07/13/25 17:00 07/14/25 17:02 Rivaroxaban 20 Mg Tablet PO 20 mg DAILY@1700 JASVIR Administration Thiamine HCl 100 mg 07/12/25 22:50 07/15/25 08:08 Thiamine Hcl 100 Mg Tablet PO 100 mg QAM [facility] Administration Radiology Results: ITS Impressions Chest X-Ray 07/12/25 17:10 IMPRESSION: Cardiomegaly with pulmonary edema suggestive of congestive heart failure. Chest CTA 07/12/25 19:01 IMPRESSION: There is no pulmonary embolism, aortic dissection, pericardial fluid.. Moderate right pleural effusion and small left pleural effusion with groundglass opacity bilaterally suggestive of pulmonary edema. Aneurysmal dilatation of the ascending aorta measuring [address] scans at this facility are performed using low dose modulation techniques as appropriate to perform exam including the following: automated exposure control; use of iterative reconstruction technique; adjustment of the mA and/or kV according to patient size (this includes techniques or standardized protocols for targeted exams where dose is matched to indication/reason for exam). Labs Labs: Laboratory Results - last 24 hr 07/15/25 04:09 Sodium 134 L Potassium 4.2 Chloride 107 Carbon Dioxide 19 L Anion Gap 8 BUN 15 Creatinine 0.76 Estim Creat Clear Calc 67 Estimated GFR > 60 Glucose 105 Calcium 8.9 Magnesium 2.3
[2025-07-15] MEDS: RIVAROXABAN 20 MG TABLET PO (17:16)
[2025-07-16] VITALS (19 sets, daily range): BP systolic 97–124; BP diastolic 64–84; PULSE 67–150; RESP 14–25; TEMP 36.1–36.6; O2SAT 94–98
--- NOTE | 2025-07-16 | ECHO_ITS ---
Patient Info Name: Merced Rodriguez Age: 69 years : 1955 Gender: Female Ht: 67 in Wt: 189 lbs BSA: 2.04 m2 HR: 94 bpm BP: 122 / 83 mmHg Heart Rhythm: Atrial Fibrillation Technical Quality: Good Exam Date: 07/16/2025 10:46 AM Patient Status: I Admit Date: 07/14/2025 Exam Type: CA echo transesophageal Complete two-dimensional, color flow and Doppler transesophageal echocardiogram is performed with contrast to opacify the left ventrical and to improve the deliniation of the left ventrical endocarial boarders. Staff Referring Physician: [facility] Physical Therapist: Andi Burns III Attending Provider: Floresita Nevarez Contrast/Agitated Saline Contrast/Ag. Saline: Definity Amount: 2.00 ml Administered By: Adam Alegre IV Access: Yes IV Access Condition: patent with no signs of infiltration Complications There were no complication prior to, during or in recovery from the transesophageal echocardiogram. Medications Sedation provided by anesthesia team. The posterior pharynx was sprayed with Cetacaine spray. Procedure Details The patient arrived in a fasting state after obtaining informed consent. The transesophageal probe was passed into the posterior pharynx, mid-esophagus, and distal esophagus. Imaging was performed at multiple levels. The patient tolerated the procedure well and there were no complications. The patient was transferred out of the examination area in satisfactory condition. Left Ventricle The left ventricle is normal in size with moderately reduced systolic function. Right Ventricle The right ventricle is normal in size with normal systolic function. Left Atria The left atrium is dilated. Right Atria The right atrium is dilated. Atrial Septum The atrial septum is intact by color Doppler. Atrial Appendage There is spontaneous contrast in the left atrial appendage suggesting low-flow. Definity contrast was used to better assess the left atrial appendage. There is no left atrial appendage thrombus. Aortic Valve The aortic valve is trileaflet and opens well. There is trace aortic regurgitation. Pulmonic Valve The pulmonic valve is normal. There is trace pulmonic valve regurgitation. Mitral Valve The mitral valve is normal. There is trace mitral regurgitation. Tricuspid Valve The tricuspid valve is normal. There is mild tricuspid regurgitation. Pericardium/Pleural Pericardium is normal in appearance with no evidence for significant pericardial effusion. Aorta There is mild atherosclerotic plaquing in the visualized portions of the aorta. Report Signatures
[2025-07-16 04:07] LABS: Anion Gap 6 mmol/L (4-12); Blood Urea Nitrogen 17 mg/dL (7-17); Calcium 8.6 mg/dL (8.4-10.2); Carbon Dioxide 26 mmol/L (22-30); Chloride 102 mmol/L (98-107); Estimated CRCL calculation 63 ml/min; Estimated Glomerular Filt Rate > 60; Glucose 93 mg/dL (65-110); Magnesium 2.2 mg/dL (1.6-2.3); Potassium 3.6 mmol/L (3.4-5.0); Sodium 134 mmol/L (137-145)
[2025-07-16] MEDS: FOLIC ACID 1 MG TABLET PO (07:59)
[2025-07-16] MEDS: PANTOPRAZOLE 40 MG TABLET PO (08:00)
[2025-07-16] MEDS: METOPROLOL SUCCINATE EXT REL 50 MG TABCR PO (08:00)
[2025-07-16] MEDS: EMPAGLIFLOZIN 10 MG TABLET PO (08:01)
[2025-07-16] MEDS: THIAMINE HCL 100 MG TABLET PO (08:01)
[2025-07-16] MEDS: MULTIVITAMINS THERAPEUTIC TAB (*BKC) 1 TABLET PO (08:01)
--- NOTE | 2025-07-16 08:36 | ECG_ITS ---
Test Date: 2025-07-16 09:38:02 Measurements Intervals [place] Rate: 128 P: 0 AK: 0 QRS: 71 QRSD: 98 T: 192 QT: 369 QTc: 539 Interpretive Statements ATRIAL FIBRILLATION WITH RAPID VENTRICULAR RESPONSE WITH ABERRANT CONDUCTION OR VENTRICULAR PREMATURE COMPLEXES LOW QRS VOLTAGE ANTEROSEPTAL MYOCARDIAL INFARCTION , OF INDETERMINATE AGE T-WAVE ABNORMALITY, CONSIDER ISCHEMIA Electronically Signed On 07-16-2025 11:25:28 GUIDE TRAVEL by Arnulfo Aguilar D.O
--- NOTE | 2025-07-16 10:39 | PC.NURSE ---
patient taken to chest pain center for KATINA
--- NOTE | 2025-07-16 10:51 | WPDANESEPPF ---
Anes - Initial Pre Proc Eval Procedure: Operation Date: 07/16/25 10:45 Proposed Procedures p Trans Esophageal Echo - Adam Nelson MD s Electrical Cardioversion - Adam Nelson MD Date/Time: 07/16/25 10:51 Surgeon: Floresita Nevarez MD Pre Op Diagnosis: AFib with RVR, CHF Patient Data Age: 69 Gender: F Height: 1.7 m Weight: 86.1 kg Last Vital Signs Temp 97.4 F L 07/16/25 08:00 Pulse 150 H 07/16/25 10:00 Resp 24 H 07/16/25 08:00 BP 122/83 07/16/25 10:00 Pulse Ox 94 07/16/25 08:00 O2 Del Method Room Air 07/16/25 08:00 Allergies Allergy/AdvReac Type Severity Reaction Status Date / Time methylprednisolone Allergy Intermediate Hypotension Verified 07/12/25 22:28 Home Medications ?Medication ?Instructions ?Recorded ?Confirmed ?Type aspirin 81 mg tablet 81 mg PO DAILY 03/20/25 07/12/25 History losartan 50 mg-hydrochlorothiazide 1 tablet PO DAILY 90 days #90 tabs 03/20/25 07/12/25 Rx 12.5 mg tablet omeprazole 20 mg tablet,delayed 20 mg PO DAILY 03/20/25 07/12/25 History release Laboratory Tests 07/16/25 03:25 Sodium 134 L mmol/L (137-145) Potassium 3.6 mmol/L (3.4-5.0) Chloride 102 mmol/L (98-107) Carbon Dioxide 26 mmol/L (22-30) Anion Gap 6 mmol/L (4-12) BUN 17 mg/dL (7-17) Creatinine 0.80 mg/dL (0.7-1.0) Estim Creat Clear Calc 63 ml/min Estimated GFR > 60 (59 - ) Glucose 93 mg/dL (65-110) Calcium 8.6 mg/dL (8.4-10.2) Magnesium 2.2 mg/dL (1.6-2.3) Patient hx anesthesia problems: none Family hx anesthesia problems: none Results Review: All pre-operative results and documents have been reviewed as part of the pre-operative evaluation. [facility] Past Medical History Medical History Alcohol use Marijuana use Ascending aortic aneurysm Atrial fibrillation Difficulty swallowing Chest pain Hypertension GERD (gastroesophageal reflux disease) Surgical History Surgical History History of total knee arthroplasty (2012) Bilateral 2012 History of foot surgery (1988) Bilateral - 1988 History of tubal ligation (1991) H/O endoscopy Family History Family History Father Hypertension Lung cancer Mother , Age 51 Ovarian cancer Social History Social History Smoking packs per day: 0.5 Smoking cigarettes per day: 10.0 Years smoked: 2 Smoking pack-years: 1.00 Smoking status: Former smoker Tobacco type: cigarettes Alcohol intake: current Drinks per week: 32 Alcohol use details: Beer a couple of nights per week. Substance use: current Substance use type: marijuana Other substance usage details: smokes Do You Feel Safe in your Home?: Yes Lack of Transportation: No Lack of Food: Never True Current Housing: I Have Housing Concerned About Future Housing: No Difficulty Paying Gas/Electric Bills: No Difficulty Paying for Meds: No Currently Unemployed: No Education: High School Diploma/GED Difficulty w/ Childcare or Family Care: No Living arrangements: alone Occupation/Education: occupation Gender identity (if verbalized by the patient): Female Spiritual care concerns: No Anes - Eval Final PreProcedure Day of Procedure 07/16/25 10:51 Patient weight: normal Lungs: normal air movement Airway: Mallampati scale class II and special considerations (Missing R lower tooth. ) Neurological: alert and oriented Last oral intake: >/= 8 hours ASA classification: III Emergent: no Anesthetic plan: proceed Anesthesia type and monitoring: general GIVS and standard monitoring Results Review: All pre-operative results and documents have been reviewed as part of the pre-operative evaluation. HTN, now w afib w RVR, on amio without conversion. Now for KATINA/CV. Stress test 04/23 w nml LVEF, more recently LVEF 30% w afib w RVR. Pt admits to daily cannabis. ETOH per social hx. Informed Consent: The patient's anesthetic plan and its attendant risks and benefits were discussed with the patient/family/POA. Questions were solicited and answers provided to the satisfaction of the patient/family/POA.
--- NOTE | 2025-07-16 11:07 | ECG_ITS ---
Test Date: 2025-07-16 11:07:06 Measurements Intervals [place] Rate: 75 P: 73 GA: 155 QRS: 50 QRSD: 97 T: 191 QT: 466 QTc: 524 Interpretive Statements SINUS RHYTHM LOW QRS VOLTAGE IN EXTREMITY LEADS ST DEVIATION AND T-WAVE ABNORMALITY, CONSIDER ISCHEMIA Electronically Signed On 07-16-2025 11:27:19 [employer] by Arnulfo Aguilar D.O
--- NOTE | 2025-07-16 11:14 | WPDHPUPDATE1 ---
History and Physical Update Update Date/Time: 07/16/25 10:14 History and Physical has been reviewed, including an updated exam of the patient. There are NO changes in the patient's condition. Risks, benefits, and alternatives have been discussed and questions answered. Patient agrees to proceed with procedure.
--- NOTE | 2025-07-16 11:31 | IVDEFINITY ---
Prior to administration of IV Definity the patient was educated on the risks and benefits of the imaging enhancing agent including potential adverse side effects. The patient verbalized understanding. Allergies were verified. No exclusion criteria were identified and at least one of the following inclusion criteria were met: 1) physician request, 2) patient technically difficult to image (per the [place] [employer] guidelines of two or more segments not discernable within the apical view), or 3) questionable left ventricular function. ?
[2025-07-16] MEDS: PERFLUTREN LIPID MICROSPHERES 1.5 ML VIAL DILUTED TO 10 ML TOTAL VOLUME IV PUSH (11:46)
--- NOTE | 2025-07-16 11:47 | WPDCARDVER ---
Cardioversion Cardioversion Date of procedure: 07/16/25 Conclusion: Date of procedure: 07/16/25 Procedure: Synchronized cardioversion Pre-op diagnosis: Paroxysmal atrial fibrillation Post-op diagnosis: Same Indications: Paroxysmal atrial fibrillation with rapid ventricular rates and acute systolic heart failure Description of procedure: After confirming no left atrial appendage thrombus on transesophageal echocardiogram, synchronized cardioversion was performed with 200 joule and subsequent successful restorationist of sinus rhythm. Sedation: Please refer to anesthesia notes. Findings: Successful restorationist of sinus rhythm with synchronized cardioversion of 200 joule Conclusion: Sinus rhythm Can discontinue amiodarone drip Start amiodarone oral 200 mg p.o. b.i.d. Start losartan 25 mg p.o. daily Discontinue hydrochlorothiazide Continue Xarelto 20 mg every evening with dinner Continue metoprolol succinate 50 mg p.o. daily and Jardiance 10 mg p.o. daily Continue Lasix 20mg PO daily The patient can be discharged to follow-up with Dr. Aguilar in clinic in 1-2 weeks for 7-14 day monitor to evaluate for atrial fibrillation burden and eventually repeat echo in 1-2 months
--- NOTE | 2025-07-16 13:22 | P.PNIM_ITS ---
Progress Note: A&P Assessment and Plan (1) Atrial fibrillation with rapid ventricular response: Code(s): I48.91 - Unspecified atrial fibrillation Status: Acute Plan AFib with RVR, now in NSR Heart failure reduced ejection fraction -new onset, unclear etiology. Atrial fibrillation is listed on medical history, may not be new -TSH within normal limits, will replace electrolytes as needed potassium greater than 4, magnesium greater than 2 -potassium 3.6, giving 40mEq KCL -mag 2.2, replacing as needed -appreciate cardiology consultation: Recommendation p.o. metoprolol, anticoagulation Xarelto, diuresis with Lasix 20 mg. Discontinue hydrochlorothiazide, start losartan 25mg daily and amiodarone 200 mg twice daily. Patient was successfully cardioverted on 07/16/25 -echocardiogram 07/13: EF 30-35%, indeterminate diastolic function -CHADS2 Vasc 3, started on xarelto -continue Jardiance for the low EF Chronic conditions -history of alcohol use: Will monitor with CIWA protocol, patient drinks 6-8 alcoholic drinks 2-3 times weekly -GERD: Omeprazole -hypertension: resume home losartan, stop hydrochlorothiazide, now on metopr olol and lasix -AAA: Monitor outpatient. only 4cm now, no need for surgery at this time Diet: Heart healthy DVT prophylaxis: continue Xarelto Code status: DNR Disposition: Home tomorrow, downgrade to medical floor Time Spent With Patient Time: 35 minutes Subjective Date/time seen: 07/16/25 13:22 Interval history: Patient seen and examined. Patient was successfully cardioverted today. Recommendation from Cardiology is a change amiodarone to p.o. amiodarone 200 mg twice daily, adding losartan, stopping hydrochlorothiazide. She will continue Xarelto, metoprolol succinate, Jardiance, Lasix. Patient denies fever, chills, nausea vomiting, diarrhea. She feels well after cardioversion. She is nervous about the med changes. Will plan to monitor overnight and discharge in the morning. Will downgrade to medical floor. Review of Systems Review of Systems: 10 point ROS complete, negative other th an what is specified in HPI. Exam Narrative: - GENERAL: Pleasant woman in No acute d istress. Well-nourished. - EYES: EOMI. Anicteric. - HENT: Moist mucous membranes. Hearing aids - LUNGS: Clear to auscultation bilateral ly, no wheezing, rhonchi, or rales. - CARDIOVASCULAR: Regular in rhythm - ABDOMEN: Soft, non-tender and non-dist ended. No palpable masses. - EXTREMITIES: No peripheral edema. Xuan pheral pulses 2+. - NEUROLOGIC: No focal neurological defi cits. CN II-XII grossly intact. - PSYCHIATRIC: Awake, Alert and oriented x 3. Appropriate mood and affect. - SKIN: No rashes or lesions. Warm. - LYMPH: No cervical lymphadenopathy. Objective Data Vital Signs Vital Signs: Vital Signs - 24 hr 07/15/25 14:00 07/15/25 14:00 07/15/25 14:00 Temperature Pulse Rate 117 H 135 H 117 H Respiratory Rate Blood Pressure 106/75 106/75 Pulse Oximetry Oxygen Delivery Oxygen Flow Rate 07/15/25 16:00 07/15/25 16:00 07/15/25 16:00 Temperature 36.6 C Pulse Rate 123 H 123 H Respiratory Rate 16 Blood Pressure 110/64 110/64 Pulse Oximetry 94 Oxygen Delivery Room Air Oxygen Flow Rate 07/15/25 16:00 07/15/25 17:14 07/15/25 17:14 Temperature Pulse Rate 122 H 131 H 131 H Respiratory Rate Blood Pressure 106/62 106/62 Pulse Oximetry Oxygen Delivery Oxygen Flow Rate 07/15/25 18:00 07/15/25 18:00 07/15/25 18:09 Temperature Pulse Rate 126 H 122 H 122 H Respiratory Rate Blood Pressure 110/66 110/66 Pulse Oximetry Oxygen Delivery Oxygen Flow Rate 07/15/25 18:42 07/15/25 19:51 07/15/25 20:00 Temperature 36.7 C Pulse Rate 128 H 130 H 151 H Respiratory Rate 22 H Blood Pressure 102/65 Pulse Oximetry 96 Oxygen Delivery Oxygen Flow Rate 07/15/25 20:00 07/15/25 20:00 07/15/25 21:54 Temperature Pulse Rate 151 H 107 H Respiratory Rate Blood Pressure Pulse Oximetry Oxygen Delivery Room Air Oxygen Flow Rate 07/15/25 21:54 07/15/25 22:00 07/16/25 00:00 Temperature Pulse Rate 121 H Respiratory Rate Blood Pressure 103/80 Pulse Oximetry Oxygen Delivery Room Air Oxygen Flow Rate 07/16/25 00:00 07/16/25 00:00 07/16/25 00:00 Temperature 36.3 C L Pulse Rate 119 H 131 H 126 H Respiratory Rate 20 Blood Pressure 101/74 Pulse Oximetry 94 Oxygen Delivery Oxygen Flow Rate 07/16/25 02:00 07/16/25 02:00 07/16/25 02:00 Temperature Pulse Rate 136 H 126 H 126 H Respiratory Rate Blood Pressure 101/65 Pulse Oximetry Oxygen Delivery Oxygen Flow Rate 07/16/25 03:59 07/16/25 04:00 07/16/25 04:00 Temperature 36.4 C L Pulse Rate 136 H 110 H Respiratory Rate 22 H Blood Pressure 104/66 Pulse Oximetry 94 Oxygen Delivery Room Air Oxygen Flow Rate 07/16/25 04:00 07/16/25 04:02 07/16/25 04:02 Temperature Pulse Rate 141 H 115 H 115 H Respiratory Rate Blood Pressure Pulse Oximetry Oxygen Delivery Oxygen Flow Rate 07/16/25 05:22 07/16/25 05:50 07/16/25 06:00 Temperature Pulse Rate 111 H 111 H 128 H Respiratory Rate Blood Pressure 104/79 Pulse Oximetry Oxygen Delivery Oxygen Flow Rate 07/16/25 08:00 07/16/25 08:00 07/16/25 08:00 Temperature 36.3 C L Pulse Rate 126 H 83 Respiratory Rate 24 H Blood Pressure 114/71 Pulse Oximetry 94 Oxygen Delivery Room Air Oxygen Flow Rate 07/16/25 08:00 07/16/25 08:00 07/16/25 10:00 Temperature Pulse Rate 113 H 113 H 150 H Respiratory Rate Blood Pressure 114/71 124/83 Pulse Oximetry Oxygen Delivery Oxygen Flow Rate 07/16/25 10:00 07/16/25 11:12 07/16/25 11:15 Temperature Pulse Rate 70 69 Respiratory Rate 20 21 H Blood Pressure 122/83 97/74 L 107/75 Pulse Oximetry 94 98 Oxygen Delivery Nasal Cannula Oxygen Flow Rate 4.0 07/16/25 11:20 07/16/25 11:30 07/16/25 11:30 Temperature Pulse Rate 70 71 76 Respiratory Rate 25 H 17 Blood Pressure 100/70 109/84 Pulse Oximetry 98 95 Oxygen Delivery Room Air Room Air Oxygen Flow Rate 07/16/25 11:45 07/16/25 12:00 Temperature 36.6 C Pulse Rate 67 79 Respiratory Rate 14 18 Blood Pressure 109/75 112/80 Pulse Oximetry 95 96 Oxygen Delivery Room Air Oxygen Flow Rate Intake/Output Intake/Output: Intake & Output 07/13/25 07/14/25 07/15/25 07/16/25 23:59 23:59 23:59 23:59 Intake Total 1122.0 1566.0 1177.8 384.9 Output Total 802 2000 1760 790 Balance 320.0 -434.0 -582.2 -405.1 Meds/Results Medications: Active Medications Generic Name Dose Route Start Last Admin Trade Name Freq PRN Reason Stop Dose Admin Amiodarone HCl 200 mg 07/16/25 21:00 Amiodarone Hcl 200 Mg Tablet PO Q12HR [facility] Empagliflozin 10 mg 07/14/25 09:25 07/16/25 08:01 Empagliflozin 10 Mg Tablet PO 10 mg DAILY [facility] Administration Folic Acid 1 mg 07/12/25 22:50 07/16/25 07:59 Folic Acid 1 Mg Tablet PO 1 mg DAILY JASVIR Administration Furosemide 20 mg 07/14/25 09:00 07/16/25 08:01 Furosemide 20 Mg Tablet PO 20 mg DAILY [facility] Administration Losartan Potassium 25 mg 07/17/25 09:00 Losartan Potassium 25 Mg Tablet PO DAILY JASVIR Metoprolol Succinate 50 mg 07/13/25 10:35 07/16/25 08:00 Metoprolol Succinate Ext Rel 50 Mg Tabcr PO 50 mg QAM [facility] Administration Multivitamins Therapeutic 1 tablet 07/13/25 09:00 07/16/25 08:01 Multivitamins Therapeutic Tab (*Bkc) PO 1 tablet QAM [facility] Administration Ondansetron HCl 4 mg 07/12/25 20:09 07/14/25 17:02 Ondansetron Inj 4 Mg/2 Ml Vial IV PUSH 4 mg Q4H PRN Administration Nausea Pantoprazole Sodium 40 mg 07/13/25 09:00 07/16/25 08:00 Pantoprazole 40 Mg Tablet PO 40 mg QAM [facility] Administration Rivaroxaban 20 mg 07/13/25 17:00 07/15/25 17:16 Rivaroxaban 20 Mg Tablet PO 20 mg DAILY@1700 JASVIR Administration Thiamine HCl 100 mg 07/12/25 22:50 07/16/25 08:01 Thiamine Hcl 100 Mg Tablet PO 100 mg QAM [facility] Administration Radiology Results: ITS Impressions Chest X-Ray 07/12/25 17:10 IMPRESSION: Cardiomegaly with pulmonary edema suggestive of congestive heart failure. Chest CTA 07/12/25 19:01 IMPRESSION: There is no pulmonary embolism, aortic dissection, pericardial fluid.. Moderate right pleural effusion and small left pleural effusion with groundglass opacity bilaterally suggestive of pulmonary edema. Aneurysmal dilatation of the ascending aorta measuring [address] scans at this facility are performed using low dose modulation techniques as appropriate to perform exam including the following: automated exposure control; use of iterative reconstruction technique; adjustment of the mA and/or kV according to patient size (this includes techniques or standardized protocols for targeted exams where dose is matched to indication/reason for exam). Labs Labs: Laboratory Results - last 24 hr 07/16/25 03:25 Sodium 134 L Potassium 3.6 Chloride 102 Carbon Dioxide 26 Anion Gap 6 BUN 17 Creatinine 0.80 Estim Creat Clear Calc 63 Estimated GFR > 60 Glucose 93 Calcium 8.6 Magnesium 2.2
[2025-07-16] MEDS: POTASSIUM CHLORIDE 20 MEQ ER TABLET 40 MEQ PO (13:27)
[2025-07-16] MEDS: FUROSEMIDE 20 MG TABLET PO (16:11)
[2025-07-16] MEDS: RIVAROXABAN 20 MG TABLET PO (16:15)
--- NOTE | 2025-07-16 17:33 | PC.NURSE ---
REPORT GIVEN TO MAGY WALLACE ON 3 MED SURG
--- NOTE | 2025-07-16 17:42 | PC.NURSE ---
PATIENT TAKEN VIA WHEELCHAIR TO ROOM 328, BELONGINGS WITH PATIENT, NO SIGNS OF DISTRESS, VITALS STABLE, VERBALIZES NEED FOR TRANSFER.
--- NOTE | 2025-07-16 17:55 | PC.NURSE ---
This patient, Merced Rodriguez, was received from [[facility] ] on 07/16/25 at 1756. Patient/family oriented to unit policies and routines
[2025-07-16] MEDS: AMIODARONE HCL 200 MG TABLET PO (20:52)
[2025-07-17 04:35] VITALS: BP 106/60; PULSE 76; RESP 18; TEMP 36.4; O2SAT 94
[2025-07-17 06:46] LABS: Anion Gap 5 mmol/L (4-12); Blood Urea Nitrogen 17 mg/dL (7-17); Calcium 8.4 mg/dL (8.4-10.2); Carbon Dioxide 27 mmol/L (22-30); Chloride 104 mmol/L (98-107); Estimated CRCL calculation 66 ml/min; Estimated Glomerular Filt Rate > 60; Glucose 84 mg/dL (65-110); Magnesium 2.3 mg/dL (1.6-2.3); Potassium 3.6 mmol/L (3.4-5.0); Sodium 136 mmol/L (137-145)
[2025-07-17 08:35] VITALS: PULSE 70; PULSE 78
[2025-07-17] MEDS: FUROSEMIDE 20 MG TABLET PO (08:35)
[2025-07-17] MEDS: AMIODARONE HCL 200 MG TABLET PO (08:35)
[2025-07-17] MEDS: EMPAGLIFLOZIN 10 MG TABLET PO (08:35)
[2025-07-17] MEDS: PANTOPRAZOLE 40 MG TABLET PO (08:35)
[2025-07-17] MEDS: METOPROLOL SUCCINATE EXT REL 50 MG TABCR PO (08:35)
[2025-07-17] MEDS: THIAMINE HCL 100 MG TABLET PO (08:35)
[2025-07-17] MEDS: FOLIC ACID 1 MG TABLET PO (08:35)
[2025-07-17] MEDS: MULTIVITAMINS THERAPEUTIC TAB (*BKC) 1 TABLET PO (08:36)
[2025-07-17] MEDS: LOSARTAN POTASSIUM 25 MG TABLET PO (08:36)
--- NOTE | 2025-07-17 13:22 | P.PNIM_ITS ---
Progress Note: A&P Assessment and Plan (1) Atrial fibrillation with rapid ventricular response: Code(s): I48.91 - Unspecified atrial fibrillation Status: Acute Plan AFib with RVR, now in NSR Heart failure reduced ejection fraction -new onset, unclear etiology. Atrial fibrillation is listed on medical history, may not be new -TSH within normal limits, will replace electrolytes as needed potassium greater than 4, magnesium greater than 2 -potassium 3.6, giving 40mEq KCL -mag 2.2, replacing as needed -appreciate cardiology consultation: Recommendation p.o. metoprolol, anticoagulation Xarelto, diuresis with Lasix 20 mg. Discontinue hydrochlorothiazide, start losartan 25mg daily and amiodarone 200 mg twice daily. Patient was successfully cardioverted on 07/16/25 -echocardiogram 07/13: EF 30-35%, indeterminate diastolic function -CHADS2 Vasc 3, started on xarelto -continue Jardiance for the low EF Chronic conditions -history of alcohol use: Will monitor with CIWA protocol, patient drinks 6-8 alcoholic drinks 2-3 times weekly -GERD: Omeprazole -hypertension: resume home losartan, stop hydrochlorothiazide, now on metopr olol and lasix -AAA: Monitor outpatient. only 4cm now, no need for surgery at this time Diet: Heart healthy DVT prophylaxis: continue Xarelto Code status: DNR Disposition: Home tomorrow, downgrade to medical floor Subjective Date/time seen: 07/17/25 13:22 Interval history: Patient seen and examined. Patient was successfully cardioverted today. Recommendation from Cardiology is a change amiodarone to p.o. amiodarone 200 mg twice daily, adding losartan, stopping hydrochlorothiazide. She will continue Xarelto, metoprolol succinate, Jardiance, Lasix. Patient denies fever, chills, nausea vomiting, diarrhea. She feels well after cardioversion. She is nervous about the med changes. Will plan to monitor overnight and discharge in the morning. Will downgrade to medical floor. Review of Systems Review of Systems: 10 point ROS complete, negative other th an what is specified in HPI. All systems reviewed & are unremarkable except as noted in HPI and below Exam Narrative: - GENERAL: Pleasant woman in No acute d istress. Well-nourished. - EYES: EOMI. Anicteric. - HENT: Moist mucous membranes. Hearing aids - LUNGS: Clear to auscultation bilateral ly, no wheezing, rhonchi, or rales. - CARDIOVASCULAR: Regular in rhythm - ABDOMEN: Soft, non-tender and non-dist ended. No palpable masses. - EXTREMITIES: No peripheral edema. Xuan pheral pulses 2+. - NEUROLOGIC: No focal neurological defi cits. CN II-XII grossly intact. - PSYCHIATRIC: Awake, Alert and oriented x 3. Appropriate mood and affect. - SKIN: No rashes or lesions. Warm. - LYMPH: No cervical lymphadenopathy. Const: General: comfortable and no acute distress Other: A&O x4 HENMT: Mouth: Yes moist mucous membranes Eyes: Pupils: Equal, round and reactive pupils present EOM: EOMs intact bilaterally Neck: Neck: supple Resp: Other: Right lower lung bhandari decreased breath sounds Cardio: Rate: tachycardic Rhythm: abnormal rhythm Heart sounds: no murmurs GI: Inspection: non-distended Auscultation: normal bowel sounds : External Female Exam: normal external appearance Neuro: Cranial nerves: Yes Equal, round and reactive pupils present Motor exam (neuro): 5/5 motor strength present throughout Sensory Exam: normal sensation Extrem: General: no edema Objective Data Vital Signs Vital Signs: Vital Signs - 24 hr 07/16/25 16:00 07/16/25 20:00 07/16/25 20:52 Temperature 97.9 F Pulse Rate 75 76 Respiratory Rate 18 Blood Pressure 112/68 Pulse Oximetry 97 Oxygen Delivery Room Air 07/16/25 20:59 07/17/25 04:35 07/17/25 08:35 Temperature 97.0 F L 97.5 F L Pulse Rate 75 76 70 Respiratory Rate 18 18 Blood Pressure 102/64 106/60 Pulse Oximetry 98 94 Oxygen Delivery 07/17/25 08:35 Temperature Pulse Rate 78 Respiratory Rate Blood Pressure Pulse Oximetry Oxygen Delivery Intake/Output Intake/Output: Intake & Output 07/14/25 07/15/25 07/16/25 07/17/25 23:59 23:59 23:59 23:59 Intake Total 1566.0 1177.8 934.9 480 Output Total 1999 1760 1240 Balance -434.0 -582.2 -305.1 480 Meds/Results Medications: Active Medications Generic Name Dose Route Start Last Admin Trade Name Freq PRN Reason Stop Dose Admin Amiodarone HCl 200 mg 07/16/25 21:00 07/17/25 08:35 Amiodarone Hcl 200 Mg Tablet PO 200 mg Q12HR [facility]AS[facility]IR Administration Empagliflozin 10 mg 07/14/25 09:25 07/17/25 08:35 Empagliflozin 10 Mg Tablet PO 10 mg DAILY JASVIR Administration Folic Acid 1 mg 07/12/25 22:50 07/17/25 08:35 Folic Acid 1 Mg Tablet PO 1 mg DAILY JASVIR Administration Furosemide 20 mg 07/14/25 09:00 07/17/25 08:35 Furosemide 20 Mg Tablet PO 20 mg DAILY AJSVIR Administration Losartan Potassium 25 mg 07/17/25 09:00 07/17/25 08:36 Losartan Potassium 25 Mg Tablet PO 25 mg DAILY JASVIR Administration Metoprolol Succinate 50 mg 07/13/25 10:35 07/17/25 08:35 Metoprolol Succinate Ext Rel 50 Mg Tabcr PO 50 mg QAM [facility] Administration Multivitamins Therapeutic 1 tablet 07/13/25 09:00 07/17/25 08:36 Multivitamins Therapeutic Tab (*Bkc) PO 1 tablet QAM [facility] Administration Ondansetron HCl 4 mg 07/12/25 20:09 07/14/25 17:02 Ondansetron Inj 4 Mg/2 Ml Vial IV PUSH 4 mg Q4H PRN Administration Nausea Pantoprazole Sodium 40 mg 07/13/25 09:00 07/17/25 08:35 Pantoprazole 40 Mg Tablet PO 40 mg QAM [facility] Administration Rivaroxaban 20 mg 07/13/25 17:00 07/16/25 16:15 Rivaroxaban 20 Mg Tablet PO 20 mg DAILY@1700 [facility] Administration Thiamine HCl 100 mg 07/12/25 22:50 07/17/25 08:35 Thiamine Hcl 100 Mg Tablet PO 100 mg QAM [facility] Administration Radiology Results: ITS Impressions Chest X-Ray 07/12/25 17:10 IMPRESSION: Cardiomegaly with pulmonary edema suggestive of congestive heart failure. Chest CTA 07/12/25 19:01 IMPRESSION: There is no pulmonary embolism, aortic dissection, pericardial fluid.. Moderate right pleural effusion and small left pleural effusion with groundglass opacity bilaterally suggestive of pulmonary edema. Aneurysmal dilatation of the ascending aorta measuring [address] scans at this facility are performed using low dose modulation techniques as appropriate to perform exam including the following: automated exposure control; use of iterative reconstruction technique; adjustment of the mA and/or kV according to patient size (this includes techniques or standardized protocols for targeted exams where dose is matched to indication/reason for exam). Labs Labs: Laboratory Results - last 24 hr 07/17/25 05:52 Sodium 136 L Potassium 3.6 Chloride 104 Carbon Dioxide 27 Anion Gap 5 BUN 17 Creatinine 0.76 Estim Creat Clear Calc 66 Estimated GFR > 60 Glucose 84 Calcium 8.4 Magnesium 2.3
--- NOTE | 2025-07-17 13:51 | P.DS_ITS ---
DS: Admitting Diagnosis Discharge Date 07/17/2025 Admitting Diagnosis Shortness of breath and palpitation DS: Discharge Diagnosis Discharge Diagnosis (1) Atrial fibrillation with rapid ventricular response: Code(s): I48.91 - Unspecified atrial fibrillation Status: Acute Plan AFib with RVR, now in NSR Heart failure reduced ejection fraction -new onset, unclear etiology. Atrial fibrillation is listed on medical history, may not be new -TSH within normal limits, will replace electrolytes as needed potassium greater than 4, magnesium greater than 2 -potassium 3.6, giving 40mEq KCL -mag 2.2, replacing as needed -appreciate cardiology consultation: Recommendation p.o. metoprolol, anticoagulation Xarelto, diuresis with Lasix 20 mg. Discontinue hydrochlorothiazide, start losartan 25mg daily and amiodarone 200 mg twice daily. Patient was successfully cardioverted on 07/16/25 -echocardiogram 07/13: EF 30-35%, indeterminate diastolic function -CHADS2 Vasc 3, started on xarelto -continue Jardiance for the low EF Chronic conditions -history of alcohol use: Will monitor with CIWA protocol, patient drinks 6-8 alcoholic drinks 2-3 times weekly -GERD: Omeprazole -hypertension: resume home losartan, stop hydrochlorothiazide, now on metoprolol and lasix -AAA: Monitor outpatient. only 4cm now, no need for surgery at this time Diet: Heart healthy DVT prophylaxis: continue Xarelto DS: Summary Hospital Course Hospital Course: 69-year-old female with PMH hypertension, GERD, marijuana use, alcohol use disorder, presents to [facility] ER on 07/12/2025 complaining of shortness of breath for a few weeks. In the past she has had intermittent chest pain/shortness of breath, she has been taking aspirin. However, she recently had a stress test with [facility] cardiology group in [place]. 04/09/2025 Lexiscan/nuclear stress without abno rmal findings. EF measured at 75%. On this occasion, she had no chest pain. She had a left foot surgery a few weeks prior, was given Solu-Medrol Dosepak for inflammation. Since then, she has had lower blood pressure and persistent shortness of breath. Unsure about her heart rate. She presented to her PCP to reports the symptoms and was told to go to the ER. She drove herself and currently has no shortness of breath. Denies fever, chest pain, syncope, nausea or vomiting, abdominal pain/diarrhea. She has not noticed leg swelling or weight gain. 6-8 alcoholic drinks 2-3 times per week. One mountain Dew per day. No tobacco/nicotine. Smokes marijuana. No history of acute bleeding events. It is reported in the ER her heart rate was in the 170s. EKG demonstrated AFib with RVR. No acute ST changes. She was given diltiazem 15 mg, 10 mg. Given 1 L normal saline bolus. Given metoprolol 5 mg IV x1. Then, start diltiazem GTT 10 milligrams/hour. Heart rate reduced to the 130s. Blood pressure low at 99/79 improving to 116/83. Cardiology consulted, further recommendations from the ER. WBC 7200, hemoglobin 14, potassium 3.4, replacing with KCl 40 mEq p.o.. Serum creatinine 0.71. INR 1.1. Mild transaminitis and elevated total bilirubin. BNP 4100, troponin negative x1. TSH 1.430. CTA chest negative for PE. Aneurysmal dilation of ascending aorta measuring 4 cm, moderate right pleural effusion, small left pleural effusion. Ground-glass opacities bilaterally. Subsequently, patient received Lasix 40 mg IV x1. I assumed care on the day of discharge. Patient underwent cardioversion yesterday 07/16. Patient currently in sinus rhythm. Patient started on amiodarone. Transesophageal echocardiography shows a reduced ejection fraction. GDMT the patient is already on beta-steven and a added SGLT2.Unable to use ARNI and MRA at present due to relatively low blood pressure.Recent MPI negative for ischemia.Patient reports excessive alcohol consumption. She was advised to stop alcohol use. Patient needs to follow-up with Cardiology and PCP within a week upon discharge. On the day of discharge, the patient was seen and examined. Vital signs were stable. Physical exam were stable and labs were reviewed at length. Discharge instructions, medications, and follow-up appointments were discussed with the patient at length and all day questions were answered. ER warnings were given. Status at Discharge Cognitive/behavioral status at discharge: Stable Time Spent with Patient Time attestation: Total time spent providing and/or coordinating discharge services: 45 minutes Exam Narrative: - GENERAL: Pleasant woman in No acute d istress. Well-nourished. - EYES: EOMI. Anicteric. - HENT: Moist mucous membranes. Hearing aids - LUNGS: Clear to auscultation bilateral ly, no wheezing, rhonchi, or rales. - CARDIOVASCULAR: Regular in rhythm - ABDOMEN: Soft, non-tender and non-dist ended. No palpable masses. - EXTREMITIES: No peripheral edema. Xuan pheral pulses 2+. - NEUROLOGIC: No focal neurological defi cits. CN II-XII grossly intact. - PSYCHIATRIC: Awake, Alert and oriented x 3. Appropriate mood and affect. - SKIN: No rashes or lesions. Warm. - LYMPH: No cervical lymphadenopathy. Const: Other: A&O x4 Resp: Other: Right lower lung bhandari decreased breath sounds DS: Data Data Completed and Pending Labs on day of discharge: Labs from last 24 hours 07/17/25 05:52 Sodium 136 L Potassium 3.6 Chloride 104 Carbon Dioxide 27 Anion Gap 5 BUN 17 Creatinine 0.76 Estim Creat Clear Calc 66 Estimated GFR > 60 Glucose 84 Calcium 8.4 Magnesium 2.3 Discharge Plan Discharge Attending physician on discharge: Carlos Carolina Consulting providers: Johnie Aguilar Discharging Clinician: Carlos Carolina Anticipated Discharge Date/Time: 07/17/25 09:00 Patient Disposition: Home Activity: as tolerated Diet: heart healthy Discharge Instructions: Check blood pressure 1 to 2 times a day. Record and bring into your doctor for review. Call your doctor if your blood pressure is greater than 180/110 or less than 90/45. Walk with cane or other assist device. Take precautions to avoid falls. Rise slowly from a lying or sitting position. Pause before standing or walking. Contact your doctor or call 911 and come to the Emergency Room if you have any type of trauma, lightheadedness with standing or other worrisome symptoms. Avoid NSAIDs (ibuprofen, naproxen, Aleve). Tylenol is safe to take. Follow-up with your primary care provider in 1-2 weeks. Please call for appointment. Follow-up with Cardiology in 2-4 weeks. Please call for an appointment. Thank you for using [facility] for your health care needs. Patient Instructions: Antibiotic Form, Heart Failure (GEN), A-fib (Atrial Fibrillation) (GEN), Low-Sodium Diet (GEN), Blood Thinners (GEN) Patient Language: New Zealander Stand Alone Forms: General Discharge Information Follow-up/Referrals: Arnulfo Aguilar MD [Physician, Cardiology] - 1 Week Referral Note: 1-2 weeks hospital follow up for afib s/p cardioversion Marley Razo DO [Primary Care Provider, Family Practice] - 1 Week Discharge Medications: New amiodarone [Pacerone] 200 mg Tablet 200 mg PO Q12HR 14 Days Qty: 28 0RF metoprolol succinate 50 mg Tablet Extended Release 24 Hr 50 mg PO QAM 30 Days Qty: 30 0RF losartan 25 mg Tablet 25 mg PO DAILY 30 Days Qty: 30 0RF furosemide 20 mg Tablet 20 mg PO DAILY 30 Days Qty: 30 0RF Xarelto 20 mg Tablet 20 mg PO DAILY@1700 30 Days Qty: 30 0RF Jardiance 10 mg Tablet 10 mg PO DAILY 30 Days Qty: 30 0RF Continued aspirin 81 mg tablet 81 mg PO DAILY omeprazole 20 mg tablet,delayed release (DR/EC) 20 mg PO DAILY Discontinued losartan-hydrochlorothiazide 50-12.5 mg tablet 1 tablet PO DAILY 90 Days Qty: 90 3RF Date of admission: 07/14/25 14:51 Primary Care Provider: Marley Razo Admitting Provider: Floresita Nevarez Attending physician on admission: Floresita Nevarez Condition: Stable
[2025-07-17 13:55] VITALS: BP 99/65; PULSE 72; RESP 20; TEMP 36.9; O2SAT 95
== END 2025-07-17 15:15 | disposition home or self-care (01) | DRG 308 ==
LOC: ANHED 17:09 → ANHIMU 21:10 → ANH3MEDSUR 07-16 17:45
PROVIDERS: Internal Medicine; Physician Assistant; Student in an Organized Health Care Education/Training Program; Admitting Provider General Practice; Emergency Provider Emergency Medicine; PCP Family Medicine; Visit Provider General Practice
PROC: 5A2204Z Restoration of Cardiac Rhythm, Single (ICD-10-PCS; CPT 93312; principal; 2025-07-16 10:45)
PROC: 5A2204Z Restoration of Cardiac Rhythm, Single (ICD-10-PCS; 2025-07-16 10:45)
DX: I48.0 Paroxysmal atrial fibrillation (principal); I50.21 Acute systolic (congestive) heart failure; I71.21 Aneurysm of the ascending aorta, without rupture; I11.0 Hypertensive heart disease with heart failure; K21.9 Gastro-esophageal reflux disease without esophagitis; F10.10 Alcohol abuse, uncomplicated; F12.90 Cannabis use, unspecified, uncomplicated; Z66 Do not resuscitate; Z96.653 Presence of artificial knee joint, bilateral; Z87.891 Personal history of nicotine dependence; Z79.82 Long term (current) use of aspirin
CPT/HCPCS: 36415; 71045; 71275; 80048; 80053; 80061; 83690; 83735; 83880; 84443; 84484; 85025; 85380; 85610; 85730; 92960; 93005; 93306; 93312; 93320; 93325; 96361; 96374; 96375; 99285; A9270; C8925; G0378; J0283; J0616; J1163; J1650; J1938; J2003; J2405; J2704; J7040; J7120; Q9957; Q9967

== ENCOUNTER 2025-07-23 12:34 | Outpatient (CLI) | payer MEDICARE, SELFPAY ==
[2025-07-23 13:30] LABS: Anion Gap 6 mmol/L (4-12); Blood Urea Nitrogen 19 mg/dL (7-17); Calcium 9.0 mg/dL (8.4-10.2); Carbon Dioxide 27 mmol/L (22-30); Chloride 105 mmol/L (98-107); Estimated Glomerular Filt Rate > 60; Glucose 82 mg/dL (65-110); Potassium 3.8 mmol/L (3.4-5.0); Sodium 138 mmol/L (137-145)
--- OUTSIDE RECORDS SUMMARY | 2025-07-23 14:23 | XMS_ITS | Clinical Summary ---
Author Organization [facility] Address [address] [place] [id number] Care Team Providers Care Hr Systems Analyst Name Role Phone Thong Landaverde MD Primary Care Provider +1- [phone] Social History Tobacco Use Types Packs/Day Years [...] age to complete this topic Care Teams Hr Systems Analyst Relationship Specialty Start Date End Date Thong Landaverde MD [address] [address] PCP - General 06/09/10
--- OUTSIDE RECORDS SUMMARY | 2025-07-23 14:23 | XMS_ITS | Clinical Summary ---
Author Organization [facility] Address [address] [place] [address] Phone Care Team Providers Care Intervention Analyst Name Role Phone Unavailable Primary Care [...] (1 - 1-dose 75+ series) 2028 Insurance [facility] [id number] RX [employer] RX Member Subscriber Plan / Payer (Ef fective 2018-Present) Name:Merced Rodriguez Relation to Subscriber:Self Name:Merced Rodriguez Payer ID:Not on file Group ID:[id number] Type:RX Medicare Part D Address: [facility] [place] [place] RX [employer] [place]) [facility]
== END 2025-07-23 12:35 | disposition home or self-care (01) ==
LOC: ANHLAB 12:35
PROVIDERS: PCP Family Medicine; Visit Provider Family Medicine
DX: I48.91 Unspecified atrial fibrillation (principal)
CPT/HCPCS: 36415; 80048

== ENCOUNTER 2025-08-14 14:47 | Outpatient (CLI) | payer MEDICARE, SELFPAY ==
[2025-08-14 15:33] LABS: Blood Urea Nitrogen 14 mg/dL (7-17); Calcium 9.1 mg/dL (8.4-10.2); Carbon Dioxide 30 mmol/L (22-30); Chloride 104 mmol/L (98-107); Estimated Glomerular Filt Rate > 60; Glucose 102 mg/dL (65-110); Potassium 4.0 mmol/L (3.4-5.0)
[2025-08-14 15:43] LABS: Anion Gap 6 mmol/L (4-12); Sodium 140 mmol/L (137-145)
--- OUTSIDE RECORDS SUMMARY | 2025-08-14 17:17 | XMS_ITS | Clinical Summary ---
Author Organization [facility] Address [address] [place] [address] Phone Care Team Providers Care Acls Specialist Name Role Phone Unavailable Primary Care Provider Unavailabl e Allergies No known active allergies Medications ondansetron (ZOFRAN ODT) 4 mg Tablet, Rapid Dissolve Dissolve 1 Tablet (4 mg) on top of tongue and swallow with saliva every 8 hours as needed for nausea/vomiti ng. 10 Tablet 03/26/2025 8:09 PM CDT 03/26/2025 Active Encounters Date Type Department Care Team Description 07/31/2025 External Device Data [facility] Provider, Abstract 07/31/2025 External Device Data [facility] Provider, Abstract 07/03/2025 External Device Data [facility] Provider, [...] (1 - 1-dose 75+ series) 2028 Insurance [facility] [id number] RX [employer] RX Member Subscriber Plan / Payer (Ef fective 2018-Present) Name:Merced Rodriguez Relation to Subscriber:Self Name:Merced Rodriguez Payer ID:Not on file Group ID:[id number] Type:RX Medicare Part D Address: [place] [address] RX [employer] ([employer]) [facility] [employer]
--- OUTSIDE RECORDS SUMMARY | 2025-08-14 17:17 | XMS_ITS | Clinical Summary ---
Author Organization [facility] Address [address] [place] [address] Care Team Providers Care Procedure Tech Name Role Phone Thong Landaverde MD Primary Care Provider +1- [phone] Social History Tobacco Use Types Packs/Day Years [...] age to complete this topic Care Teams Procedure Tech Relationship Specialty Start Date End Date Thong Landaverde MD [address] [address] PCP - General 06/09/10
== END 2025-08-14 14:48 | disposition home or self-care (01) ==
LOC: ANHLAB 14:51
PROVIDERS: PCP Family Medicine; Visit Provider Nurse Practitioner Family
DX: Z09 Encounter for follow-up examination after completed treatment for conditions other than malignant neoplasm (principal); I51.89 Other ill-defined heart diseases
CPT/HCPCS: 36415; 80048